=== PATIENT | female | born 1945 | race Hispanic/Latino ===

== ENCOUNTER 2017-07-04 09:48 | Emergency (ER) | payer OTHER ==
[2017-07-04] MEDS ORDERED: HYDROCODONE/APAP 10/325 TAB ONE (10:37)
--- NOTE | 2017-07-04 10:55 | RAD REPORT ---
EXAM DESCRIPTION: Isha Philippe (2 Views)07/04/2017 10:46 am CLINICAL HISTORY: Cough COMPARISON: March 2017 FINDINGS: The lungs appear clear of acute infiltrate. The heart is normal size IMPRESSION: No acute abnormalities displayed
[2017-07-04 11:14] LABS: Absolute Lymphocytes (CBC) 1.6 K/uL (0.7-4.9); Absolute Monocytes 0.9 K/uL (0.1-1.3); Absolute Neutrophil 7.1 K/uL (1.8-8.0); Basophils % 0.4 % (0-1.3); Eosinophils % 0.7 % (0-4.4); Hematocrit 34.7 % (36.0-45.0); MCH 27.5 pg (27.0-35.0); MCV 82.5 fL (80-100); MPV 8.5 fL (7.6-11.3); Monocytes % 9.7 % (3.3-12.3); RBC Red Blood Cell Count 4.21 M/uL (3.86-4.86)
[2017-07-04 11:26] LABS: Bicarbonate 28 mEq/L (21-31); Glucose Level 137 mg/dL (65-120); Potassium 3.6 mEq/L (3.6-5.0); Sodium Level 136 mEq/L (135-145)
[2017-07-04 11:27] LABS: BUN Blood Urea Nitrogen 10 mg/dL (6-20)
--- NOTE | 2017-07-04 14:02 | ER ---
Nurse's Notes [facility] Name: Estephania Corrales Age: 71 yrs Sex: Female : 1945 Arrival Date: 07/04/2017 Time: 09:51 Bed 16 Private MD: Diagnosis: Chest pain, unspecified;Contusion of left hip Presentation: 07/04 10:02 Presenting complaint: Patient states: mid-sternal chest pain that began 3 days ago. Pt aa5 states "I also had a fall 3 weeks ago and my left leg has been hurting". Transition of care: patient was not received from another setting of care. Onset of symptoms was 2018. Initial Sepsis Screen: Does the patient meet any 2 criteria? No. Patient's initial sepsis screen is negative. Does the patient have a suspected source of infection? No. Patient's initial sepsis screen is negative. Care prior to arrival: None. 10:02 Method Of Arrival: Ambulatory aa5 10:02 Acuity: PALMIR[place] 3 aa5 Historical: - Allergies: 10:03 No Known Allergies; aa5 - PMHx: 10:03 Diabetes - IDDM; Herniated disc; High Cholesterol; Hypertension; aa5 - PSHx: 10:04 elisa knees; right hip; Appendectomy; Cholecystectomy; aa5 - Immunization history:: Pneumococcal vaccine status is unknown. - Social history:: Smoking status: Patient/guardian denies using tobacco. - Family history:: not pertinent. - Hospitalizations: : No recent hospitalization is reported. Screenin:10 Abuse screen: Denies threats or abuse. Nutritional screening: No deficits noted. rb1 Tuberculosis screening: No symptoms or risk factors identified. Fall Risk Fall in past 12 months (25 points). Secondary diagnosis (15 points) impaired mobility, IV access (20 points). Ambulatory Aid- Crutches/Cane/Walker (15 pts). Gait- Impaired (20 pts.). Mental Status- Oriented to own ability (0 pts). Total Jeffrey Fall Scale indicates High Risk Score (45 or more points). Fall prevention measures have been instituted. Side Rails Up X 2 Placed Close to Nursing Station 1:1 Attendant Assigned Frequent Obs/Assessments Occuring As available patient and family educated on Fall Prevention Program and Strategies. Assessment: 10:10 General: Appears uncomfortable, Behavior is calm, cooperative, Denies fever, pt. rb1 stated, "I had both knees repaired and fell 3 weeks ago and hurt my back.". Pain: Complains of pain in left low back Pain radiates to left leg Pain currently is 10 out of 10 on a pain scale. Pain began gradually. Neuro: Level of Consciousness is awake, alert, obeys commands, Oriented to person, place, time, situation. Cardiovascular: Capillary refill < 3 seconds is brisk in bilateral fingers. Respiratory: Airway is patent Respiratory effort is even, unlabored, Respiratory pattern is regular, symmetrical. GI: No signs and/or symptoms were reported involving the gastrointestinal system. : No signs and/or symptoms were reported regarding the genitourinary system. Derm: Skin is dry, Skin is normal, Skin temperature is warm. Musculoskeletal: Range of motion: intact in all extremities. 11:00 Reassessment: Patient appears in no apparent distress at this time. No changes from rb1 previously documented assessment. 12:00 Reassessment: Patient appears in no apparent distress at this time. Patient and/or rb1 family updated on plan of care and expected duration. Pain level reassessed. Patient is alert, oriented x 3, equal unlabored respirations, skin warm/dry/pink. 13:00 Reassessment: Patient appears in no apparent distress at this time. No changes from rb1 previously documented assessment. Family at bedside. 14:00 Reassessment: Patient appears in no apparent distress at this time. Patient and/or rb1 family updated on plan of care and expected duration. Pain level reassessed. Patient is alert, oriented x 3, equal unlabored respirations, skin warm/dry/pink. Vital Signs: 10:05 BP 141 / 67; Pulse 80; Resp 16 S; Temp 98.1(O); Pulse Ox 100% on R/A; Weight 69.4 kg aa5 (R); Height 5 ft. 3 in. (160.02 cm) (R); Pain 10/10; 11:00 BP 124 / 52; Pulse 68; Resp 17; Pulse Ox 99% on R/A; rb1 12:00 BP 101 / 48; Pulse 63; Resp 18; Pulse Ox 96% on R/A; rb1 13:00 BP 110 / 52; Pulse 83; Resp 17; Pulse Ox 100% on R/A; rb1 14:00 BP 101 / 79; Pulse 71; Resp 17; Pulse Ox 97% on R/A; Pain 8/10; rb1 10:05 Body Mass Index 27.10 (69.40 kg, 160.02 cm) aa5 ED Course: 09:51 Patient arrived in ED. sb2 10:03 Triage completed. aa5 10:03 Arm band placed on. aa5 10:08 Gaurang Rosales MD is Attending Physician. rn 10:10 Patient has correct armband on for positive identification. Bed in low position. Call rb1 light in reach. Side rails up X 1. Pulse ox on. NIBP on. 10:10 Patient maintains SpO2 saturation greater than 95% on room air. rb1 10:34 Nunu Pastrana, CLAIR is Primary Nurse. rb1 10:43 Patient moved to radiology via wheelchair. jr1 10:43 X-ray completed. Patient tolerated procedure well. jr1 10:43 XRAY Chest Pa And Lat (2 Views) In Process Unspecified. EDMS 11:11 EKG done, by ED staff, reviewed by Gaurang Rosales MD. Initial lab(s) drawn, by de, sent to [facility] lab. Inserted saline lock: 22 gauge in right antecubital area, using aseptic technique. Blood collected. 14:02 XRAY Hip LEFT 2 view In Process Unspecified. EDMS 14:02 XRAY Pelvis In Process Unspecified. EDMS 14:28 IV discontinued, intact, bleeding controlled, No redness/swelling at site. Pressure rb1 dressing applied. 14:28 No provider procedures requiring assistance completed. rb1 Administered Medications: 10:39 Drug: [place] 10 mg-325 mg 1 tabs Route: PO; rb1 11:10 Follow up: Response: No adverse reaction; Pain is decreased rb1 14:13 Drug: TORadol 30 mg Route: IM; Site: left gluteus; rb1 14:27 Follow up: Response: No adverse reaction rb1 Outcome: 14:01 Discharge ordered by . rn 14:28 Patient left the ED. rb1 14:28 Discharged to home ambulatory. rb1 14:28 Condition: stable 14:28 Discharge instructions given to patient, Instructed on discharge instructions, follow up and referral plans. medication usage, Demonstrated understanding of instructions, follow-up care, medications, Prescriptions given X 1. Signatures: Dispatcher [employer] EDMS Elise Duran jr1 Gaurang Rosales MD MD rn Calderon, Audri, RN RN aa5 Nunu Pastrana, RN RN rb1 Woody, Shantell dh3 Benita Iqbal 2
--- NOTE | 2017-07-04 14:03 | EDPHYS ---
Physician Documentation [facility] Name: Estephania Corrales Age: 71 yrs Sex: Female : 1945 Arrival Date: 07/04/2017 Time: 09:51 Bed 16 Private MD: ED Physician Gaurang Rosales HPI: 07/04 13:06 This 71 yrs old Female presents to ER via Ambulatory with complaints of Chest rn Pain, left hip pain. 13:06 The patient or guardian reports chest pain that is located primarily in the anterior rn chest wall. Onset:. The pain does not radiate. The chest pain is described as aching. Modifying factors: The symptoms are alleviated by nothing. the symptoms are aggravated by movement, palpation of area. Severity of pain: At its worst the pain was mild in the emergency department the pain is unchanged. The patient has experienced similar episodes in the past. Reports chronic chest pain, has seen Dr. Nunes multiple times, states he told her "heart is normal" and not causing her chest pain episodes, reports intermittent chest pain over the last week, feels daily, worse with movement and palpation, reports fell 3 weeks ago and having intermittent left hip pain since then, saw her doctor after fall but no xrays ordered. No fever/cough. Seen at urgent care yesterday, given abx for earinfection. . Historical: - Allergies: 10:03 No Known Allergies; aa5 - PMHx: 10:03 Diabetes - IDDM; Herniated disc; High Cholesterol; Hypertension; aa5 - PSHx: 10:04 elisa knees; right hip; Appendectomy; Cholecystectomy; aa5 - Immunization history:: Pneumococcal vaccine status is unknown. - Social history:: Smoking status: Patient/guardian denies using tobacco. - Family history:: not pertinent. - Hospitalizations: : No recent hospitalization is reported. ROS: 13:06 Constitutional: Negative for fever, chills, and weight loss, Eyes: Negative for injury, rn pain, redness, and discharge, Neck: Negative for injury, pain, and swelling, Cardiovascular: + chest pain Respiratory: Negative for shortness of breath, cough, wheezing, and pleuritic chest pain, Abdomen/GI: Negative for abdominal pain, nausea, vomiting, diarrhea, and constipation, Back: Negative for injury and pain, MS/Extremity: Negative for deformity, Skin: Negative for injury, rash, and discoloration, Neuro: Negative for headache, weakness, numbness, tingling, and seizure. Exam: 13:06 Constitutional: This is a well developed, well nourished patient who is awake, alert, rn sitting, changing into gown. Head/Face: Normocephalic, atraumatic. Eyes: Pupils equal round and reactive to light, extra-ocular motions intact. Lids and lashes normal. Conjunctiva and sclera are non-icteric and not injected. Cornea within normal limits. Periorbital areas with no swelling, redness, or edema. Neck: Trachea midline, no thyromegaly or masses palpated, and no cervical lymphadenopathy. Supple, full range of motion without nuchal rigidity, or vertebral point tenderness. No Meningismus. Chest/axilla: + reproducible anterior chest wall tenderness, no skin changes Cardiovascular: Regular rate and rhythm with a normal S1 and S2. No gallops, murmurs, or rubs. Normal PMI, no JVD. No pulse deficits. Respiratory: Lungs have equal breath sounds bilaterally, clear to auscultation and percussion. No rales, rhonchi or wheezes noted. No increased work of breathing, no retractions or nasal flaring. MS/ Extremity: Pulses equal, no cyanosis. Neurovascular intact. Full, normal range of motion. Equal circumference. Neuro: Awake and alert, GCS 15, oriented to person, place, time, and situation. Cranial nerves II-XII grossly intact. Motor strength 5/5 in all extremities. Sensory grossly intact. Cerebellar exam normal. Normal gait. Vital Signs: 10:05 BP 141 / 67; Pulse 80; Resp 16 S; Temp 98.1(O); Pulse Ox 100% on R/A; Weight 69.4 kg aa5 (R); Height 5 ft. 3 in. (160.02 cm) (R); Pain 10/10; 11:00 BP 124 / 52; Pulse 68; Resp 17; Pulse Ox 99% on R/A; rb1 12:00 BP 101 / 48; Pulse 63; Resp 18; Pulse Ox 96% on R/A; rb1 13:00 BP 110 / 52; Pulse 83; Resp 17; Pulse Ox 100% on R/A; rb1 14:00 BP 101 / 79; Pulse 71; Resp 17; Pulse Ox 97% on R/A; Pain 8/10; rb1 10:05 Body Mass Index 27.10 (69.40 kg, 160.02 cm) aa5 MDM: 10:08 Patient medically screened. 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 . 14:01 Differential diagnosis: anxiety, chest wall pain, costochondritis, gastroesophageal rn reflux disease (GERD), pleurisy, pneumothorax. Data reviewed: vital signs, nurses notes, lab test result(s), EKG, radiologic studies, plain films, and as a result, I will discharge patient. Counseling: I had a detailed discussion with the patient and/or guardian regarding: the historical points, exam findings, and any diagnostic results supporting the discharge/admit diagnosis, lab results, radiology results, the need for outpatient follow up, to return to the emergency department if symptoms worsen or persist or if there are any questions or concerns that arise at home. Special discussion: Based on the patient's history, exam, and Dx evaluation, there is no indication for emergent intervention or inpatient Tx. It is understood by the patient/guardian that if the Sx's persist or worsen they need to return immediately for re-evaluation. I discussed with the patient/guardian in detail that at this point there is no indication for admission to the hospital. It is understood, however, that if the symptoms persist or worsen the patient needs to return immediately for re-evaluation. 07/04 10:15 Order name: CBC with Diff; Complete Time: 11:38 rn 07/04 10:15 Order name: Basic Metabolic Panel; Complete Time: : rn 07/04 10:15 Order name: Troponin (emerg Dept Use Only); Complete Time: 11: rn 07/04 10:15 Order name: XRAY Chest Pa And Lat (2 Views); Complete Time: 11: rn 07/04 12:29 Order name: XRAY Hip LEFT 2 view; Complete Time: 14:18 rn 07/04 12:30 Order name: XRAY Pelvis; Complete Time: 14:18 rn 07/04 10:15 Order name: IV Start; Complete Time: 11: rn 07/04 10:15 Order name: EKG - Nurse/Tech; Complete Time: 11: rn 07/04 10:15 Order name: EKG; Complete Time: 10:16 rn Administered Medications: 10:39 Drug: [place] 10 mg-325 mg 1 tabs Route: PO; rb1 11:10 Follow up: Response: No adverse reaction; Pain is decreased rb1 14:13 Drug: TORadol 30 mg Route: IM; Site: left gluteus; rb1 14:27 Follow up: Response: No adverse reaction rb1 Disposition: 07/04/17 14:01 Discharged to Home. Impression: Chest pain, unspecified, Contusion of left hip. - Condition is Stable. - Discharge Instructions: Contusion, Nonspecific Chest Pain, Hip Pain. - Prescriptions for Ultram 50 mg Oral Tablet - take 1 tablet by ORAL route every 6 hours As needed; 15 tablet. - Medication Reconciliation Form, Thank You Letter, Antibiotic Education, Prescription Opioid Use form. - Follow up: Private Physician; When: As needed; Reason: Recheck today's complaints, Re-evaluation by your physician. - Problem is chronic. - Symptoms have improved. Signatures: Dispatcher [employer] EDMS Gaurang Rosales MD MD rn Calderon, Audri RN RN aa5 Nunu Pastrana RN RN rb1 Corrections: (The following items were deleted from the chart) 14:28 14:01 07/04/2017 14:01 Discharged to Home. Impression: Chest pain, unspecified; rb1 Contusion of left hip. Condition is Stable. Forms are Medication Reconciliation Form, Thank You Letter, Antibiotic Education, Prescription Opioid Use. Follow up: Private Physician; When: As needed; Reason: Recheck today's complaints, Re-evaluation by your physician. Problem is chronic. Symptoms have improved. rn
[2017-07-04] MEDS ORDERED: KETOROLAC 30 MG/ML INJ ONE (14:13)
--- NOTE | 2017-07-04 14:16 | RAD REPORT ---
EXAM DESCRIPTION: RAD - Pelvis - 07/04/2017 2:02 pm CLINICAL HISTORY: Pelvic pain status post injury FINDINGS: No acute fracture or dislocation is seen. The bones are osteoporotic. Moderate osteoarthritis involves the left hip. Intramedullary blanca and compression screw in place into proximal right femur in good alignment
--- NOTE | 2017-07-04 14:17 | RAD REPORT ---
EXAM DESCRIPTION: RAD - Hip Left 2 View - 07/04/2017 2:02 pm CLINICAL HISTORY: Left hip pain status post injury FINDINGS: No acute fracture or dislocation is seen. The bones are osteoporotic. Moderate osteoarthritis involves the left hip.
[2017-07-04 14:32] VITALS: TEMP 98.1
[2017-07-04 14:36] VITALS: BP 110/52; O2SAT 100
--- NOTE | 2017-07-05 05:49 | EKG ---
Test Date: 2017-07-04 Test Time: 10:50:30 Collator: JODY MEASUREMENT RESULTS: Intervals: Rate: 70 SC: 154 QRSD: 74 QT: 388 QTc: 419 [place]: P: 15 SC: 154 QRS: -34 T: 37 INTERPRETIVE STATEMENTS: Normal sinus rhythm Left axis deviation Abnormal ECG Compared to ECG 03/20/2017 17:19:47 Left-axis deviation now present Electronically Signed On 07-05-17 05:48:12 CDT by Rodolfo Ritter
== END 2017-07-04 14:28 | disposition home or self-care (01) ==
LOC: ER 09:48
DX: S70.02XA Contusion of left hip, initial encounter (principal); W19.XXXA Unspecified fall, initial encounter; Y93.9 Activity, unspecified; Y92.9 Unspecified place or not applicable; I10 Essential (primary) hypertension
CPT/HCPCS: 36415; 71046; 72170; 80048; 84484; 85025; 93005; 96372; 99285

== ENCOUNTER 2017-07-31 10:56 | Emergency (ER) | payer OTHER ==
[2017-07-31] MEDS ORDERED: KETOROLAC 30 MG/ML INJ ONE (11:39)
[2017-07-31 11:51] LABS: Absolute Lymphocytes (CBC) 0.9 K/uL (0.7-4.9); Absolute Monocytes 0.7 K/uL (0.1-1.3); Absolute Neutrophil 11.2 K/uL (1.8-8.0); Basophils % 0.3 % (0-1.3); Eosinophils % 0.7 % (0-4.4); Hematocrit 34.3 % (36.0-45.0); Lymphocytes % 6.9 % (15.3-44.8); MCH 26.9 pg (27.0-35.0); MCV 83.3 fL (80-100); Monocytes % 5.5 % (3.3-12.3); RBC Red Blood Cell Count 4.12 M/uL (3.86-4.86)
[2017-07-31 12:08] LABS: Potassium 4.4 mEq/L (3.6-5.0)
[2017-07-31 12:15] LABS: Platelet Estimate ADEQ; Urine White Blood Cell Casts OK
[2017-07-31 12:16] LABS: Blood Morphology Comment NOT SEEN (NOT SEEN)
[2017-07-31 12:18] LABS: C-Reactive Protein 181.1 mg/L (<10.0)
[2017-07-31] MEDS ORDERED: FENTANYL CITR 100 MCG/2 ML ONE (13:21)
--- NOTE | 2017-07-31 13:23 | RAD REPORT ---
EXAM DESCRIPTION: RAD - Chest Single View - 07/31/2017 1:04 pm CLINICAL HISTORY: Chest and back pain COMPARISON: July 07 TECHNIQUE: AP portable chest image was obtained 1220 hours . FINDINGS: No focal mass, consolidation or failure. Lung markings are not significantly different fro m comparison. Heart and vasculature are normal. No measurable pleural effusion and no pneumothorax. N o acute bone finding. Left shoulder degenerative change and right shoulder degenerative and clavicle postsurgical changes noted. Old rib trauma changes are noted. No acute aortic findings suspected. IMPRESSION: No acute cardiopulmonary process. Chest is not significantly different from comparison.
--- NOTE | 2017-07-31 13:24 | ER ---
Nurse's Notes [facility] Name: Estephania Corrales Age: 71 yrs Sex: Female : 1945 Arrival Date: 07/31/2017 Time: 10:56 Bed 14 Private MD: Out, [facility] Diagnosis: Pain in knee;Pain in joint;Other chronic pain Presentation: 07/31 11:01 Presenting complaint: Patient states: Reports bilateral knee pain, neck and back pain, aj and chest pain that started 4 days ago. Patient is seeing pain management for same issues but states, "I just need something stronger for pain, can't you just give me like Tylenol #3?". 11:03 Transition of care: patient was not received from another setting of care. Onset of aj symptoms was July 27, 2017. Care prior to arrival: None. 11:03 Method Of Arrival: Wheelchair aj 11:03 Acuity: PALM[place]A 3 aj 12:17 Risk Assessment: Do you want to hurt yourself or someone else? Patient reports no ae1 desire to harm self or others. Initial Sepsis Screen: Does the patient meet any 2 criteria? No. Patient's initial sepsis screen is negative. Does the patient have a suspected source of infection? No. Patient's initial sepsis screen is negative. Triage Assessment: 11:05 General: Appears in no apparent distress. uncomfortable, Behavior is calm, cooperative, aj appropriate for age. Pain: Complains of pain in right knee, left knee, back of neck, back and chest. Neuro: Level of Consciousness is awake, alert, obeys commands, Oriented to person, place, time, situation, Appropriate for age. Cardiovascular: Capillary refill < 3 seconds in bilateral Patient's skin is warm and dry. Respiratory: Airway is patent Respiratory effort is even, unlabored, Respiratory pattern is regular, symmetrical. GI: No signs and/or symptoms were reported involving the gastrointestinal system. Derm: Skin is intact, is healthy with good turgor, Skin is pink, warm \\T\\ dry. normal. Musculoskeletal: Reports pain in right knee, left knee, back of neck, back and chest. Historical: - Allergies: 11:05 No Known Drug Allergies; aj - Home Meds: 11:05 carvedilol 25 mg Oral tab [Active]; celecoxib 200 mg Oral cap 1 cap once daily aj [Active]; cyclobenzaprine 5 mg Oral tab 1 tab 2 times daily [Active]; Janumet XR 50-1,000 mg Oral TM24 1 tab BID [Active]; Lyrica 75mg Oral 1 cap 3 times per day [Active]; Tramadol Oral [Active]; - PMHx: 11:05 Diabetes - IDDM; High Cholesterol; Hypertension; Herniated disc; Chronic pain; aj - PSHx: 11:05 right hip; elisa knees; Appendectomy; Cholecystectomy; aj - Immunization history:: Adult Immunizations up to date. - Social history:: Smoking status: Patient/guardian denies using tobacco. - Ebola Screening: : Patient negative for fever greater than or equal to 101.5 degrees Fahrenheit, and additional compatible Ebola Virus Disease symptoms Patient denies exposure to infectious person Patient denies travel to an Ebola-affected area in the 21 days before illness onset No symptoms or risks identified at this time. Screenin:16 Abuse screen: Denies threats or abuse. Denies injuries from another. Nutritional ae1 screening: No deficits noted. Tuberculosis screening: No symptoms or risk factors identified. Fall Risk None identified. Assessment: 12:00 General: Appears distressed, uncomfortable, Behavior is cooperative, agitated, anxious, ae1 crying, restless. Pain: Complains of pain in right knee Pain does not radiate. Patient reports "pain all over". Neuro: Level of Consciousness is awake, alert, obeys commands, Oriented to person, place, time, situation. Cardiovascular: Heart tones S1 S2 present Patient's skin is warm and dry. Respiratory: Airway is patent Respiratory effort is even, unlabored, Respiratory pattern is regular, symmetrical, Breath sounds are clear bilaterally. GI: No signs and/or symptoms were reported involving the gastrointestinal system. Abdomen is round Bowel sounds present X 4 quads. Abd is soft and non tender X 4 quads. : No signs and/or symptoms were reported regarding the genitourinary system. EENT: No signs and/or symptoms were reported regarding the EENT system. Derm: Skin is normal. Musculoskeletal: Reports pain in right knee denies injury, states pain started 4-5 days prior. 12:17 Pain: Pain began gradually, 4-5 days ago. ae1 13:09 Reassessment: Reassessment: Patient is sitting up in bed. General: Behavior is ae1 agitated, anxious, crying, restless. Pain: Complains of pain in back. Vital Signs: 11:05 BP 123 / 60; Pulse 92; Resp 16; Temp 98.7; Pulse Ox 98% on R/A; Weight 69.4 kg; Height aj 5 ft. 3 in. (160.02 cm); 13:08 BP 148 / 83; Pulse 93; Resp 17; Pulse Ox 98% on R/A; ae1 11:05 Body Mass Index 27.10 (69.40 kg, 160.02 cm) ED Course: 10:56 Patient arrived in ED. sb2 10:57 Out, [facility] is Private Physician. sb2 11:04 Triage completed. aj 11:05 Arm band placed on left wrist. Patient placed in an exam room. aj 11:08 John Chance, CLAIR is Primary Nurse. ae1 11:09 Jeffrey Logan PA is PHCP. jr8 11:09 Ted Garcia MD is Attending Physician. jr8 11:29 EKG done, by veterinary technician instructor. reviewed by Jeffrey YUSUF. at1 11:55 Initial lab(s) drawn, by va, sent to lab. Inserted saline lock: 24 gauge in right mh5 wrist, using aseptic technique. Blood collected. 11:56 Patient has correct armband on for positive identification. Placed in gown. Bed in low mh5 position. Call light in reach. Side rails up X2. Adult w/ patient. Warm blanket given. Pillow given. ekg monitor tech on. Pulse ox on. NIBP on. 11:57 Troponin (emerg Dept Use Only) Sent. mh5 11:57 ESR Sent. mh5 11:57 C-Reactive Protein Sent. mh5 11:57 Basic Metabolic Panel Sent. mh5 12:17 Patient maintains SpO2 saturation greater than 95% on room air. ae1 13:05 XRAY Chest (1 view) In Process Unspecified. EDMS 13:08 X-ray completed. Portable x-ray completed in exam room. Patient tolerated procedure mh1 well. 13:59 No provider procedures requiring assistance completed. IV discontinued, intact, ae1 bleeding controlled, No redness/swelling at site. Pressure dressing applied. Administered Medications: 11:45 Drug: TORadol 30 mg Route: IVP; Site: right wrist; ae1 13:13 Follow up: Response: Pain is unchanged, physician notified ae1 13:22 Drug: fentaNYL (PF) 50 mcg Route: IVP; Site: right wrist; ae1 13:58 Follow up: Response: Pain is unchanged, physician notified ae1 Outcome: 13:23 Discharge ordered by . colette 14:06 Discharged to home via wheelchair. ae1 14:06 Condition: stable 14:06 Discharge instructions given to patient, Instructed on discharge instructions, follow up and referral plans. Demonstrated understanding of instructions. 14:07 Patient left the ED. ae1 Signatures: Dispatcher [employer] EDMS Brenna Raygoza RN RN aj Harvey, Martha mh1 Jeffrey Logan PA PA jr8 gonzales, Amanda, rn surgery icu EKG Tat1 John Chance RN RN ae1 Nicky Nunez 5 Benita Iqbal sb2
--- NOTE | 2017-07-31 13:24 | EDPHYS ---
Physician Documentation [facility] Name: Estephania Corrales Age: 71 yrs Sex: Female : 1945 Arrival Date: 07/31/2017 Time: 10:56 Bed 14 Private MD: Out, [facility] ED Physician Ted Garcia HPI: 07/31 13:18 This 71 yrs old Female presents to ER via Wheelchair with complaints of Knee jr8 Pain, Back Pain, Chest Pain. 13:18 Patient came to ED complaining of neck and shoulder pain along with back pain and jr8 bilateral knee pain. Chronic pain patient due to spinal DDD and herniated discs. Sees pain management doctor for spine. Stated that she has never had bilateral knee pain and shoulder/neck pain before . Severity of symptoms: At their worst the symptoms were moderate in the emergency department the symptoms are unchanged. The patient has not experienced similar symptoms in the past. The patient has not recently seen a physician. Historical: - Allergies: 11:05 No Known Drug Allergies; aj - Home Meds: 11:05 carvedilol 25 mg Oral tab [Active]; celecoxib 200 mg Oral cap 1 cap once daily aj [Active]; cyclobenzaprine 5 mg Oral tab 1 tab 2 times daily [Active]; Janumet XR 50-1,000 mg Oral TM24 1 tab BID [Active]; Lyrica 75mg Oral 1 cap 3 times per day [Active]; Tramadol Oral [Active]; - PMHx: 11:05 Diabetes - IDDM; High Cholesterol; Hypertension; Herniated disc; Chronic pain; aj - PSHx: 11:05 right hip; elisa knees; Appendectomy; Cholecystectomy; aj - Immunization history:: Adult Immunizations up to date. - Social history:: Smoking status: Patient/guardian denies using tobacco. - Ebola Screening: : Patient negative for fever greater than or equal to 101.5 degrees Fahrenheit, and additional compatible Ebola Virus Disease symptoms Patient denies exposure to infectious person Patient denies travel to an Ebola-affected area in the 21 days before illness onset No symptoms or risks identified at this time. ROS: 13:18 Eyes: Negative for injury, pain, redness, and discharge, ENT: Negative for injury, jr8 pain, and discharge, Cardiovascular: Negative for chest pain, palpitations, and edema, Respiratory: Negative for shortness of breath, cough, wheezing, and pleuritic chest pain, Abdomen/GI: Negative for abdominal pain, nausea, vomiting, diarrhea, and constipation, Skin: Negative for injury, rash, and discoloration, Neuro: Negative for headache, weakness, numbness, tingling, and seizure. 13:18 Neck: Positive for pain at rest, tenderness. 13:18 Back: Positive for pain at rest, pain with movement, of the left trapezius, right trapezius, left scapular area and right scapular area. 13:18 MS/extremity: Positive for pain, of the right leg and left leg. Exam: 13:18 Eyes: Pupils equal round and reactive to light, extra-ocular motions intact. Lids and jr8 lashes normal. Conjunctiva and sclera are non-icteric and not injected. Cornea within normal limits. Periorbital areas with no swelling, redness, or edema. ENT: Nares patent. No nasal discharge, no septal abnormalities noted. Tympanic membranes are normal and external auditory canals are clear. Oropharynx with no redness, swelling, or masses, exudates, or evidence of obstruction, uvula midline. Mucous membranes moist. Chest/axilla: Normal chest wall appearance and motion. Nontender with no deformity. No lesions are appreciated. Cardiovascular: Regular rate and rhythm with a normal S1 and S2. No gallops, murmurs, or rubs. Normal PMI, no JVD. No pulse deficits. Respiratory: Lungs have equal breath sounds bilaterally, clear to auscultation and percussion. No rales, rhonchi or wheezes noted. No increased work of breathing, no retractions or nasal flaring. Abdomen/GI: Soft, non-tender, with normal bowel sounds. No distension or tympany. No guarding or rebound. No evidence of tenderness throughout. Skin: Warm, dry with normal turgor. Normal color with no rashes, no lesions, and no evidence of cellulitis. Neuro: Awake and alert, GCS 15, oriented to person, place, time, and situation. Cranial nerves II-XII grossly intact. Motor strength 5/5 in all extremities. Sensory grossly intact. Cerebellar exam normal. Normal gait. 13:18 Neck: External neck: tenderness, that is mild, of the left trapezius and right trapezius, C-spine: appears grossly normal, Thyroid: appears normal, Trachea: is midline with no obvious abnormalities, ROM/movement: pain, that is mild, with any movement. 13:18 Back: pain, that is moderate, of the left trapezius, right trapezius, left scapular area and right scapular area. 13:18 Musculoskeletal/extremity: ROM: intact in all extremities, Circulation is intact in all extremities. Sensation intact. bilateral knee tenderness . Vital Signs: 11:05 BP 123 / 60; Pulse 92; Resp 16; Temp 98.7; Pulse Ox 98% on R/A; Weight 69.4 kg; Height aj 5 ft. 3 in. (160.02 cm); 13:08 BP 148 / 83; Pulse 93; Resp 17; Pulse Ox 98% on R/A; ae1 11:05 Body Mass Index 27.10 (69.40 kg, 160.02 cm) aj MDM: 11:09 Patient medically screened. jr8 13:18 Data reviewed: vital signs, nurses notes, lab test result(s), EKG, radiologic studies, jr8 plain films, and as a result, I will discharge patient. Data interpreted: Pulse oximetry: on room air is 98 %. Interpretation: normal. 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 13:18 ED course: discussed with patient and family that her ESR and CRP are elevated. Could jr8 be indicator of rheumatologic condition. Needs to follow up with seasonal recruiter and PCP along with pain management . 07/31 11:33 Order name: CBC with Diff; Complete Time: 13:11 07/31 11:33 Order name: Basic Metabolic Panel; Complete Time: 12:30 07/31 11:33 Order name: C-Reactive Protein; Complete Time: 12:30 07/31 11:33 Order name: ESR; Complete Time: 13:11 07/31 11:33 Order name: Troponin (emerg Dept Use Only); Complete Time: 12:30 07/31 11:56 Order name: CBC Smear Scan; Complete Time: 13:11 EDCT 07/31 11:33 Order name: Urine Dipstick-Ancillary (obtain specimen) [facility] 07/31 11:33 Order name: EKG - Nurse/Tech; Complete Time: 11:35 8 07/31 11:33 Order name: IV; Complete Time: 11:45 8 07/31 11:33 Order name: XRAY Chest (1 view); Complete Time: 13:23 [facility] 07/31 12:17 Order name: EKG Electrocardiogram EDCT Administered Medications: 11:45 Drug: TORadol 30 mg Route: IVP; Site: right wrist; ae1 13:13 Follow up: Response: Pain is unchanged, physician notified ae1 13:22 Drug: fentaNYL (PF) 50 mcg Route: IVP; Site: right wrist; ae1 13:58 Follow up: Response: Pain is unchanged, physician notified ae1 Disposition: 07/31/17 13:23 Discharged to Home. Impression: Pain in knee, Pain in joint, Other chronic pain. - Condition is Stable. - Discharge Instructions: Chronic Pain. - Medication Reconciliation Form, Thank You Letter, Antibiotic Education, Prescription Opioid Use form. - Follow up: Private Physician; When: 2 - 3 days; Reason: Recheck today's complaints, Continuance of care, Re-evaluation by your physician. - Problem is new. - Symptoms have improved. Addendum: 08/02/2017 13:28 Co-signature as Attending Physician, Ted Garcia MD. g s Signatures: Dispatcher [employer] [facility] Brenna Raygoza RN Jeffrey Cobos PA PA jr8 John Chance RN RN ae1 Ted Garcia MD MD Corrections: (The following items were deleted from the chart) 07/31 14:07 13:23 07/31/2017 13:23 Discharged to Home. Impression: Pain in knee; Pain in joint; ae1 Other chronic pain. Condition is Stable. Forms are Medication Reconciliation Form, Thank You Letter, Antibiotic Education, Prescription Opioid Use. Follow up: Private Physician; When: 2 - 3 days; Reason: Recheck today's complaints, Continuance of care, Re-evaluation by your physician. Problem is new. Symptoms have improved. jr8
--- NOTE | 2017-07-31 13:35 | EKG ---
Test Date: 2017-07-31 Test Time: 11:24:33 Bone Drier: ALONSO MEASUREMENT RESULTS: Intervals: Rate: 84 IL: 140 QRSD: 70 QT: 354 QTc: 418 [place]: P: 23 IL: 140 QRS: -16 T: 25 INTERPRETIVE STATEMENTS: Normal sinus rhythm Normal ECG Compared to ECG 07/04/2017 10:50:30 Left-axis deviation no longer present Electronically Signed On 07-31-17 13:34:18 CDT by Rodolfo Ritter
[2017-07-31 14:10] VITALS: TEMP 98.7; O2SAT 98
[2017-07-31 14:11] VITALS: BP 148/83
== END 2017-07-31 14:07 | disposition home or self-care (01) ==
LOC: ER 10:56
DX: G89.29 Other chronic pain (principal); I10 Essential (primary) hypertension; E11.9 Type 2 diabetes mellitus without complications; E78.00 Pure hypercholesterolemia, unspecified
CPT/HCPCS: 36415; 71045; 80048; 84484; 85025; 85652; 86140; 93005; 96374; 96375; 99285; J3010

== ENCOUNTER 2017-10-02 19:20 | Emergency (ER) | payer OTHER ==
[2017-10-02] MEDS ORDERED: ASPIRIN 81 MG CHEWABLE TABLET ONE (20:03)
[2017-10-02 20:07] LABS: Absolute Lymphocytes (CBC) 1.4 K/uL (0.7-4.9); Absolute Monocytes 1.1 K/uL (0.1-1.3); Absolute Neutrophil 6.7 K/uL (1.8-8.0); Basophils % 0.8 % (0-1.3); Eosinophils % 1.4 % (0-4.4); Hematocrit 31.2 % (36.0-45.0); Lymphocytes % 14.9 % (15.3-44.8); MCH 29.1 pg (27.0-35.0); MCV 86.8 fL (80-100); MPV 8.7 fL (7.6-11.3); Monocytes % 11.5 % (3.3-12.3); RBC Red Blood Cell Count 3.59 M/uL (3.86-4.86)
[2017-10-02] MEDS ORDERED: KETOROLAC 30 MG/ML INJ ONE (20:07)
[2017-10-02 20:15] LABS: Protime INR 1.07
[2017-10-02 20:35] LABS: ALT/SGPT 36 U/L (12-78); AST/SGOT 72 U/L (15-37); Albumin 3.4 g/dL (3.4-5.0); Alkaline Phosphatase 128 U/L (45-117); BUN Blood Urea Nitrogen 14 mg/dL (7-18); Bicarbonate 26 mmol/L (21-32); Bilirubin Direct 0.1 mg/dL (0-0.2); Bilirubin Total 0.4 mg/dL (0.2-1.0); CKMB Creatine Kinase MB < 1.0 ng/mL (0.3-3.6); Creatine Phosphokinase 56 U/L (26-192); Glucose Level 183 mg/dL (74-106); Magnesium 1.8 mg/dL (1.8-2.4); NT PRO-BNP 203 pg/mL (<125); Potassium 3.7 mmol/L (3.5-5.1); Protein, Total 7.2 g/dL (6.4-8.2); Sodium Level 141 mmol/L (136-145)
--- NOTE | 2017-10-02 20:50 | RAD REPORT ---
EXAM DESCRIPTION: RAD - Chest Single View - 10/02/2017 8:29 pm CLINICAL HISTORY: Persistent chest pain and neck pain COMPARISON: July 31, 2017 TECHNIQUE: AP portable chest image was obtained 2025 . FINDINGS: No focal lung parenchymal process. No failure or volume overload. Lung markings are simila r to comparison. Heart and vasculature are normal. No measurable pleural effusion and no pneumothorax . No acute bone finding. Chronic degenerative and postsurgical changes are noted at the shoulder join ts. No acute aortic findings suspected. IMPRESSION: No acute cardiopulmonary process. No significant interval change.
--- NOTE | 2017-10-02 21:20 | RAD REPORT ---
EXAM DESCRIPTION: CT - Angio Aorta For Dissection - 10/02/2017 9:10 pm CLINICAL HISTORY: Severe chest pain, neck and back pain COMPARISON: None. TECHNIQUE: Dynamically enhanced 3 mm thick images of the chest, abdomen, and upper pelvis were obtai nae during administration of approximately 150mL Isovue 370 IV contrast. Sagittal and coronal reconst ruction images were generated and reviewed. Exam utilizes a protocol to evaluate entire course of the aorta. All CT scans are performed using dose optimization technique as appropriate and may include automated exposure control or mA/KV adjustment according to patient size. FINDINGS: Aorta is normal in diameter with no dissection or other acute aortic findings. Reconstruct ion images show no significant findings. Pulmonary arteries are normal as well. No cardiomegaly, pericardial thickening or pericardial effusio n. No mass or infiltrate in the lung parenchyma. No pleural thickening, pleural effusion or pneumothorax . No abnormal mediastinal or hilar mass or lymphadenopathy seen. No chest wall mass or abnormal axillar y lymphadenopathy. Celiac, SMA and renal arteries show no suspicious findings. Solid abdominal viscera and bowel show no significant findings. Gallbladder is absent. No biliary tree dilatation. No mass or abnormal lympha denopathy. No free air, free fluid or inflammatory stranding. No urinary bladder abnormality. Postsurgical changes are noted to the right hip with significant bilateral hip joint degenerative estevan nge. Patient has severe lower lumbar degenerative change. L5 pars defects present with grade 1 spondy lolisthesis. There is extensive heterotopic bone formation around the posterior elements. Central spi nal stenosis and foraminal stenosis are pronounced at L5-S1. Mid lumbar spine shows significant but l ess prominent degenerative change. No acute compression fracture or pathologic bone process. IMPRESSION: Negative CT scan of the aorta for dissection, aneurysm or acute finding. No mass, infiltrate or acute CT chest finding. No acute finding of the solid abdominal viscera or bowel. Severe degenerative change in the lower lumbar spine as detailed. No pathologic bone process seen.
[2017-10-02 21:58] LABS: Urine Blood TRACE (NEG); Urine Glucose NEGATIVE (NEG); Urine Protein NEGATIVE (NEG)
[2017-10-02] MEDS ORDERED: FENTANYL CITR 100 MCG/2 ML ONE (21:58)
--- NOTE | 2017-10-02 23:04 | EDPHYS ---
Physician Documentation [facility] Name: Estephania Corrales Age: 71 yrs Sex: Female : 1945 Arrival Date: 10/02/2017 Time: 19:21 Bed 24 Private MD: OSIEL CORLEY ED Physician Gaurang Rosales HPI: 10/02 19:42 This 71 yrs old Female presents to ER via Ambulatory with complaints of Chest cp Pain, Congestion, Neck Pain, >24Hrs Old. Historical: - Allergies: 20:20 No Known Allergies; kr2 - Home Meds: 20:20 carvedilol 25 mg Oral tab [Active]; celecoxib 200 mg Oral cap 1 cap once daily kr2 [Active]; cyclobenzaprine 5 mg Oral tab 1 tab 2 times daily [Active]; Janumet XR 50-1,000 mg Oral TM24 1 tab BID [Active]; Lyrica 75mg Oral 1 cap 3 times per day [Active]; Tramadol Oral [Active]; montelukast 10 mg oral tab 1 tab once daily [Active]; esomeprazole magnesium 20 mg oral cpDR 1 cap once daily [Active]; - PMHx: 20:20 Chronic pain; Diabetes - IDDM; Herniated disc; High Cholesterol; Hypertension; kr2 - PSHx: 20:20 right hip; elisa knees; Appendectomy; Cholecystectomy; kr2 - Immunization history:: Adult Immunizations unknown. - Social history:: Smoking status: Patient/guardian denies using tobacco. - Ebola Screening: : No symptoms or risks identified at this time. ROS: 19:45 Constitutional: Negative for body aches, chills, fever, poor PO intake. cp 19:45 Eyes: Negative for injury, pain, redness, and discharge. cp 19:45 ENT: Negative for drainage from ear(s), ear pain, sore throat, difficulty swallowing, difficulty handling secretions. 19:45 Neck: Positive for pain at rest, Negative for stiffness, bony tenderness. 19:45 Cardiovascular: Positive for chest pain, Negative for edema, palpitations. 19:45 Respiratory: Positive for shortness of breath, Negative for cough, wheezing. 19:45 Abdomen/GI: Negative for abdominal pain, nausea, vomiting, and diarrhea, diarrhea, constipation, black/tarry stool, rectal bleeding. 19:45 Back: Positive for pain at rest. 19:45 : Negative for urinary symptoms. 19:45 MS/extremity: Negative for paresthesias, swelling, tenderness. 19:45 Skin: Negative for cellulitis, rash. 19:45 Neuro: Negative for altered mental status, headache, syncope, near syncope, weakness. 19:45 All other systems are negative. Exam: 19:50 Constitutional: The patient appears in no acute distress, alert, awake, cp non-diaphoretic, non-toxic, well developed, well nourished. 19:50 Head/Face: Normocephalic, atraumatic. cp 19:50 Eyes: Periorbital structures: appear normal, Pupils: equal, round, and reactive to light and accomodation, Extraocular movements: intact throughout, Conjunctiva: normal, no exudate, no injection, Sclera: no appreciated abnormality, Lids and lashes: appear normal, bilaterally. 19:50 ENT: External ear(s): are unremarkable, Ear canal(s): are normal, clear, TM's: bulging, is not appreciated, bilaterally, dullness, bilaterally, erythema, is not appreciated, bilaterally, Nose: is normal, Mouth: Lips: moist, Oral mucosa: moist, Posterior pharynx: Airway: no evidence of obstruction, patent, Tonsils: are normal in appearance, Uvula: midline, swelling, is not appreciated, erythema, is not appreciated, exudate, is not appreciated, Voice: is normal. 19:50 Neck: ROM/movement: is normal, is supple, no range of motions limitations, no meningismus, no nuchal rigidity, Lymph nodes: no appreciated lymphadenopathy. 19:50 Chest/axilla: Inspection: normal, Palpation: crepitus, is not appreciated, tenderness, that is moderate, of the anterior aspect of right upper chest, anterior aspect of left upper chest and mid-sternal area. 19:50 Cardiovascular: Rate: normal, Rhythm: regular, Pulses: Pulses are 2+ in right radial artery and left radial artery. Edema: is not appreciated, JVD: is not appreciated. 19:50 Respiratory: the patient does not display signs of respiratory distress, Respirations: normal, no use of accessory muscles, no retractions, no splinting, no tachypnea, labored breathing, is not present, Breath sounds: are clear throughout, no decreased breath sounds, no stridor, no wheezing. 19:50 Abdomen/GI: Inspection: abdomen appears normal, Bowel sounds: active, all quadrants, Palpation: abdomen is soft and non-tender, in all quadrants. 19:50 Back: pain, that is moderate, ROM is painful. 19:50 Skin: cellulitis, is not appreciated, no rash present. 19:50 Neuro: Orientation: to person, place \T\ time. Mentation: lucid, able to follow commands, Cerebellar function: is grossly normal, Motor: moves all fours, strength is normal, Sensation: is normal, Gait: needs assistance, uses a walker. 20:15 ECG was reviewed by the Attending Physician. cp Vital Signs: 19:50 BP 141 / 68; Pulse 86; Resp 17; Temp 98.9; Pulse Ox 99% on R/A; Weight 69.4 kg; Height kr2 5 ft. 3 in. (160.02 cm); Pain 10/10; 20:39 BP 134 / 80 LA; kr2 20:39 BP 149 / 68 RA; kr2 21:38 BP 155 / 67; Pulse 95; Resp 17; Pulse Ox 97% on R/A; kr2 22:42 BP 141 / 63; Pulse 81; Resp 23; Pulse Ox 98% on R/A; kr2 19:50 Body Mass Index 27.10 (69.40 kg, 160.02 cm) kr2 MDM: 19:33 Patient medically screened. cp 20:00 Differential diagnosis: abnormal EKG, acute myocardial infarction, acute pericarditis, cp chest wall pain, costochondritis, esophagitis, gastritis, peptic ulcer disease, pericarditis, pleurisy, pneumonia, pneumothorax, pulmonary embolus, stable angina, thoracic aortic disection, unstable angina. The patient was given aspirin in the Emergency Department. 23:03 Counseling: I had a detailed discussion with the patient and/or guardian regarding: the pm1 historical points, exam findings, and any diagnostic results supporting the discharge/admit diagnosis, lab results, radiology results, the need for outpatient follow up, to return to the emergency department if symptoms worsen or persist or if there are any questions or concerns that arise at home. 23:03 Data reviewed: vital signs. pm1 10/02 19:39 Order name: Basic Metabolic Panel; Complete Time: 20:42 cp 08/03 21:23 Interpretation: Normal except: CL 109; GLUC 183. cp 08/03 19:39 Order name: CBC with Diff; Complete Time: 20:35 cp 08/03 20:35 Interpretation: Normal except: RBC 3.59; HGB 10.5; HCT 31.2; MCV 86.8; RDW 17.0; LYM% cp 14.9. 08/03 19:39 Order name: Ckmb; Complete Time: 20:42 cp /03 19:39 Order name: CPK; Complete Time: 20:42 cp /03 19:39 Order name: LFT's; Complete Time: 20:42 cp 08/03 22:07 Interpretation: Normal except: AST 72; ALK 128; GLOB 3.8; A/G 0.9. cp 08/03 19:39 Order name: Magnesium; Complete Time: 20:42 cp 08/03 19:39 Order name: NT PRO-BNP; Complete Time: 20:42 cp /03 19:39 Order name: PT-INR; Complete Time: 20:35 cp / 19:39 Order name: Ptt, Activated; Complete Time: 20:35 cp 08/ 19:39 Order name: Troponin (emerg Dept Use Only); Complete Time: 20:35 cp /03 19:39 Order name: XRAY Chest (1 view); Complete Time: 21:22 cp 08/03 21:54 Order name: Urine Dipstick--Ancillary (enter results); Complete Time: 22:06 mw2 08/03 22:07 Interpretation: Normal except: UBLD TRACE. cp / 22:11 Order name: Troponin (emerg Dept Use Only) cp / 22:11 Order name: Troponin (Emerg Dept Use Only); Complete Time: 23:03 EDMS / 19:39 Order name: EKG; Complete Time: 19:40 cp / 19:39 Order name: Cardiac monitoring; Complete Time: 20:00 cp / 19:39 Order name: EKG - Nurse/Tech; Complete Time: 20:00 cp / 19:39 Order name: IV Saline Lock; Complete Time: 20:00 cp 10/02 19:39 Order name: Labs collected and sent; Complete Time: 20:00 cp 10/02 19:39 Order name: O2 Per Protocol; Complete Time: 20:00 cp 10/02 19:39 Order name: O2 Sat Monitoring; Complete Time: 20:01 cp 10/02 19:39 Order name: Urine Dipstick-Ancillary (obtain specimen); Complete Time: 21:58 cp 10/02 20:36 Order name: Blood Pressure Recheck: bilateral upper extremities; Complete Time: 20:41 cp 10/02 20:43 Order name: CT Aorta for Dissection; Complete Time: 21:22 cp 10/02 22:11 Order name: EKG - Nurse/Tech; Complete Time: 22:20 cp 10/02 22:11 Order name: EKG; Complete Time: 22:11 cp 10/02 22:11 Order name: Repeat Cardiac Enzymes at: 2230; Complete Time: 22:23 cp EC:15 Rate is 81 beats/min. Rhythm is regular. [place] interval is normal. QRS interval is normal. cp QT interval is normal. Interpreted by me. Reviewed by me. Administered Medications: 20:00 Drug: Aspirin Chewable Tablet 324 mg Route: PO; kr2 20:41 Follow up: Response: No adverse reaction kr2 20:05 Drug: TORadol 30 mg Route: IVP; Site: right antecubital; kr2 20:41 Follow up: Response: No adverse reaction; Pain is decreased kr2 21:57 Drug: fentaNYL (PF) 50 mcg Route: IVP; Site: right antecubital; kr2 22:20 Follow up: Response: No adverse reaction; Pain is decreased kr2 Disposition: 10/03 02:10 Co-signature as Attending Physician, Gaurang Rosales MD. rn Disposition: 10/02/17 23:03 Discharged to Home. Impression: Other chronic pain, Other chest pain, Back Pain. - Condition is Stable. - Discharge Instructions: Back Pain, Adult, Nonspecific Chest Pain, Chronic Pain, Aspirin and Your Heart. - Medication Reconciliation Form, Thank You Letter, Antibiotic Education, Prescription Opioid Use form. - Follow up: OSIEL CORLEY; When: 2 - 3 days; Reason: Recheck today's complaints. - Problem is chronic. - Symptoms have improved. Signatures: Dispatcher [employer] EDGaurang Porter MD MD rn Page, Corey, PA PA cp Aba Stallworth, ULTRASOUND SPECIALIST ULTRASOUND SPECIALIST pm1 Vilma, Pham, RN RN kr2 Corrections: (The following items were deleted from the chart) 10/02 23:13 23:03 10/02/2017 23:03 Discharged to Home. Impression: Other chronic pain; Other chest kr2 pain; Back Pain. Condition is Stable. Discharge Instructions: Back Pain, Adult, Nonspecific Chest Pain, Chronic Pain, Aspirin and Your Heart. Forms are Medication Reconciliation Form, Thank You Letter, Antibiotic Education, Prescription Opioid Use. Follow up: OSIEL CORLEY; When: 2 - 3 days; Reason: Recheck today's complaints. Problem is chronic. Symptoms have improved. pm1
--- NOTE | 2017-10-02 23:04 | ER ---
Nurse's Notes [facility] Name: Estephania Corrales Age: 71 yrs Sex: Female : 1945 Arrival Date: 10/02/2017 Time: 19:21 Bed 24 Private MD: OSIEL CORLEY Diagnosis: Other chronic pain;Other chest pain;Back Pain Presentation: 10/02 20:12 Presenting complaint: Patient states: she has been have severe pain in her chest, neck kr2 and back for 2 weeks and it has gotten so bad she can't stand it anymore. Also complains of congestion and shortness of breath with exertion. Transition of care: patient was not received from another setting of care. Onset of symptoms was September 18, 2017. Risk Assessment: Do you want to hurt yourself or someone else? Patient reports no desire to harm self or others. Initial Sepsis Screen: Does the patient meet any 2 criteria? No. Patient's initial sepsis screen is negative. Does the patient have a suspected source of infection? No. Patient's initial sepsis screen is negative. Care prior to arrival: None. 20:12 Method Of Arrival: Ambulatory kr2 20:12 Acuity: PALMIRA 3 kr2 Triage Assessment: 20:14 General: Appears in no apparent distress. uncomfortable, well groomed, well developed, kr2 well nourished, Behavior is cooperative, anxious. Pain: Complains of pain in neck, mid-sternal area, middle of back Pain currently is 10 out of 10 on a pain scale. Quality of pain is described as aching, pressure, sharp, Is continuous, Alleviated by nothing. Aggravated by increased activity, Noted to be crying, restless. EENT: Oral mucosa is moist. Neuro: Level of Consciousness is awake, alert, obeys commands, Oriented to person, place, time, situation, Appropriate for age. Cardiovascular: Heart tones S1 S2 Capillary refill < 3 seconds in bilateral fingers Patient's skin is warm and dry. Rhythm is regular. Respiratory: Reports shortness of breath on exertion cough that is dry, Airway is patent Respiratory effort is even, unlabored, Respiratory pattern is regular, symmetrical. GI: Abdomen is round non-distended. : Denies burning with urination. Derm: Skin is intact, is healthy with good turgor, Skin is pink, warm \T\ dry. Musculoskeletal: Circulation, motion, and sensation intact. Historical: - Allergies: 20:20 No Known Allergies; kr2 - Home Meds: 20:20 carvedilol 25 mg Oral tab [Active]; celecoxib 200 mg Oral cap 1 cap once daily kr2 [Active]; cyclobenzaprine 5 mg Oral tab 1 tab 2 times daily [Active]; Janumet XR 50-1,000 mg Oral TM24 1 tab BID [Active]; Lyrica 75mg Oral 1 cap 3 times per day [Active]; Tramadol Oral [Active]; montelukast 10 mg oral tab 1 tab once daily [Active]; esomeprazole magnesium 20 mg oral cpDR 1 cap once daily [Active]; - PMHx: 20:20 Chronic pain; Diabetes - IDDM; Herniated disc; High Cholesterol; Hypertension; kr2 - PSHx: 20:20 right hip; elisa knees; Appendectomy; Cholecystectomy; kr2 - Immunization history:: Adult Immunizations unknown. - Social history:: Smoking status: Patient/guardian denies using tobacco. - Ebola Screening: : No symptoms or risks identified at this time. Screenin:14 Abuse screen: Denies threats or abuse. Denies injuries from another. Nutritional kr2 screening: No deficits noted. Tuberculosis screening: No symptoms or risk factors identified. Fall Risk None identified. Assessment: 19:50 Pain: Pain does not radiate. Pain began 2 weeks ago. kr2 20:23 Reassessment: See triage assessment. kr2 21:37 Reassessment: Patient appears in no apparent distress at this time. Patient and/or kr2 family updated on plan of care and expected duration. Pain level reassessed. Patient is alert, oriented x 3, equal unlabored respirations, skin warm/dry/pink. Patient states symptoms have improved. 21:55 Reassessment: Patient appears in no apparent distress at this time. Patient and/or kr2 family updated on plan of care and expected duration. Pain level reassessed. Patient is alert, oriented x 3, equal unlabored respirations, skin warm/dry/pink. Patient reports pain is returning, MADELIN García notified. 22:41 Reassessment: Patient appears in no apparent distress at this time. Patient and/or kr2 family updated on plan of care and expected duration. Pain level reassessed. Patient is alert, oriented x 3, equal unlabored respirations, skin warm/dry/pink. Patient states symptoms have improved. 23:11 Reassessment: Patient appears in no apparent distress at this time. Patient and/or kr2 family updated on plan of care and expected duration. Pain level reassessed. Patient is alert, oriented x 3, equal unlabored respirations, skin warm/dry/pink. Pain is decreased. Vital Signs: 19:50 BP 141 / 68; Pulse 86; Resp 17; Temp 98.9; Pulse Ox 99% on R/A; Weight 69.4 kg; Height kr2 5 ft. 3 in. (160.02 cm); Pain 10/10; 20:39 BP 134 / 80 LA; kr2 20:39 BP 149 / 68 RA; kr2 21:38 BP 155 / 67; Pulse 95; Resp 17; Pulse Ox 97% on R/A; kr2 22:42 BP 141 / 63; Pulse 81; Resp 23; Pulse Ox 98% on R/A; kr2 19:50 Body Mass Index 27.10 (69.40 kg, 160.02 cm) kr2 ED Course: 19:21 Patient arrived in ED. ds1 19:22 OSIEL CORLEY is Private Physician. ds1 19:33 Anson Guerra PA is PHCP. cp 19:33 Gaurang Rosales MD is Attending Physician. cp 19:46 Pham Esparza, CLAIR is Primary Nurse. kr2 19:50 Patient has correct armband on for positive identification. Bed in low position. Call kr2 light in reach. Side rails up X2. awake overnight monitor on. Pulse ox on. NIBP on. Door closed. Warm blanket given. Head of bed elevated. 19:50 Patient maintains SpO2 saturation greater than 95% on room air. kr2 19:55 Inserted saline lock: 20 gauge in right antecubital area, using aseptic technique. kr2 Blood collected. 20:10 EKG done, by ED staff, reviewed by Anson YUSUF. kr2 20:14 Triage completed. kr2 20:17 Arm band placed on. kr2 20:28 XRAY Chest (1 view) In Process Unspecified. EDMS 21:[address] via stretcher. kc3 21:10 CT Aorta for Dissection In Process Unspecified. EDMS 22:14 PHCP role handed off by Anson Guerra PA pm1 22:14 Aba Stallworth NP is PHCP. pm1 22:25 Repeat lab(s) drawn. by me, sent to lab. EKG done, by ED staff, reviewed by Aba Stallworth NP. 23:03 OSIEL CORLEY is Referral Physician. pm1 23:12 No provider procedures requiring assistance completed. IV discontinued, intact, kr2 bleeding controlled, No redness/swelling at site. Pressure dressing applied. Administered Medications: 20:00 Drug: Aspirin Chewable Tablet 324 mg Route: PO; kr2 20:41 Follow up: Response: No adverse reaction kr2 20:05 Drug: TORadol 30 mg Route: IVP; Site: right antecubital; kr2 20:41 Follow up: Response: No adverse reaction; Pain is decreased kr2 21:57 Drug: fentaNYL (PF) 50 mcg Route: IVP; Site: right antecubital; kr2 22:20 Follow up: Response: No adverse reaction; Pain is decreased kr2 Outcome: 23:03 Discharge ordered by MD. pm1 23:12 Discharged to home ambulatory, with family. kr2 23:12 Condition: good 23:12 Discharge instructions given to patient, Instructed on discharge instructions, follow up and referral plans. Demonstrated understanding of instructions, follow-up care. 23:13 Patient left the ED. kr2 Signatures: Dispatcher [employer] [facility] Magnolia Khan dsKayla Anson Guerra PA PA cp Aba Stallworth NP HYDRO STATION OPERATOR pm1 Pham Esparza RN RN jenna2 Nury Adames kc3
[2017-10-02 23:18] VITALS: TEMP 98.9
[2017-10-02 23:21] VITALS: BP 141/63; O2SAT 98
--- NOTE | 2017-10-03 07:26 | EKG ---
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
--- NOTE | 2017-10-03 07:28 | EKG ---
Test Date: 2017-10-02 Test Time: 20:07:40 Director [employer]: KEVIN MEASUREMENT RESULTS: Intervals: Rate: 81 FL: 152 QRSD: 76 QT: 354 QTc: 411 [place]: P: 49 FL: 152 QRS: -14 T: 50 INTERPRETIVE STATEMENTS: Normal sinus rhythm Normal ECG Compared to ECG 07/31/2017 11:24:33 no significant change from previous ECG Electronically Signed On 10-03-17 07:27:42 CDT by Rodolfo Ritter
== END 2017-10-02 23:13 | disposition home or self-care (01) ==
LOC: ER 19:20
DX: G89.29 Other chronic pain (principal); M54.9 Dorsalgia, unspecified; I10 Essential (primary) hypertension; E11.9 Type 2 diabetes mellitus without complications; E78.00 Pure hypercholesterolemia, unspecified
CPT/HCPCS: 36415; 71045; 71275; 74175; 80048; 80076; 81003; 82550; 82553; 83735; 83880; 84484 ×2; 85025; 85610; 85730; 93005 ×2; 96374; 96375; 99285; J3010; Q9967

== ENCOUNTER 2018-03-07 12:23 | Emergency (ER) | payer OTHER ==
--- OUTSIDE RECORDS SUMMARY | 2018-03-07 12:26 | XMS REPORT ---
:1945 [facility] Address [address] [place] [address] [address] [place] [address] Care Team Providers Name Role Phone Unavailable Unavailable Unavailable Problems This patient has no known problems. Allergies, Adverse Reactions, Alerts This patient has no known allergies or adverse reactions. Medications This patient has no known medications.
[2018-03-07] MEDS ORDERED: DIPHENHYDRAMINE 25 MG TAB/CAP ONE (13:57)
[2018-03-07] MEDS ORDERED: predniSONE 20 MG TAB ONE (13:57)
[2018-03-07] MEDS ORDERED: FAMOTIDINE 20 MG TAB ONE (13:57)
--- NOTE | 2018-03-07 14:15 | RAD REPORT ---
EXAM DESCRIPTION: CT - CTHCSPWOC - 03/07/2018 1:53 pm CLINICAL HISTORY: Trauma, head and neck injury. PAIN COMPARISON: Soft Tissue Neck W/Contr dated 07/28/2016; Head C Spine Mpr Wo Con dated 02/03/2016 TECHNIQUE: Axial 5 mm thick images of the head were obtained. Axial 2 mm thick images of the cervical spine were obtained with sagittal and coronal reconstruction images generated and reviewed. All CT scans are performed using dose optimization technique as appropriate and may include automated exposure control or mA/KV adjustment according to patient size. FINDINGS: CT HEAD WITHOUT CONTRAST: No acute hemorrhage, hydrocephalus or extra-axial collection is identified.No areas of brain edema or midline shift. The paranasal sinuses and mastoids are clear.The calvarium is intact. CT CERVICAL SPINE WITHOUT CONTRAST: No fracture or subluxation.Prominent multilevel degenerative changes are present. Areas of ligamentou s calcification noted.No prevertebral soft tissues swelling is identified. IMPRESSION: No acute intracranial or cervical spine findings.
--- NOTE | 2018-03-07 14:43 | RAD REPORT ---
EXAM DESCRIPTION: RAD - Hip Right 2 View - 03/07/2018 2:36 pm CLINICAL HISTORY: PAIN History of fall COMPARISON: Hip Right 2 View dated 11/13/2017; Hip Right 2 View dated 12/04/2015 FINDINGS: Hardware is present in the proximal right femur. Significant degenerative change involves the right hip joint. An acute fracture is not detected.
--- NOTE | 2018-03-07 14:43 | RAD REPORT ---
EXAM DESCRIPTION: RAD - Shoulder Right 2 View - 03/07/2018 2:36 pm CLINICAL HISTORY: PAIN History of fall COMPARISON: Shoulder Right 2 View dated 07/07/2017 FINDINGS: Prominent degenerative changes are present involving the glenohumeral joint. Chronic widen ing of the AC joint is seen. An acute fracture or dislocation of the right shoulder is not appreciate d.
--- NOTE | 2018-03-07 14:44 | RAD REPORT ---
EXAM DESCRIPTION: RAD - Knee Right 3 View - 03/07/2018 2:38 pm CLINICAL HISTORY: PAIN History of fall COMPARISON: Knee Right 3 View dated 03/03/2016; Knee Right 3 View dated 12/04/2015 FINDINGS: Right total knee arthroplasty is noted. No hardware complication evident. No acute fractur es seen. A small joint effusion is present. IMPRESSION: Small right knee joint effusion.
--- NOTE | 2018-03-07 14:45 | RAD REPORT ---
EXAM DESCRIPTION: RAD - Knee Left 3 View - 03/07/2018 2:36 pm CLINICAL HISTORY: PAIN History of fall COMPARISON: Knee Left 3 View dated 08/07/2017; Knee Left 3 View dated 04/20/2016 FINDINGS: Left total knee arthroplasty hardware is noted. The bones are mildly demineralized. No acu te fracture seen. No joint effusion evident.
--- NOTE | 2018-03-07 14:46 | RAD REPORT ---
EXAM DESCRIPTION: RAD - Ankle Right 3 View - 03/07/2018 2:36 pm CLINICAL HISTORY: PAIN History of fall COMPARISON: Ankle Left 3 View dated 04/21/2016 FINDINGS: Mild arthritic changes of the right ankle is present. Prominent posterior and plantar calc aneal spurs are seen. No acute fracture is evident.
--- NOTE | 2018-03-07 16:36 | ER ---
Nurse's Notes [facility] Name: Estephnaia Corrales Age: 72 yrs Sex: Female : 1945 Arrival Date: 03/07/2018 Time: 12:29 Bed 13 Private MD: Diagnosis: Rash and other nonspecific skin eruption;Other slipping, tripping and stumbling and falls;Contusion of right shoulder;Contusion of right hip;Contusion of right knee;Contusion of left knee;Sprain of other ligament of right ankle Presentation: 03/07 12:32 Presenting complaint: Patient states: fell out of car 3 days ago, fell on right side, iw c/o pain to right shoulder, right chest wall, + hit head, no LOC, then this morning woke up with headache and itchiness to her face, redness and swelling noted to face, bruising to right arm. Transition of care: patient was not received from another setting of care. Onset of symptoms was March 04, 2018. Risk Assessment: Do you want to hurt yourself or someone else? Patient reports no desire to harm self or others. Initial Sepsis Screen: Does the patient meet any 2 criteria? No. Patient's initial sepsis screen is negative. Does the patient have a suspected source of infection? No. Patient's initial sepsis screen is negative. Care prior to arrival: None. 12:32 Method Of Arrival: Ambulatory iw 12:32 Acuity: PALMIRA 3 iw Triage Assessment: 13:13 General: Appears in no apparent distress. uncomfortable, Behavior is cooperative, hj appropriate for age, anxious, crying. Pain: Complains of pain in face. Historical: - Allergies: 12:36 No Known Allergies; iw - Home Meds: 12:36 carvedilol 25 mg Oral tab [Active]; celecoxib 200 mg Oral cap 1 cap once daily iw [Active]; cyclobenzaprine 5 mg Oral tab 1 tab 2 times daily [Active]; esomeprazole magnesium 20 mg Oral cpDR 1 cap once daily [Active]; Janumet XR 50-1,000 mg Oral TM24 1 tab BID [Active]; Lyrica 75mg Oral 1 cap 3 times per day [Active]; montelukast 10 mg Oral tab 1 tab once daily [Active]; - PMHx: 12:36 Chronic pain; Diabetes - IDDM; Herniated disc; High Cholesterol; Hypertension; iw - PSHx: 12:36 right hip; elisa knees; Appendectomy; Cholecystectomy; iw - Immunization history:: Adult Immunizations not up to date. - Social history:: Smoking status: Patient/guardian denies using tobacco. - Ebola Screening: : Patient negative for fever greater than or equal to 101.5 degrees Fahrenheit, and additional compatible Ebola Virus Disease symptoms Patient denies exposure to infectious person Patient denies travel to an Ebola-affected area in the 21 days before illness onset No symptoms or risks identified at this time. Screenin:13 Abuse screen: Denies threats or abuse. Denies injuries from another. Nutritional hj screening: No deficits noted. Tuberculosis screening: No symptoms or risk factors identified. Fall Risk Fall in past 12 months (25 points). Assessment: 13:14 General: Appears in no apparent distress. uncomfortable, Behavior is calm, cooperative, hj appropriate for age. Pain: Complains of pain in head, face, R shoulder, R chest area. Neuro: Level of Consciousness is awake, alert, obeys commands, Oriented to person, place, time, situation, Appropriate for age. Cardiovascular: Capillary refill < 3 seconds Patient's skin is warm and dry. Respiratory: Airway is patent Respiratory effort is even, unlabored, Respiratory pattern is regular, symmetrical. GI: No signs and/or symptoms were reported involving the gastrointestinal system. : No signs and/or symptoms were reported regarding the genitourinary system. EENT: No signs and/or symptoms were reported regarding the EENT system. Derm: No signs and/or symptoms reported regarding the dermatologic system. Musculoskeletal: Reports pain in face, head, R shoulder, R chest area. 15:15 Reassessment: Patient and/or family updated on plan of care and expected duration. Pain tl3 level reassessed. Patient is alert, oriented x 3, equal unlabored respirations, skin warm/dry/pink. pt has no needs at this time. 17:00 Reassessment: Patient appears in no apparent distress at this time. No changes from tl3 previously documented assessment. Patient and/or family updated on plan of care and expected duration. Pain level reassessed. Patient is alert, oriented x 3, equal unlabored respirations, skin warm/dry/pink. Vital Signs: 12:36 BP 135 / 80; Pulse 90; Resp 16; Temp 99.0(TE); Pulse Ox 100% on R/A; Weight 69.4 kg; iw Height 5 ft. 3 in. (160.02 cm); Pain 10/10; 15:15 Pulse 82; Resp 18; Pulse Ox 100% on R/A; tl3 17:00 BP 147 / 67; Pulse 81; Resp 18; Pulse Ox 100% on R/A; tl3 12:36 Body Mass Index 27.10 (69.40 kg, 160.02 cm) iw ED Course: 12:29 Patient arrived in ED. sb2 12:35 Triage completed. iw 12:36 Arm band placed on. iw 12:56 Aba Stallworth NP is PHCP. pm1 12:56 Anson Lock MD is Attending Physician. pm1 13:13 Turner Khan, RN is Primary Nurse. hj 13:14 Patient has correct armband on for positive identification. Bed in low position. Call hj light in reach. Side rails up X 1. Adult w/ patient. 13:53 CT Head C Spine In Process Unspecified. EDMS 14:36 Shoulder Right (2 View) XRAY In Process Unspecified. EDMS 14:37 Knee Right 3 View XRAY In Process Unspecified. EDMS 14:37 Knee Left 3 View XRAY In Process Unspecified. EDMS 14:37 Ankle Right 3 View XRAY In Process Unspecified. EDMS 14:37 Hip Right 2 View XRAY In Process Unspecified. EDMS 15:15 Primary Nurse role handed off by Turner Khan, RN tl3 15:15 Su Casillas, CLAIR is Primary Nurse. tl3 17:00 No provider procedures requiring assistance completed. Patient did not have IV access tl3 during this emergency room visit. Administered Medications: 14:58 Drug: Pepcid 20 mg Route: PO; hj 15:18 Follow up: Response: No adverse reaction tl3 14:58 Drug: Benadryl 25 mg Route: PO; hj 15:18 Follow up: Response: No adverse reaction tl3 14:58 Drug: predniSONE 40 mg Route: PO; hj 15:17 Follow up: Response: No adverse reaction tl3 17:00 Drug: traMADol 50 mg Route: PO; tl3 17:00 Follow up: Response: Medication administered at discharge. tl3 Outcome: 16:36 Discharge ordered by . pm1 17:00 Discharged to home ambulatory. tl3 17:00 Condition: stable 17:00 Discharge instructions given to patient, Instructed on discharge instructions, follow up and referral plans. medication usage, Demonstrated understanding of instructions, follow-up care, medications, Prescriptions given X 3. 17:02 Patient left the ED. tl3 Signatures: Dispatcher [employer] EDMarissa Starr RN RN iw Turner Khan RN CLAIR hj Aba Stallworth, [facility] pm1 Benita Iqbal sb2 Su Casillas, CLAIR RN tl3 Corrections: (The following items were deleted from the chart) 12:38 12:36 BP 135 / 80; Pulse 90bpm; Resp 16bpm; Pulse Ox 100% RA; Temp 98.2F; 69.4 kg; iw Height 5 ft. 3 in.; BMI: 27.1; Pain 10/10; iw
--- NOTE | 2018-03-07 16:37 | EDPHYS ---
Physician Documentation [facility] Name: Estephania Corrales Age: 72 yrs Sex: Female : 1945 Arrival Date: 03/07/2018 Time: 12:29 Bed 13 Private MD: RYLEE Physician Anson Lock HPI: 03/07 15:00 This 72 yrs old Female presents to ER via Ambulatory with complaints of Facial pm1 rash and Fall injury. 15:00 Onset: The symptoms/episode began/occurred Patient with fall 3 days ago and rash to pm1 face onset this AM. Patient was stepping out of her car and tripped on curb. Patient fell against the vehicle on her right side and then fell to the ground. Patient hit her head without any LOC, nausea or vomiting. Also complaining of right shoulder pain, right hip pain, right ankle pain, and bilateral knee pain. This AM she woke up with a red itchy rash to the left and right cheeks and bridge of her nose. Historical: - Allergies: 12:36 No Known Allergies; iw - Home Meds: 12:36 carvedilol 25 mg Oral tab [Active]; celecoxib 200 mg Oral cap 1 cap once daily iw [Active]; cyclobenzaprine 5 mg Oral tab 1 tab 2 times daily [Active]; esomeprazole magnesium 20 mg Oral cpDR 1 cap once daily [Active]; Janumet XR 50-1,000 mg Oral TM24 1 tab BID [Active]; Lyrica 75mg Oral 1 cap 3 times per day [Active]; montelukast 10 mg Oral tab 1 tab once daily [Active]; - PMHx: 12:36 Chronic pain; Diabetes - IDDM; Herniated disc; High Cholesterol; Hypertension; iw - PSHx: 12:36 right hip; elisa knees; Appendectomy; Cholecystectomy; iw - Immunization history:: Adult Immunizations not up to date. - Social history:: Smoking status: Patient/guardian denies using tobacco. - Ebola Screening: : Patient negative for fever greater than or equal to 101.5 degrees Fahrenheit, and additional compatible Ebola Virus Disease symptoms Patient denies exposure to infectious person Patient denies travel to an Ebola-affected area in the 21 days before illness onset No symptoms or risks identified at this time. ROS: 15:00 Constitutional: Negative for fever, chills, and weight loss, Eyes: Negative for injury, pm1 pain, redness, and discharge, ENT: Negative for injury, pain, and discharge, Neck: Negative for injury, pain, and swelling, Cardiovascular: Negative for chest pain, palpitations, and edema, Respiratory: Negative for shortness of breath, cough, wheezing, and pleuritic chest pain, Abdomen/GI: Negative for abdominal pain, nausea, vomiting, diarrhea, and constipation. 15:00 Back: Negative for injury and pain. 15:00 Neuro: Negative for headache, weakness, numbness, tingling, and seizure. 15:00 MS/extremity: Positive for pain, of the right knee, left knee, right shoulder, right hip, and right ankle. 15:00 Skin: Positive for rash, of the face. Exam: 15:00 Constitutional: This is a well developed, well nourished patient who is awake, alert, pm1 and in no acute distress. Head/Face: Normocephalic, atraumatic. Eyes: Pupils equal round and reactive to light, extra-ocular motions intact. Lids and lashes normal. Conjunctiva and sclera are non-icteric and not injected. Cornea within normal limits. Periorbital areas with no swelling, redness, or edema. ENT: Nares patent. No nasal discharge, no septal abnormalities noted. Tympanic membranes are normal and external auditory canals are clear. Oropharynx with no redness, swelling, or masses, exudates, or evidence of obstruction, uvula midline. Mucous membranes moist. Neck: Trachea midline, no thyromegaly or masses palpated, and no cervical lymphadenopathy. Supple, full range of motion without nuchal rigidity, or vertebral point tenderness. No Meningismus. Chest/axilla: Normal chest wall appearance and motion. Nontender with no deformity. No lesions are appreciated. Cardiovascular: Regular rate and rhythm with a normal S1 and S2. No gallops, murmurs, or rubs. Normal PMI, no JVD. No pulse deficits. Respiratory: Lungs have equal breath sounds bilaterally, clear to auscultation and percussion. No rales, rhonchi or wheezes noted. No increased work of breathing, no retractions or nasal flaring. Abdomen/GI: Soft, non-tender, with normal bowel sounds. No distension or tympany. No guarding or rebound. No evidence of tenderness throughout. Back: No spinal tenderness. No costovertebral tenderness. Full range of motion. 15:00 Musculoskeletal/extremity: Extremities: grossly normal except: noted in the right shoulder, right knee, left knee, right hip and right ankle: tenderness, There is no evidence of decreased ROM, deformity. 15:00 Skin: Appearance: normal except for affected area, consistent with urticaria, on the right cheek, bridge of nose and left cheek. Vital Signs: 12:36 BP 135 / 80; Pulse 90; Resp 16; Temp 99.0(TE); Pulse Ox 100% on R/A; Weight 69.4 kg; iw Height 5 ft. 3 in. (160.02 cm); Pain 10/10; 15:15 Pulse 82; Resp 18; Pulse Ox 100% on R/A; tl3 17:00 BP 147 / 67; Pulse 81; Resp 18; Pulse Ox 100% on R/A; tl3 12:36 Body Mass Index 27.10 (69.40 kg, 160.02 cm) iw MDM: 12:56 Patient medically screened. [facility] 15:41 Data reviewed: vital signs. Data interpreted: Pulse oximetry: on room air is 100 %. pm1 Interpretation: normal. Counseling: I had a detailed discussion with the patient and/or guardian regarding: the historical points, exam findings, and any diagnostic results supporting the discharge/admit diagnosis, radiology results, the need for outpatient follow up, to return to the emergency department if symptoms worsen or persist or if there are any questions or concerns that arise at home. 03/07 13:41 Order name: CT Head C Spine; Complete Time: 14:48 pm1 03/07 13:41 Order name: Shoulder Right (2 View) XRAY; Complete Time: 14:48 pm1 03/07 13:41 Order name: Knee Right 3 View XRAY; Complete Time: 14:48 pm1 03/07 13:41 Order name: Knee Left 3 View XRAY; Complete Time: 14:48 pm1 03/07 13:41 Order name: Ankle Right 3 View XRAY; Complete Time: 14:48 pm1 03/07 13:41 Order name: Hip Right 2 View XRAY; Complete Time: 14:48 pm1 03/07 16:42 Order name: Madi wrap-joint; Complete Time: 16:47 pm1 Administered Medications: 14:58 Drug: Pepcid 20 mg Route: PO; hj 15:18 Follow up: Response: No adverse reaction tl3 14:58 Drug: Benadryl 25 mg Route: PO; hj 15:18 Follow up: Response: No adverse reaction tl3 14:58 Drug: predniSONE 40 mg Route: PO; hj 15:17 Follow up: Response: No adverse reaction tl3 17:00 Drug: traMADol 50 mg Route: PO; tl3 17:00 Follow up: Response: Medication administered at discharge. tl3 Disposition: 03/08 07:16 Co-signature as Attending Physician, Anson Lock MD I agree with the assessment and estevan plan of care. Disposition: 03/07/18 16:36 Discharged to Home. Impression: Rash and other nonspecific skin eruption, Other slipping, tripping and stumbling and falls, Contusion of right shoulder, Contusion of right hip, Contusion of right knee, Contusion of left knee, Sprain of other ligament of right ankle. - Condition is Stable. - Discharge Instructions: Ankle Sprain, Contusion, Rash, Shoulder Pain, Knee Pain. - Prescriptions for Vistaril 25 mg Oral capsule - take 1 capsule by ORAL route 4 times per day As needed; 30 capsule. Pepcid 20 mg Oral Tablet - take 1 tablet by ORAL route every 12 hours for 10 days; 20 tablet. Prednisone 20 mg Oral Tablet - take 2 tablet by ORAL route once daily for 5 days; 10 tablet. Tramadol 50 mg Oral Tablet - take 1 tablet by ORAL route every 8 hours as needed; 12 tablet. - Medication Reconciliation Form, Thank You Letter, Antibiotic Education, Prescription Opioid Use form. - Follow up: Emergency Department; When: As needed; Reason: Worsening of condition. Follow up: Private Physician; When: 2 - 3 days; Reason: Recheck today's complaints, Continuance of care, Re-evaluation by your physician. - Problem is new. - Symptoms have improved. Signatures: Dispatcher [employer] EDAnson Burt MD MD cha Williams, Irene RN CLAIR Turner Khan RN RN hj Marinas, Patrick, [facility] [employer]INATOR pm1 Su Casillas RN RN tl3 Corrections: (The following items were deleted from the chart) 03/07 16:36 16:36 03/07/2018 16:36 Discharged to Home. Impression: Rash and other nonspecific skin pm1 eruption; Other slipping, tripping and stumbling and falls; Contusion of right shoulder; Contusion of right hip; Contusion of right knee; Contusion of left knee. Condition is Stable. Forms are Medication Reconciliation Form, Thank You Letter, Antibiotic Education, Prescription Opioid Use. Follow up: Emergency Department; When: As needed; Reason: Worsening of condition. Follow up: Private Physician; When: 2 - 3 days; Reason: Recheck today's complaints, Continuance of care, Re-evaluation by your physician. Problem is new. Symptoms have improved. pm1 17:02 16:36 03/07/2018 16:36 Discharged to Home. Impression: Rash and other nonspecific skin tl3 eruption; Other slipping, tripping and stumbling and falls; Contusion of right shoulder; Contusion of right hip; Contusion of right knee; Contusion of left knee; Sprain of other ligament of right ankle. Condition is Stable. Forms are Medication Reconciliation Form, Thank You Letter, Antibiotic Education, Prescription Opioid Use. Follow up: Emergency Department; When: As needed; Reason: Worsening of condition. Follow up: Private Physician; When: 2 - 3 days; Reason: Recheck today's complaints, Continuance of care, Re-evaluation by your physician. Problem is new. Symptoms have improved. pm1
[2018-03-07] MEDS ORDERED: TRAMADOL HCL 50 MG TAB ONE (16:58)
[2018-03-07 17:06] VITALS: TEMP 99; O2SAT 100
[2018-03-07 17:09] VITALS: BP 147/67
== END 2018-03-07 17:02 | disposition home or self-care (01) ==
LOC: ER 12:23
DX: S40.011A Contusion of right shoulder, initial encounter (principal); S70.01XA Contusion of right hip, initial encounter; S80.02XA Contusion of left knee, initial encounter; S80.01XA Contusion of right knee, initial encounter; S93.401A Sprain of unspecified ligament of right ankle, initial encounter; W01.198A Fall on same level from slipping, tripping and stumbling with subsequent striking against other object, initial encounter; R21 Rash and other nonspecific skin eruption; M25.461 Effusion, right knee; E11.9 Type 2 diabetes mellitus without complications; E78.00 Pure hypercholesterolemia, unspecified; G89.29 Other chronic pain; Z79.84 Long term (current) use of oral hypoglycemic drugs; Z79.899 Other long term (current) drug therapy; Z96.653 Presence of artificial knee joint, bilateral
CPT/HCPCS: 70450; 72125; 99283; J7512

== ENCOUNTER 2018-03-30 16:26 | Emergency (ER) | payer OTHER ==
--- OUTSIDE RECORDS SUMMARY | 2018-03-30 16:28 | XMS REPORT ---
:1945 [facility] Address [address] [place] [address] Dr. Nicholas. [address] [place] [address] Care Team Providers Name Role Phone Unavailable Unavailable Unavailable Problems This patient has no known problems. Allergies, Adverse Reactions, Alerts This patient has no known allergies or adverse reactions. Medications This patient has no known medications.
[2018-03-30] MEDS ORDERED: KETOROLAC 30 MG/ML INJ ONE (17:28)
[2018-03-30] MEDS ORDERED: DIAZEPAM 2 MG TABLET ONE (17:28)
--- NOTE | 2018-03-30 17:58 | RAD REPORT ---
EXAM DESCRIPTION: RAD - Shoulder Left 2 View - 03/30/2018 5:34 pm CLINICAL HISTORY: Nontraumatic left shoulder pain COMPARISON: June 2017 TECHNIQUE: Internal and external rotation views of the left shoulder were obtained. FINDINGS: No fracture or dislocation of the proximal humerus. Degenerative changes are present along the superolateral humeral head similar to comparison. Patient has prominent AC joint degenerative ch gomez with inferiorly directed spurring from both clavicle and acromion. There is capsular hypertrophy and calcification along the superior margin. Acromial humeral joint space is normal. Spurring seen a long the articular margins of the acromion. IMPRESSION: Prominent left shoulder degenerative change as detailed. No acute findings seen.
--- NOTE | 2018-03-30 18:18 | EDPHYS ---
Physician Documentation [facility] Name: Estephania Corrales Age: 72 yrs Sex: Female : 1945 Arrival Date: 03/30/2018 Time: 16:29 Bed 8 Private MD: OSIEL CORLEY ED Physician Jean-Pierre Edwards HPI: 03/30 16:49 This 72 yrs old Female presents to ER via Ambulatory with complaints of ma2 Shoulder Pain. 16:49 The patient or guardian complains of decreased range of motion, pain. left shoulder. ma2 Onset: The symptoms/episode began/occurred gradually, 2 day(s) ago. Associated signs and symptoms: Pertinent positives:. Severity of symptoms: At their worst the symptoms were moderate, in the emergency department the symptoms are unchanged. The patient has experienced similar episodes in the past. Historical: - Allergies: 16:32 No Known Drug Allergies; tw2 - Home Meds: 16:32 carvedilol 25 mg Oral tab [Active]; celecoxib 200 mg Oral cap 1 cap once daily tw2 [Active]; esomeprazole magnesium 20 mg Oral cpDR 1 cap once daily [Active]; Janumet XR 50-1,000 mg Oral TM24 1 tab BID [Active]; Lyrica 75mg Oral 1 cap 3 times per day [Active]; montelukast 10 mg Oral tab 1 tab once daily [Active]; - PMHx: 16:32 Chronic pain; Diabetes - IDDM; Herniated disc; High Cholesterol; Hypertension; tw2 - PSHx: 16:32 right hip; elisa knees; Appendectomy; Cholecystectomy; tw2 - Immunization history:: Adult Immunizations. - Social history:: Smoking status: Patient/guardian denies using alcohol, street drugs, The patient lives with family. - Ebola Screening: : Patient denies travel to an Ebola-affected area in the 21 days before illness onset. - Family history:: not pertinent. - Hospitalizations: : No recent hospitalization is reported. ROS: 16:49 Constitutional: Negative for fever, chills, and weight loss, Cardiovascular: Negative ma2 for chest pain, palpitations, and edema, Respiratory: Negative for shortness of breath, cough, wheezing, and pleuritic chest pain, Abdomen/GI: Negative for abdominal pain, nausea, diarrhea, and constipation, Back: Negative for injury and pain, : Negative for injury, bleeding, discharge, and swelling, Neuro: Negative for headache, weakness, numbness, tingling, and seizure, Psych: Negative for depression, anxiety, suicide ideation, homicidal ideation, and hallucinations. 16:49 MS/extremity: Positive for pain, Negative for acute changes, ecchymosis, erythema, swelling. 16:49 All other systems are negative. Exam: 16:49 Constitutional: This is a well developed, well nourished patient who is awake, alert, ma2 and in no acute distress. Chest/axilla: Normal chest wall appearance and motion. Nontender with no deformity. No lesions are appreciated. Cardiovascular: Regular rate and rhythm with a normal S1 and S2. No gallops, murmurs, or rubs. Normal PMI, no JVD. No pulse deficits. Respiratory: Lungs have equal breath sounds bilaterally, clear to auscultation and percussion. No rales, rhonchi or wheezes noted. No increased work of breathing, no retractions or nasal flaring. Abdomen/GI: Soft, non-tender, with normal bowel sounds. No distension or tympany. No guarding or rebound. No evidence of tenderness throughout. Skin: Warm, dry with normal turgor. Normal color with no rashes, no lesions, and no evidence of cellulitis. Neuro: Awake and alert, GCS 15, oriented to person, place, time, and situation. Cranial nerves II-XII grossly intact. Motor strength 5/5 in all extremities. Sensory grossly intact. Cerebellar exam normal. Normal gait. 16:49 Musculoskeletal/extremity: ROM: limited passive range of motion, left shoulder limited rom and muscle tenderness over biceps and trapizius, no joint effusion, , Pulses: are normal with no appreciated deficits, Sensation intact. Compartment Syndrome exam of affected extremity: is normal. Vital Signs: 16:32 BP 154 / 66; Pulse 74; Resp 18; Temp 97.6(O); Pulse Ox 100% on R/A; Weight 69.4 kg (R); tw2 Height 5 ft. 3 in. (160.02 cm); Pain 10/10; 16:32 Body Mass Index 27.10 (69.40 kg, 160.02 cm) tw2 MDM: 16:33 Patient medically screened. ma2 16:49 Differential diagnosis: humeral head fracture, glenoid fracture, DJD, tendonitis. ma2 18:16 Data reviewed: vital signs, nurses notes. Counseling: I had a detailed discussion with maRedd the patient and/or guardian regarding: the historical points, exam findings, and any diagnostic results supporting the discharge/admit diagnosis, the presence of at least one elevated blood pressure reading (>120/80) during this emergency department visit. Response to treatment: the patient's symptoms have markedly improved after treatment. 03/30 16:49 Order name: Shoulder Left (2 View) XRAY; Complete Time: 18:11 me2 03/30 16:52 Order name: Arm-Sling; Complete Time: 17:35 me2 Administered Medications: 17:25 Drug: Valium 2 mg Route: PO; jl7 18:27 Follow up: Response: Pain is decreased aj 17:26 Drug: TORadol 60 mg Route: IM; Site: left ventrogluteal; jl7 18:27 Follow up: Response: Pain is decreased aj Disposition: 03/30/18 18:17 Discharged to Home. Impression: Strain of muscle, fascia and tendon of long head of biceps. - Condition is Stable. - Discharge Instructions: Arthritis, Muscle Pain, Adult. - Prescriptions for Tylenol- Codeine #3 300-30 mg Oral Tablet - take 2 tablet by ORAL route every 6 hours As needed; 30 tablet. Cyclobenzaprine 5 mg Oral Tablet - take 1 tablet by ORAL route 3 times per day As needed; 15 tablet. - Medication Reconciliation Form, Thank You Letter, Antibiotic Education, Prescription Opioid Use form. - Follow up: Private Physician; When: Tomorrow; Reason: Continuance of care. Signatures: Dispatcher [employer] Brenna Parks RN RN aj Wise, Tara, RN RN tw2 Jose Angel Montoya RN RN jl7 Jean-Pierre Edwards MD MD ma2 Corrections: (The following items were deleted from the chart) 18:28 18:17 03/30/2018 18:17 Discharged to Home. Impression: Strain of muscle, fascia and aj tendon of long head of biceps. Condition is Stable. Forms are Medication Reconciliation Form, Thank You Letter, Antibiotic Education, Prescription Opioid Use. Follow up: Private Physician; When: Tomorrow; Reason: Continuance of care. ma2
--- NOTE | 2018-03-30 18:18 | ER ---
Nurse's Notes [facility] Name: Estephania Corrales Age: 72 yrs Sex: Female : 1945 Arrival Date: 03/30/2018 Time: 16:29 Bed 8 Private MD: OSIEL CORLEY Diagnosis: Strain of muscle, fascia and tendon of long head of biceps Presentation: 03/30 16:30 Presenting complaint: Patient states: my LEFT shoulder hurts, i woke up like that this tw2 morning and it was hurting, denies fall/trauma. Transition of care: patient was not received from another setting of care. Onset of symptoms was March 30, 2018. Risk Assessment: Do you want to hurt yourself or someone else? Patient reports no desire to harm self or others. Initial Sepsis Screen: Does the patient meet any 2 criteria? No. Patient's initial sepsis screen is negative. Does the patient have a suspected source of infection? No. Patient's initial sepsis screen is negative. Care prior to arrival: None. 16:30 Method Of Arrival: Ambulatory tw2 16:30 Acuity: PALM[place] 4 tw2 Triage Assessment: 16:30 General: Appears in no apparent distress. Behavior is calm, cooperative, appropriate tw2 for age. Pain: Complains of pain in left shoulder. Historical: - Allergies: 16:32 No Known Drug Allergies; tw2 - Home Meds: 16:32 carvedilol 25 mg Oral tab [Active]; celecoxib 200 mg Oral cap 1 cap once daily tw2 [Active]; esomeprazole magnesium 20 mg Oral cpDR 1 cap once daily [Active]; Janumet XR 50-1,000 mg Oral TM24 1 tab BID [Active]; Lyrica 75mg Oral 1 cap 3 times per day [Active]; montelukast 10 mg Oral tab 1 tab once daily [Active]; - PMHx: 16:32 Chronic pain; Diabetes - IDDM; Herniated disc; High Cholesterol; Hypertension; tw2 - PSHx: 16:32 right hip; elisa knees; Appendectomy; Cholecystectomy; tw2 - Immunization history:: Adult Immunizations. - Social history:: Smoking status: Patient/guardian denies using alcohol, street drugs, The patient lives with family. - Ebola Screening: : Patient denies travel to an Ebola-affected area in the 21 days before illness onset. - Family history:: not pertinent. - Hospitalizations: : No recent hospitalization is reported. Screenin:45 Abuse screen: Denies threats or abuse. Denies injuries from another. Nutritional jl7 screening: No deficits noted. Tuberculosis screening: No symptoms or risk factors identified. Fall Risk None identified. Assessment: 16:45 General: Appears in no apparent distress. uncomfortable, Behavior is cooperative, jl7 anxious. Pain: Complains of pain in left shoulder Pain currently is 10 out of 10 on a pain scale. Neuro: Level of Consciousness is awake, alert, obeys commands, Oriented to person, place, time, situation. Cardiovascular: Patient's skin is warm and dry. Respiratory: Airway is patent Respiratory effort is even, unlabored, Respiratory pattern is regular, symmetrical. Derm: Skin is pink, warm \T\ dry. Musculoskeletal: Range of motion: limited in left shoulder. Vital Signs: 16:32 BP 154 / 66; Pulse 74; Resp 18; Temp 97.6(O); Pulse Ox 100% on R/A; Weight 69.4 kg (R); tw2 Height 5 ft. 3 in. (160.02 cm); Pain 10/10; 16:32 Body Mass Index 27.10 (69.40 kg, 160.02 cm) tw2 ED Course: 16:29 Patient arrived in ED. sb2 16:29 OSIEL CORLEY is Private Physician. sb2 16:30 Triage completed. tw2 16:30 Arm band placed on. tw2 16:32 Jean-Pierre Edwards MD is Attending Physician. ma2 16:33 Jose Angel Montoya RN is Primary Nurse. jl7 16:45 Patient has correct armband on for positive identification. Placed in gown. Bed in low jl7 position. Call light in reach. Side rails up X 1. Pulse ox on. NIBP on. 17:35 Shoulder Left (2 View) XRAY In Process Unspecified. EDMS 18:26 No provider procedures requiring assistance completed. Patient did not have IV access aj during this emergency room visit. Sling applied to left arm. Administered Medications: 17:25 Drug: Valium 2 mg Route: PO; jl7 18:27 Follow up: Response: Pain is decreased aj 17:26 Drug: TORadol 60 mg Route: IM; Site: left ventrogluteal; jl7 18:27 Follow up: Response: Pain is decreased tomasa Outcome: 18:17 Discharge ordered by . winston 18:26 Discharged to home ambulatory. tomasa 18:26 Condition: good 18:26 Discharge instructions given to patient, Instructed on discharge instructions, follow up and referral plans. medication usage, Demonstrated understanding of instructions, follow-up care, medications, Prescriptions given X 2. 18:28 Patient left the ED. aj Signatures: Dispatcher [employer] EDBrenna Abrams RN RN aj Wise, Tara, RN RN tw2 Jose Angel Montoya RN RN jl7 Jean-Pierre Edwards MD MD ma2 Billeau, Sheri sb2
[2018-03-30 19:10] VITALS: BP 154/66; TEMP 97.6; O2SAT 100
== END 2018-03-30 18:28 | disposition home or self-care (01) ==
LOC: ER 16:26
DX: S46.112A Strain of muscle, fascia and tendon of long head of biceps, left arm, initial encounter (principal); I10 Essential (primary) hypertension; E11.9 Type 2 diabetes mellitus without complications; E78.00 Pure hypercholesterolemia, unspecified
CPT/HCPCS: 96372; 99284

== ENCOUNTER 2018-08-04 19:42 | Emergency (ER) | payer OTHER ==
--- OUTSIDE RECORDS SUMMARY | 2018-08-04 19:44 | XMS REPORT ---
:1945 [facility] Address [address] [place] [address] Dr. Nicholas. [address] [place] [id number] Care Team Providers Name Role Phone Unavailable Unavailable Unavailable Problems This patient has no known problems. Allergies, Adverse Reactions, Alerts This patient has no known allergies or adverse reactions. Medications This patient has no known medications.
--- NOTE | 2018-08-04 20:51 | RAD REPORT ---
EXAM DESCRIPTION: Isha Single View08/04/2018 8:24 pm CLINICAL HISTORY: cough COMPARISON: 2018 FINDINGS: The lungs appear clear of acute infiltrate. The heart is normal size IMPRESSION: No acute abnormalities displayed
[2018-08-04 20:55] LABS: Absolute Lymphocytes (CBC) 1.2 K/uL (0.7-4.9); Absolute Monocytes 0.8 K/uL (0.1-1.3); Absolute Neutrophil 4.3 K/uL (1.8-8.0); Basophils % 0.8 % (0-1.3); Eosinophils % 1.9 % (0-4.4); Hematocrit 38.6 % (36.0-45.0); Lymphocytes % 18.7 % (15.3-44.8); MPV 8.8 fL (7.6-11.3); Monocytes % 12.2 % (3.3-12.3); RBC Red Blood Cell Count 4.47 M/uL (3.86-4.86)
[2018-08-04 20:59] LABS: Protime INR 1.02
[2018-08-04 21:11] LABS: ALT/SGPT 28 U/L (12-78); AST/SGOT 28 U/L (15-37); Albumin 3.8 g/dL (3.4-5.0); Alkaline Phosphatase 107 U/L (45-117); BUN Blood Urea Nitrogen 14 mg/dL (7-18); Bicarbonate 28 mmol/L (21-32); Bilirubin Direct 0.1 mg/dL (0-0.2); Bilirubin Total 0.3 mg/dL (0.2-1.0); CKMB Creatine Kinase MB 1.2 ng/mL (0.3-3.6); Creatine Phosphokinase 64 U/L (26-192); Glucose Level 124 mg/dL (74-106); Lipase 117 U/L (73-393); Magnesium 1.9 mg/dL (1.8-2.4); NT PRO-BNP 153 pg/mL (<125); Potassium 3.7 mmol/L (3.5-5.1); Sodium Level 142 mmol/L (136-145); Troponin (Emerg Dept Use Only) < 0.02 ng/mL (0.0-0.045)
--- NOTE | 2018-08-04 23:41 | ER ---
Nurse's Notes [facility] Name: Estephania Corrales Age: 72 yrs Sex: Female : 1945 Arrival Date: 08/04/2018 Time: 19:46 Bed 30 Private MD: OSIEL CORLEY Diagnosis: Simple chronic bronchitis Presentation: 08/04 19:48 Presenting complaint: Patient states: About a week ago I started to not feel well. I ed1 saw my doctor and they gave me medicine but it doesn't work but they told me to come here because it might be something else. Transition of care: patient was not received from another setting of care. Onset of symptoms was July 28, 2018. Risk Assessment: Do you want to hurt yourself or someone else? Patient reports no desire to harm self or others. Initial Sepsis Screen: Does the patient meet any 2 criteria? No. Patient's initial sepsis screen is negative. Does the patient have a suspected source of infection? No. Patient's initial sepsis screen is negative. Care prior to arrival: None. 19:48 Method Of Arrival: Ambulatory ed1 19:48 Acuity: PALMIR[place] 3 ed1 Triage Assessment: 19:51 General: Appears uncomfortable, Behavior is calm, cooperative. Pain: Complains of pain ed1 in chest Pain radiates to back Pain currently is 10 out of 10 on a pain scale. Cardiovascular: Reports chest pain, worse with coughing Heart tones S1 S2 present. Respiratory: Reports cough that is. Historical: - Allergies: 19:51 No Known Allergies; ed1 - Home Meds: 19:51 carvedilol 25 mg Oral tab [Active]; Lyrica 75mg Oral 1 cap 3 times per day [Active]; ed1 celecoxib 200 mg Oral cap 1 cap once daily [Active]; esomeprazole magnesium 20 mg Oral cpDR 1 cap once daily [Active]; Janumet XR 50-1,000 mg Oral TM24 1 tab BID [Active]; montelukast 10 mg Oral tab 1 tab once daily [Active]; - PMHx: 19:51 Chronic pain; Diabetes - IDDM; Herniated disc; High Cholesterol; Hypertension; ed1 - PSHx: 19:51 right hip; elisa knees; Appendectomy; Cholecystectomy; ed1 - Immunization history:: Adult Immunizations up to date, Flu vaccine is not up to date. - Social history:: Smoking status: Patient/guardian denies using tobacco. - Ebola Screening: : Patient negative for fever greater than or equal to 101.5 degrees Fahrenheit, and additional compatible Ebola Virus Disease symptoms Patient denies exposure to infectious person Patient denies travel to an Ebola-affected area in the 21 days before illness onset No symptoms or risks identified at this time. Screenin:42 Abuse screen: Denies threats or abuse. Denies injuries from another. Nutritional mg2 screening: No deficits noted. Tuberculosis screening: No symptoms or risk factors identified. Fall Risk IV access (20 points). Assessment: 20:43 Reassessment: pls see triage assessment. mg2 22:24 Pain: Pain began 1 week now. mg2 23:55 Reassessment: Patient states feeling better. mg2 Vital Signs: 19:51 BP 114 / 61; Pulse 105; Resp 18; Temp 98.4; Pulse Ox 94% on R/A; Weight 69.4 kg; Height ed1 5 ft. 3 in. (160.02 cm); Pain 10/10; 20:43 BP 100 / 42; Pulse 102; Resp 18; Pulse Ox 100% on R/A; mg2 21:22 BP 116 / 48; Pulse 92; Resp 18; Temp 98.5; Pulse Ox 100% on R/A; Pain 5/10; mg2 23:59 BP 133 / 80; Pulse 89; Resp 18; Temp 98.5; Pulse Ox 100% on R/A; Pain 2/10; mg2 19:51 Body Mass Index 27.10 (69.40 kg, 160.02 cm) ed1 ED Course: 19:46 Patient arrived in ED. mr 19:46 OSIEL CORLEY is Private Physician. mr 19:49 Triage completed. ed1 19:51 Arm band placed on right wrist. ed1 19:57 David Dumont MD is Attending Physician. tw4 20:23 XRAY CXR (1 view) In Process Unspecified. EDMS 20:34 Sylvester Nicole, CLAIR is Primary Nurse. mg2 20:42 No provider procedures requiring assistance completed. Inserted saline lock: 20 gauge mg2 in right antecubital area, using aseptic technique. Blood collected. by RYLEE Atkins. Patient maintains SpO2 saturation greater than 95% on room air. 21:01 Notified ED physician of a critical lab result(s). d dimer of 1044. 21:09 Radiology exam delayed due to lab results not completed at this time. (BUN/Creatinine). nj 21:22 Patient has correct armband on for positive identification. Pulse ox on. NIBP on. mg2 21:44 CT completed. Patient tolerated procedure well. Patient moved to CT. Patient moved back ia from CT. 21:50 CT Chest For PE Angio In Process Unspecified. EDMS 23:40 OSIEL CORLEY is Referral Physician. tw4 08/05 00:00 IV discontinued, intact, bleeding controlled, No redness/swelling at site. Pressure mg2 dressing applied. Administered Medications: 08/04 23:45 Drug: Tussionex Pennkinetic ER 5 ml Route: PO; mg2 23:45 Follow up: Response: No adverse reaction; Medication administered at discharge. mg2 Outcome: 23:40 Discharge ordered by . tw4 08/05 00:00 Discharged to home ambulatory. mg2 Condition: stable Discharge instructions given to patient, Instructed on discharge instructions, follow up and referral plans. medication usage, Demonstrated understanding of instructions, follow-up care, medications, Prescriptions given X 1. 00:01 Patient left the ED. mg2 Signatures: Dispatcher [employer] EDCO Katja Khan Felicia, RN RN Zoey Hameed RN RN ed1 Tay Shipman Terrence, MD MD tw4 Sylvester Nicole RN RN mg2
--- NOTE | 2018-08-04 23:41 | EDPHYS ---
Physician Documentation [facility] Name: Estephania Corrales Age: 72 yrs Sex: Female : 1945 Arrival Date: 08/04/2018 Time: 19:46 Bed 30 Private MD: OSIEL CORLEY ED Physician David Dumont HPI: 08/04 20:10 This 72 yrs old Female presents to ER via Ambulatory with complaints of Cough, tw4 Chest Pain. 20:10 The patient or guardian reports cough, described as moderate. Onset: The tw4 symptoms/episode began/occurred last week. Severity of symptoms: At their worst the symptoms were moderate, in the emergency department the symptoms are unchanged. Modifying factors: The symptoms are alleviated by nothing, the symptoms are aggravated by nothing. Associated signs and symptoms: Pertinent positives: earache, fever, Pertinent negatives: chest pain, diarrhea, rhinorrhea, sore throat, vomiting. The patient has not experienced similar symptoms in the past. Historical: - Allergies: 19:51 No Known Allergies; ed1 - Home Meds: 19:51 carvedilol 25 mg Oral tab [Active]; Lyrica 75mg Oral 1 cap 3 times per day [Active]; ed1 celecoxib 200 mg Oral cap 1 cap once daily [Active]; esomeprazole magnesium 20 mg Oral cpDR 1 cap once daily [Active]; Janumet XR 50-1,000 mg Oral TM24 1 tab BID [Active]; montelukast 10 mg Oral tab 1 tab once daily [Active]; - PMHx: 19:51 Chronic pain; Diabetes - IDDM; Herniated disc; High Cholesterol; Hypertension; ed1 - PSHx: 19:51 right hip; elisa knees; Appendectomy; Cholecystectomy; ed1 - Immunization history:: Adult Immunizations up to date, Flu vaccine is not up to date. - Social history:: Smoking status: Patient/guardian denies using tobacco. - Ebola Screening: : Patient negative for fever greater than or equal to 101.5 degrees Fahrenheit, and additional compatible Ebola Virus Disease symptoms Patient denies exposure to infectious person Patient denies travel to an Ebola-affected area in the 21 days before illness onset No symptoms or risks identified at this time. ROS: 20:10 Constitutional: Negative for fever, chills, and weight loss, Eyes: Negative for injury, tw4 pain, redness, and discharge, Cardiovascular: Negative for chest pain, palpitations, and edema, Respiratory: Negative for shortness of breath, cough, wheezing, and pleuritic chest pain, Abdomen/GI: Negative for abdominal pain, nausea, vomiting, diarrhea, and constipation, Back: Negative for injury and pain, MS/Extremity: Negative for injury and deformity, Skin: Negative for injury, rash, and discoloration. Exam: 20:10 Constitutional: This is a well developed, well nourished patient who is awake, alert, tw4 and in no acute distress. Head/Face: Normocephalic, atraumatic. Eyes: Pupils equal round and reactive to light, extra-ocular motions intact. Lids and lashes normal. Conjunctiva and sclera are non-icteric and not injected. Cornea within normal limits. Periorbital areas with no swelling, redness, or edema. Chest/axilla: Normal chest wall appearance and motion. Nontender with no deformity. No lesions are appreciated. Cardiovascular: Regular rate and rhythm with a normal S1 and S2. No gallops, murmurs, or rubs. Normal PMI, no JVD. No pulse deficits. Respiratory: Lungs have equal breath sounds bilaterally, clear to auscultation and percussion. No rales, rhonchi or wheezes noted. No increased work of breathing, no retractions or nasal flaring. Abdomen/GI: Soft, non-tender, with normal bowel sounds. No distension or tympany. No guarding or rebound. No evidence of tenderness throughout. Back: No spinal tenderness. No costovertebral tenderness. Full range of motion. MS/ Extremity: Pulses equal, no cyanosis. Neurovascular intact. Full, normal range of motion. Neuro: Awake and alert, GCS 15, oriented to person, place, time, and situation. Cranial nerves II-XII grossly intact. Motor strength 5/5 in all extremities. Sensory grossly intact. Cerebellar exam normal. Normal gait. Vital Signs: 19:51 BP 114 / 61; Pulse 105; Resp 18; Temp 98.4; Pulse Ox 94% on R/A; Weight 69.4 kg; Height ed1 5 ft. 3 in. (160.02 cm); Pain 10/10; 20:43 BP 100 / 42; Pulse 102; Resp 18; Pulse Ox 100% on R/A; mg2 21:22 BP 116 / 48; Pulse 92; Resp 18; Temp 98.5; Pulse Ox 100% on R/A; Pain 5/10; mg2 23:59 BP 133 / 80; Pulse 89; Resp 18; Temp 98.5; Pulse Ox 100% on R/A; Pain 2/10; mg2 19:51 Body Mass Index 27.10 (69.40 kg, 160.02 cm) ed1 MDM: 19:57 Patient medically screened. tw4 23:39 Differential Diagnosis: Obstructed Airway Influenza. Data reviewed: vital signs, nurses tw4 notes. Data interpreted: Pulse oximetry: Interpretation: normal. Counseling: I had a detailed discussion with the patient and/or guardian regarding: the historical points, exam findings, and any diagnostic results supporting the discharge/admit diagnosis, lab results, radiology results. Special discussion: I discussed with the patient/guardian in detail that at this point there is no indication for admission to the hospital. It is understood, however, that if the symptoms persist or worsen the patient needs to return immediately for re-evaluation. 08/04 19:58 Order name: Blood Culture Adult (2) 08/04 19:58 Order name: BMP; Complete Time: 22:30 08/04 22:30 Interpretation: Normal except: GLUC 124; CRE 1.37; GFR 38. 08/04 19:58 Order name: CBC with Diff; Complete Time: 22:30 08/04 22:30 Interpretation: Normal except: RDW 16.5. 08/04 19:58 Order name: Ckmb; Complete Time: 22:31 08/04 22:31 Interpretation: Within normal limits: CKMB 1.2. 08/04 19:58 Order name: CPK; Complete Time: 22:31 08/04 22:31 Interpretation: Within normal limits: CPK 64. 08/04 19:58 Order name: D-Dimer; Complete Time: 22:30 08/04 22:30 Interpretation: Normal except: D-DIMER 1044. 08/04 19:58 Order name: XRAY CXR (1 view); Complete Time: 21:03 08/04 21:03 Interpretation: No acute disease. 08/04 19:58 Order name: Hepatic Function; Complete Time: 22:30 08/04 22:30 Interpretation: Normal except: GLOB 4.2; A/G 0.9. 08/04 19:58 Order name: Lipase; Complete Time: 22:31 08/04 22:31 Interpretation: Within normal limits: LIP 117. 08/04 19:58 Order name: Magnesium; Complete Time: 22:31 08/04 22:31 Interpretation: Within normal limits: MG 1.9. 08/04 19:58 Order name: NT PRO-BNP; Complete Time: 22:30 08/04 22:30 Interpretation: Normal except: NT PRO-BNP 153. 08/04 19:58 Order name: PT-INR; Complete Time: 22:31 08/04 22:31 Interpretation: Within normal limits: PT 12.0. 08/04 19:58 Order name: Ptt, Activated; Complete Time: 22:31 08/04 22:31 Interpretation: Within normal limits: PTT 31.9. 08/04 19:58 Order name: Troponin (emerg Dept Use Only); Complete Time: 22:31 08/04 22:31 Interpretation: Within normal limits: TROPED < 0.02. 08/04 19:58 Order name: EKG; Complete Time: 20:00 08/04 19:58 Order name: Cardiac monitoring; Complete Time: 20:39 08/04 19:58 Order name: EKG - Nurse/Tech; Complete Time: 20:39 08/04 19:58 Order name: IV Saline Lock; Complete Time: 20:40 08/04 19:58 Order name: Labs collected and sent; Complete Time: 20:40 08/04 19:58 Order name: O2 Per Protocol; Complete Time: 20:41 08/04 19:58 Order name: O2 Sat Monitoring; Complete Time: 20:41 08/04 21:04 Order name: CT Chest For PE Angio tw4 EC:07 Rate is 98 beats/min. Rhythm is regular. QRS [place] is Normal. SC interval is normal. QRS tw4 interval is normal. QT interval is normal. No Q waves. T waves are Normal. No ST changes noted. Clinical impression: NSR w/ Non-specific ST/T Changes and Abnormal EKG without significant change. Interpreted by me. Reviewed by me. Administered Medications: 23:45 Drug: Tussionex Pennkinetic ER 5 ml Route: PO; mg2 23:45 Follow up: Response: No adverse reaction; Medication administered at discharge. mg2 Disposition: 08/04/18 23:40 Discharged to Home. Impression: Simple chronic bronchitis. - Condition is Stable. - Discharge Instructions: Chronic Bronchitis, Cough, Adult, [id number]. - Prescriptions for ROBITUSSIN AC - take 5 milliliter by ORAL route 2 times per day; 100 milliliter. - Medication Reconciliation Form, Thank You Letter, Antibiotic Education, Prescription Opioid Use form. - Follow up: OSIEL CORLEY; When: Upon discharge from the Emergency Department; Reason: If symptoms return, Recheck today's complaints, Continuance of care. Signatures: Dispatcher [employer] EDMS Zoey Hameed RN RN ed1 David Dumont MD MD tw4 Sylvester Nicole RN RN mg2 Corrections: (The following items were deleted from the chart) 08/05 00:01 06 23:40 08/04/2018 23:40 Discharged to Home. Impression: Simple chronic bronchitis. mg2 Condition is Stable. Forms are Medication Reconciliation Form, Thank You Letter, Antibiotic Education, Prescription Opioid Use. Follow up: OSIEL CORLEY; When: Upon discharge from the Emergency Department; Reason: If symptoms return, Recheck today's complaints, Continuance of care. tw4
[2018-08-04] MEDS ORDERED: HYDROCODONE/CHLORPHEN 5 ML/OSYR ONE (23:53)
[2018-08-05 02:50] VITALS: O2SAT 100
[2018-08-05 02:52] VITALS: TEMP 98.5
[2018-08-05 02:53] VITALS: BP 133/80
--- NOTE | 2018-08-05 11:11 | EKG ---
Test Date: 2018-08-04 Test Time: 20:03:39 Provider Relations Manager: JYTOHI MEASUREMENT RESULTS: Intervals: Rate: 98 WV: 136 QRSD: 80 QT: 346 QTc: 441 [employer]: P: 45 WV: 136 QRS: -36 T: 45 INTERPRETIVE STATEMENTS: Normal sinus rhythm Left axis deviation Cannot rule out Anterior infarct, age undetermined Abnormal ECG Compared to ECG 10/02/2017 22:16:43 Left-axis deviation now present Myocardial infarct finding now present Electronically Signed On 08-05-18 11:09:46 CDT by Natanael Larios
--- NOTE | 2018-08-05 11:26 | RAD REPORT ---
EXAM DESCRIPTION: CT - Chest For Pe Angio - 08/05/2018 4:25 am CLINICAL HISTORY: 72 years Female SOB COMPARISON: None TECHNIQUE: Images were obtained in axial, sagittal, and coronal planes. Intravenous contrast was adm inistered. This exam was performed according to our departmental dose-optimization program which includes use of Automated Exposure Control, adjustment of the mA and/or kV according to patient size and/or use of i terative reconstruction technique. FINDINGS: No filling defects pulmonary arteries bilaterally. No aortic dissection or dilatation. No pericardial or pleural effusions bilaterally. No adenopathy. No lung parenchymal infiltrates or nodules seen. No acute osseous abnormality. Marked multilevel osteoarthritic change. Fatty change involving the liver. IMPRESSION: No evidence for pulmonary embolus. No aortic dissection or dilatation. No infiltrates seen. Electronically signed by: Sonia Flores MD 08/04/2018 10:06 PM CDT Due to temporary technical issues with the PACS/Fluency reporting system, reports are being signed by the in house radiologist as a courtesy to ensure prompt reporting. The interpreting radiologist is f ully responsible for the content of the report.
== END 2018-08-05 00:01 | disposition home or self-care (01) ==
LOC: ER 19:42
DX: J41.0 Simple chronic bronchitis (principal); E11.9 Type 2 diabetes mellitus without complications; I10 Essential (primary) hypertension; E78.00 Pure hypercholesterolemia, unspecified; Z79.4 Long term (current) use of insulin
CPT/HCPCS: 93005; 87040 ×2; 85025; 80048; 36415; 83735; 82550; 85610; 85379; 80076; 85730; 84484; 82553; 83690; 83880; 71275; 71045; 99285; Q9967

== ENCOUNTER 2019-02-09 08:52 | Emergency (ER) | payer OTHER ==
--- OUTSIDE RECORDS SUMMARY | 2019-02-09 08:54 | XMS REPORT ---
:1945 [facility] Address [address] [place] [address] Dr. Mckeon [address] [place] [id number] Care Team Providers Name Role Phone Unavailable Unavailable Unavailable Problems This patient has no known problems. Allergies, Adverse Reactions, Alerts This patient has no known allergies or adverse reactions. Medications This patient has no known medications.
[2019-02-09] MEDS ORDERED: METHYLPREDNISOLONE 125 MG INJ ONE (09:57)
[2019-02-09] MEDS ORDERED: HYDROCODONE/CHLORPHEN 5 ML/OSYR ONE (09:58)
--- NOTE | 2019-02-09 10:42 | RAD REPORT ---
EXAM DESCRIPTION: RAD - Chest Single View - 02/09/2019 10:34 am CLINICAL HISTORY: DYSPNEA Chest pain. COMPARISON: Chest Pa And Lat (2 Views) dated 09/08/2018; Chest Single View dated 08/04/2018; Chest Sing le View dated 10/02/2017; Chest Single View dated 07/31/2017 FINDINGS: Portable technique limits examination quality. The lungs are grossly clear. The heart is normal in size. No displaced fractures. IMPRESSION: No acute intrathoracic process suspected.
--- NOTE | 2019-02-09 10:43 | EDPHYS ---
Physician Documentation [facility] Name: Estephania Corrales Age: 73 yrs Sex: Female : 1945 Arrival Date: 02/09/2019 Time: 08:56 Bed 13 Private MD: ED Physician Gutierrez Bowden HPI: 02/09 10:15 This 73 yrs old Female presents to ER via Ambulatory with complaints of Cough, jr8 Congestion, Chest Pain, Sore Throat. 10:15 The patient or guardian reports cough, that is intermittent, described as mild, with jr8 productive sputum, that is green. Onset: The symptoms/episode began/occurred gradually, 1 month(s) ago. Severity of symptoms: At their worst the symptoms were moderate, in the emergency department the symptoms are unchanged. Modifying factors: The symptoms are alleviated by nothing, the symptoms are aggravated by nothing. Associated signs and symptoms: Pertinent positives: sore throat. The patient has not experienced similar symptoms in the past. The patient has been recently seen by a physician:. Patient stated that she has been on a couple rounds of abx. Stated that she continues to have cough and now having loss of voice and sore throat. Pain with cough in chest . Historical: - Allergies: 09:17 No Known Allergies; iw - Home Meds: 09:17 carvedilol 25 mg Oral tab [Active]; celecoxib 200 mg Oral cap 1 cap once daily iw [Active]; esomeprazole magnesium 20 mg Oral cpDR 1 cap once daily [Active]; Lyrica 75mg Oral 1 cap 3 times per day [Active]; Janumet XR 50-1,000 mg Oral TM24 1 tab BID [Active]; montelukast 10 mg Oral tab 1 tab once daily [Active]; - PMHx: 09:17 Chronic pain; Diabetes - IDDM; Herniated disc; High Cholesterol; Hypertension; iw - PSHx: 09:17 right hip; elisa knees; Appendectomy; Cholecystectomy; iw - Immunization history:: Adult Immunizations not up to date. - Social history:: Smoking status: Patient/guardian denies using tobacco. - Ebola Screening: : Patient negative for fever greater than or equal to 101.5 degrees Fahrenheit, and additional compatible Ebola Virus Disease symptoms Patient denies exposure to infectious person Patient denies travel to an Ebola-affected area in the 21 days before illness onset No symptoms or risks identified at this time. ROS: 10:15 Eyes: Negative for injury, pain, redness, and discharge, Neck: Negative for injury, jr8 pain, and swelling, Abdomen/GI: Negative for abdominal pain, nausea, vomiting, diarrhea, and constipation, Back: Negative for injury and pain, MS/Extremity: Negative for injury and deformity, Skin: Negative for injury, rash, and discoloration, Neuro: Negative for headache, weakness, numbness, tingling, and seizure. 10:15 ENT: Positive for sore throat. 10:15 Cardiovascular: Positive for chest pain, with cough, Negative for edema, orthopnea, palpitations, paroxysmal nocturnal dyspnea. 10:15 Respiratory: Positive for cough, with green sputum. Exam: 10:15 Eyes: Pupils equal round and reactive to light, extra-ocular motions intact. Lids and jr8 lashes normal. Conjunctiva and sclera are non-icteric and not injected. Cornea within normal limits. Periorbital areas with no swelling, redness, or edema. ENT: Nares patent. No nasal discharge, no septal abnormalities noted. Tympanic membranes are normal and external auditory canals are clear. Oropharynx with mild redness No swelling, or masses, exudates, or evidence of obstruction, uvula midline. Mucous membranes moist. Neck: Trachea midline, no thyromegaly or masses palpated, and no cervical lymphadenopathy. Supple, full range of motion without nuchal rigidity, or vertebral point tenderness. No Meningismus. Chest/axilla: Normal chest wall appearance and motion. Nontender with no deformity. No lesions are appreciated. Cardiovascular: Regular rate and rhythm with a normal S1 and S2. No gallops, murmurs, or rubs. Normal PMI, no JVD. No pulse deficits. Respiratory: Lungs have equal breath sounds bilaterally, clear to auscultation and percussion. No rales, rhonchi or wheezes noted. No increased work of breathing, no retractions or nasal flaring. Abdomen/GI: Soft, non-tender, with normal bowel sounds. No distension or tympany. No guarding or rebound. No evidence of tenderness throughout. Back: No spinal tenderness. No costovertebral tenderness. Full range of motion. Skin: Warm, dry with normal turgor. Normal color with no rashes, no lesions, and no evidence of cellulitis. MS/ Extremity: Pulses equal, no cyanosis. Neurovascular intact. Full, normal range of motion. Neuro: Awake and alert, GCS 15, oriented to person, place, time, and situation. Cranial nerves II-XII grossly intact. Motor strength 5/5 in all extremities. Sensory grossly intact. Cerebellar exam normal. Normal gait. Vital Signs: 09:14 BP 131 / 61; Pulse 74; Resp 20; Temp 97.3; Pulse Ox 100% on R/A; Weight 68.49 kg; iw Height 5 ft. 3 in. (160.02 cm); Pain 12/09; 09:14 Body Mass Index 26.75 (68.49 kg, 160.02 cm) iw MDM: 09:33 Patient medically screened. jr8 10:42 Data reviewed: vital signs, nurses notes, radiologic studies, plain films, and as a jr8 result, I will discharge patient. Data interpreted: Pulse oximetry: on room air is 100 %. Interpretation: normal. Counseling: I had a detailed discussion with the patient and/or guardian regarding: the historical points, exam findings, and any diagnostic results supporting the discharge/admit diagnosis, radiology results, the need for outpatient follow up, a family practitioner, to return to the emergency department if symptoms worsen or persist or if there are any questions or concerns that arise at home. 02/09 09:54 Order name: HODAAY Chest (1 view) 8 02/09 10:47 Order name: JULIANNE VASQUEZ Administered Medications: 10:02 Drug: Tussionex Pennkinetic ER 5 ml Route: PO; sg 10:15 Follow up: Response: No adverse reaction sg 10:02 Drug: SOLU-Medrol 125 mg Route: IM; Site: left ventrogluteal; sg 10:10 Follow up: Response: No adverse reaction sg Disposition: 02/10 07:12 Co-signature as Attending Physician, Gutierrez Bowden MD I agree with the assessment and kdr plan of care. Disposition: 02/09/19 10:42 Discharged to Home. Impression: Acute laryngitis. - Condition is Stable. - Discharge Instructions: Laryngitis, Upper Respiratory Infection, Adult. - Prescriptions for Prednisone 20 mg Oral Tablet - take 1 tablet by ORAL route once daily for 5 days; 5 tablet. - Medication Reconciliation Form, Thank You Letter, Antibiotic Education, Prescription Opioid Use form. - Follow up: Private Physician; When: 2 - 3 days; Reason: Recheck today's complaints, Continuance of care, Re-evaluation by your physician. - Problem is new. - Symptoms have improved. Signatures: Dispatcher [employer] EDMS Rj Christina RN RN sg Gutierrez Bowden MD MD [facility] Marissa Deras RN RN iw Roszak, Josh, PA PA jr8 Corrections: (The following items were deleted from the chart) 02/09 10:50 10:42 02/09/2019 10:42 Discharged to Home. Impression: Acute laryngitis. Condition is iw Stable. Forms are Medication Reconciliation Form, Thank You Letter, Antibiotic Education, Prescription Opioid Use. Follow up: Private Physician; When: 2 - 3 days; Reason: Recheck today's complaints, Continuance of care, Re-evaluation by your physician. Problem is new. Symptoms have improved. jr8
--- NOTE | 2019-02-09 10:43 | ER ---
Nurse's Notes [facility] Name: Estephania Corrales Age: 73 yrs Sex: Female : 1945 Arrival Date: 02/09/2019 Time: 08:56 Bed 13 Private MD: Diagnosis: Acute laryngitis Presentation: 02/09 09:14 Presenting complaint: Patient states: has been coughing green stuff for over a week, iw hsa been on abx X 2 , not getting better, also has hoarse throat X 3 weeks, fever at home, c/o headache, +SOB, +chest tightness. Transition of care: patient was not received from another setting of care. Onset of symptoms was December 2018. Risk Assessment: Do you want to hurt yourself or someone else? Patient reports no desire to harm self or others. Initial Sepsis Screen: Does the patient meet any 2 criteria? No. Patient's initial sepsis screen is negative. Does the patient have a suspected source of infection? Yes: Productive cough/pneumonia. Care prior to arrival: None. 09:14 Method Of Arrival: Ambulatory iw 09:14 Acuity: PALMIRA 3 iw Historical: - Allergies: 09:17 No Known Allergies; iw - Home Meds: 09:17 carvedilol 25 mg Oral tab [Active]; celecoxib 200 mg Oral cap 1 cap once daily iw [Active]; esomeprazole magnesium 20 mg Oral cpDR 1 cap once daily [Active]; Lyrica 75mg Oral 1 cap 3 times per day [Active]; Janumet XR 50-1,000 mg Oral TM24 1 tab BID [Active]; montelukast 10 mg Oral tab 1 tab once daily [Active]; - PMHx: 09:17 Chronic pain; Diabetes - IDDM; Herniated disc; High Cholesterol; Hypertension; iw - PSHx: 09:17 right hip; elisa knees; Appendectomy; Cholecystectomy; iw - Immunization history:: Adult Immunizations not up to date. - Social history:: Smoking status: Patient/guardian denies using tobacco. - Ebola Screening: : Patient negative for fever greater than or equal to 101.5 degrees Fahrenheit, and additional compatible Ebola Virus Disease symptoms Patient denies exposure to infectious person Patient denies travel to an Ebola-affected area in the 21 days before illness onset No symptoms or risks identified at this time. Assessment: 09:30 General: Appears in no apparent distress. well groomed, well developed, well nourished, sg Behavior is calm, cooperative, appropriate for age. Pain: Complains of pain in sore throat Quality of pain is described as aching. Neuro: Level of Consciousness is awake, alert, obeys commands, Oriented to person, place, time, situation, Program Strategist are equal bilaterally. Cardiovascular: Capillary refill is brisk in bilateral fingers Patient's skin is warm and dry. Chest pain is denied. Respiratory: Airway is patent Respiratory effort is even, unlabored, Respiratory pattern is regular, symmetrical, Breath sounds are coarse. GI: No signs and/or symptoms were reported involving the gastrointestinal system. : No signs and/or symptoms were reported regarding the genitourinary system. EENT: Throat is pink. Derm: Skin is pink, warm \T\ dry. Musculoskeletal: Circulation, motion, and sensation intact. Range of motion: intact in all extremities. Vital Signs: 09:14 BP 131 / 61; Pulse 74; Resp 20; Temp 97.3; Pulse Ox 100% on R/A; Weight 68.49 kg; iw Height 5 ft. 3 in. (160.02 cm); Pain 10/10; 09:14 Body Mass Index 26.75 (68.49 kg, 160.02 cm) iw ED Course: 08:56 Patient arrived in ED. mr 09:14 Arm band placed on. iw 09:15 Patient has correct armband on for positive identification. Bed in low position. Call sg light in reach. Pulse ox on. NIBP on. 09:16 Triage completed. iw 09:18 EKG done, by mri tech. reviewed by Gutierrez Bowden MD. at1 09:24 Jeffrey Logan PA is PHCP. jr8 09:24 Gutierrez Bowden MD is Attending Physician. jr8 09:47 Rj Christina, CLAIR is Primary Nurse. sg 10:03 Awaiting radiology results. sg 10:42 No provider procedures requiring assistance completed. Patient did not have IV access sg during this emergency room visit. intact. 10:48 RAD In Process Unspecified. EDMS Administered Medications: 10:02 Drug: Tussionex Pennkinetic ER 5 ml Route: PO; sg 10:15 Follow up: Response: No adverse reaction sg 10:02 Drug: SOLU-Medrol 125 mg Route: IM; Site: left ventrogluteal; sg 10:10 Follow up: Response: No adverse reaction Outcome: 10:42 Discharge ordered by MD. alvarenga 10:47 Discharged to home ambulatory, with family. 10:47 Condition: good 10:47 Discharge instructions given to patient, Instructed on discharge instructions, follow up and referral plans. safety practices, Demonstrated understanding of instructions, follow-up care, Prescriptions given X 1. 10:50 Patient left the ED. iw Signatures: Dispatcher [employer] EDMS Rj Christina, RN RN Katja Turcios Irene RN RN iw Jeffrey Logan PA PA jr8 Gonzales, Amanda, swine extension field specialist EKG Tat1
[2019-02-09 10:55] VITALS: BP 131/61; TEMP 97.3; O2SAT 100
--- NOTE | 2019-02-09 16:25 | EKG ---
Test Date: 2019-02-09 Test Time: 09:17:48 Affirmative Action Specialist: ALONSO MEASUREMENT RESULTS: Intervals: Rate: 71 WI: 148 QRSD: 74 QT: 382 QTc: 415 [place]: P: 23 WI: 148 QRS: -15 T: 62 INTERPRETIVE STATEMENTS: Normal sinus rhythm Normal ECG Compared to ECG 08/04/2018 20:03:39 Left-axis deviation no longer present Myocardial infarct finding no longer present Electronically Signed On 02-09-19 16:24:17 CABLE RIGGER by Rodolfo Ritter
== END 2019-02-09 10:50 | disposition home or self-care (01) ==
LOC: ER 08:52
DX: J04.0 Acute laryngitis (principal); I10 Essential (primary) hypertension; E11.9 Type 2 diabetes mellitus without complications; E78.00 Pure hypercholesterolemia, unspecified; Z79.4 Long term (current) use of insulin
CPT/HCPCS: 93005; 71045; 96372; 99284; J2930

== ENCOUNTER 2019-03-16 14:37 | Emergency (ER) | payer OTHER ==
--- OUTSIDE RECORDS SUMMARY | 2019-03-16 14:40 | XMS REPORT ---
:1945 [facility] Address [address] [place] [address] [address]. [address] [place] [address] Care Team Providers Name Role Phone Unavailable Unavailable Unavailable Problems This patient has no known problems. Allergies, Adverse Reactions, Alerts This patient has no known allergies or adverse reactions. Medications This patient has no known medications.
--- NOTE | 2019-03-16 16:08 | RAD REPORT ---
EXAM DESCRIPTION: RAD - Knee Right 3 View - 03/16/2019 3:44 pm CLINICAL HISTORY: Right knee pain status post injury FINDINGS: Knee prosthesis in good position. No evidence of loosening No fracture or dislocation Osteoporosis
[2019-03-16] MEDS ORDERED: ACETAMINOPHEN 325 MG TABLET ONE (16:09)
[2019-03-16] MEDS ORDERED: IBUPROFEN 400 MG TAB ONE (16:09)
--- NOTE | 2019-03-16 16:09 | RAD REPORT ---
EXAM DESCRIPTION: RAD - Knee Left 3 View - 03/16/2019 3:44 pm CLINICAL HISTORY: Left knee pain status post injury FINDINGS: No fracture or dislocation is seen. A left knee prosthesis is in good position. No evidence of loosening seen Osteoporosis
--- NOTE | 2019-03-16 16:12 | RAD REPORT ---
EXAM DESCRIPTION: RAD - Elbow Left 3 View - 03/16/2019 3:44 pm CLINICAL HISTORY: Left elbow pain status post trauma FINDINGS: The bones are osteoporotic No fracture or dislocation is seen. If the patient continues have symptoms to suggest an occult fracture follow-up x-ray in 1 week would be recommended
--- NOTE | 2019-03-16 16:41 | RAD REPORT ---
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 Spondylolysis L5 No acute fracture. Mild to moderate spondylosis Osteoporosis
--- NOTE | 2019-03-16 16:42 | RAD REPORT ---
EXAM DESCRIPTION: RAD - Thoracic Spine Ap/Lat - 03/16/2019 4:35 pm CLINICAL HISTORY: Back pain FINDINGS: No fracture or dislocation Osteoporosis Moderate diffuse spondylosis consisting mainly of osteophytes and disc space narrowing Mild scoliosis
--- NOTE | 2019-03-16 17:05 | EDPHYS ---
Physician Documentation [facility] Name: Estephania Corrales Age: 73 yrs Sex: Female : 1945 Arrival Date: 03/16/2019 Time: 14:38 Bed 30 Private MD: ED Physician Anson Lock HPI: 03/16 16:00 This 73 yrs old Female presents to ER via Wheelchair with complaints of Fall cp Injury, Knee Pain, Hip Pain. 16:00 Details of fall: The patient fell from an upright position, while standing. Onset: The cp symptoms/episode began/occurred today. Associated injuries: The patient sustained upper back injury, pain, injury to the low back, pain, left elbow, painful injury, right knee and left knee, painful injury, left hip, painful injury. Severity of symptoms: in the emergency department the symptoms are unchanged, despite home interventions. Historical: - Allergies: 14:49 No Known Drug Allergies; sv - PMHx: 14:49 Chronic pain; Diabetes - IDDM; Herniated disc; High Cholesterol; Hypertension; sv - PSHx: 14:49 right hip; elisa knees; Appendectomy; Cholecystectomy; sv - Immunization history:: Adult Immunizations up to date. - Social history:: Smoking status: Patient/guardian denies using tobacco. - Ebola Screening: : Patient denies exposure to infectious person Patient denies travel to an Ebola-affected area in the 21 days before illness onset. ROS: 16:04 Constitutional: Negative for body aches, chills, fever, poor PO intake. cp 16:04 Neck: Negative for pain with movement, pain at rest, stiffness. 16:04 Cardiovascular: Negative for chest pain, palpitations. 16:04 Respiratory: Negative for cough, shortness of breath, wheezing. 16:04 Abdomen/GI: Negative for abdominal pain, nausea, vomiting, and diarrhea. 16:04 Back: Positive for pain at rest, pain with movement, of the thoracic area and lumbar area, Negative for decreased range of motion. 16:04 MS/extremity: Positive for pain, of the right knee and left knee and left elbow and left hip, Negative for decreased range of motion, deformity. 16:04 Neuro: Negative for loss of consciousness, syncope, weakness. 16:04 All other systems are negative. Exam: 16:15 Constitutional: The patient appears in no acute distress, alert, awake, cp non-diaphoretic, non-toxic, well developed, well nourished. 16:15 Head/Face: Normocephalic, atraumatic. cp 16:15 Eyes: Periorbital structures: appear normal, Conjunctiva: normal, no exudate, no injection, Lids and lashes: appear normal, bilaterally. 16:15 ENT: External ear(s): are unremarkable, Nose: is normal, Mouth: Lips: moist, Oral mucosa: pink and intact, moist, Posterior pharynx: Airway: no evidence of obstruction, patent. 16:15 Neck: C-spine: vertebral tenderness, is not appreciated, crepitus, is not appreciated, ROM/movement: is normal, is supple, without pain, no range of motions limitations, no nuchal rigidity. 16:15 Chest/axilla: Inspection: normal, Palpation: is normal, no crepitus, no tenderness. 16:15 Cardiovascular: Rate: normal, Rhythm: regular. 16:15 Respiratory: the patient does not display signs of respiratory distress, Respirations: normal, no use of accessory muscles, no retractions, labored breathing, is not present, Breath sounds: are clear throughout, no decreased breath sounds, no stridor, no wheezing. 16:15 Abdomen/GI: Inspection: abdomen appears normal, Palpation: abdomen is soft and non-tender, in all quadrants. 16:15 Back: pain, that is moderate, of the thoracic area and lumbar area, ROM is painful. 16:15 Musculoskeletal/extremity: Exam is negative for decreased range of motion, deformity, Pulses: noted to be 2+ in the right radial artery, right dorsalis pedis artery, left radial artery and left dorsalis pedis artery, Joints: All joints are normal except the left elbow displays painful range of motion, tenderness, the left hip displays painful range of motion, tenderness, the left kneedisplays pain at rest, painful range of motion, the right kneedisplays pain at rest, painful range of motion. 16:15 Skin: Exam negative for abrasion, laceration. 16:15 Neuro: Orientation: to person, place \T\ time. Mentation: is normal, Motor: moves all fours, strength is normal, Sensation: is normal. Vital Signs: 14:49 BP 112 / 99; Pulse 81; Resp 19; Temp 99.2; Pulse Ox 97% ; Weight 68.49 kg; Height 5 ft. sv 3 in. (160.02 cm); Pain 10/10; 14:49 Body Mass Index 26.75 (68.49 kg, 160.02 cm) sv MDM: 15:32 Patient medically screened. estevan 16:00 Differential diagnosis: closed head injury, contusion, fracture, laceration, multiple cp trauma. 17:05 Data reviewed: vital signs, nurses notes, radiologic studies, plain films. cp 17:05 Test interpretation: by ED physician or midlevel provider: plain radiologic studies. cp Counseling: I had a detailed discussion with the patient and/or guardian regarding: the historical points, exam findings, and any diagnostic results supporting the discharge/admit diagnosis, radiology results, the need for outpatient follow up, a family practitioner, to return to the emergency department if symptoms worsen or persist or if there are any questions or concerns that arise at home. Response to treatment: the patient's symptoms have mildly improved after treatment. 03/16 14:55 Order name: Knee Left 3 View XRAY; Complete Time: 16:48 sv 03/16 16:48 Interpretation: Report reviewed. cp 03/16 14:55 Order name: Knee Right 3 View XRAY; Complete Time: 16:48 sv 03/16 16:49 Interpretation: Report reviewed. cp 03/16 14:55 Order name: Elbow Left 3 View XRAY; Complete Time: 16:48 sv 03/16 16:49 Interpretation: Report reviewed. cp 03/16 15:46 Order name: XRAY Lumbar Spine (3 Views); Complete Time: 16:48 cp 03/16 16:49 Interpretation: Report reviewed. cp 03/16 15:46 Order name: XRAY Thoracic Spine (Ap/lat); Complete Time: 16:48 cp 03/16 16:49 Interpretation: Report reviewed. cp 03/16 15:46 Order name: XRAY Pelvis; Complete Time: 17:11 cp 03/16 17:11 Interpretation: Report reviewed. cp 03/16 15:46 Order name: XRAY Hip LEFT 2 view; Complete Time: 17:11 cp 03/16 17:11 Interpretation: Report reviewed. cp Administered Medications: 16:08 Drug: Ibuprofen 800 mg Route: PO; ss 17:19 Follow up: Response: No adverse reaction; Pain is decreased ss 16:08 Drug: Tylenol 650 mg Route: PO; 17:19 Follow up: Response: No adverse reaction; Pain is decreased ss 17:08 Drug: UltRAM 50 mg Route: PO; ss 17:08 Follow up: Response: Medication administered at discharge. Disposition: 17:30 Chart complete. cp 03/17 06:13 Co-signature as Attending Physician, Anson Lock MD I agree with the assessment and estevan plan of care. Disposition: 03/16/19 17:05 Discharged to Home. Impression: Fall on same level from slipping, tripping and stumbling, Pain in left hip, Pain in knee - bilateral, Pain in left elbow, Low back pain. - Condition is Stable. - Discharge Instructions: Back Pain, Adult, Elbow Contusion, Knee Pain, Hip Pain. - Prescriptions for Ibuprofen 800 mg Oral Tablet - take 1 tablet by ORAL route every 8 hours As needed take with food; 30 tablet. Tramadol 50 mg Oral Tablet - take 1 tablet by ORAL route every 8 hours as needed; 12 tablet. - Medication Reconciliation Form, Thank You Letter, Antibiotic Education, Prescription Opioid Use form. - Follow up: Private Physician; When: 1 - 2 days; Reason: Recheck today's complaints. - Problem is new. - Symptoms have improved. Signatures: Dispatcher [employer] Jeimy Singh RN RN sv Anderson, Corey, MD MD cha Smirch, Shelby, RN RN ss Page, Corey, PA PA cp Corrections: (The following items were deleted from the chart) 03/16 17:19 17:05 03/16/2019 17:05 Discharged to Home. Impression: Fall on same level from ss slipping, tripping and stumbling; Pain in left hip; Pain in knee - bilateral; Pain in left elbow; Low back pain. Condition is Stable. Forms are Medication Reconciliation Form, Thank You Letter, Antibiotic Education, Prescription Opioid Use. Follow up: Private Physician; When: 1 - 2 days; Reason: Recheck today's complaints. Problem is new. Symptoms have improved. cp
--- NOTE | 2019-03-16 17:05 | ER ---
Nurse's Notes [facility] Name: Estephania Corrales Age: 73 yrs Sex: Female : 1945 Arrival Date: 03/16/2019 Time: 14:38 Bed 30 Private MD: Diagnosis: Fall on same level from slipping, tripping and stumbling;Pain in left hip;Pain in knee-bilateral;Pain in left elbow;Low back pain Presentation: 03/16 14:47 Presenting complaint: Patient states: pt tripped and fell today and landed on bilateral sv knees, c/o low back pain, left elbow pain. Care prior to arrival: None. 14:47 Acuity: PALMIRA 4 sv 14:47 Method Of Arrival: Wheelchair sv 14:48 Transition of care: patient was not received from another setting of care. Onset of sv symptoms was March 16, 2019. 14:50 Risk Assessment: Do you want to hurt yourself or someone else? Patient reports no ss desire to harm self or others. Initial Sepsis Screen: Does the patient meet any 2 criteria? No. Patient's initial sepsis screen is negative. Does the patient have a suspected source of infection? No. Patient's initial sepsis screen is negative. Triage Assessment: 14:47 General: Appears in no apparent distress. uncomfortable, Behavior is cooperative, sv appropriate for age. Pain: Complains of pain in left elbow, right knee and left knee. Neuro: Level of Consciousness is awake, alert, obeys commands. Respiratory: Respiratory effort is even, unlabored. Trauma Activation: Not Applicable Physician: ED Physician; Name: ; Notified At: ; Arrived At: Physician: General Surgeon; Name: ; Notified At: ; Arrived At: Physician: Radiology; Name: ; Notified At: ; Arrived At: Physician: Respiratory; Name: ; Notified At: ; Arrived At: Physician: Lab; Name: ; Notified At: ; Arrived At: Historical: - Allergies: 14:49 No Known Drug Allergies; sv - PMHx: 14:49 Chronic pain; Diabetes - IDDM; Herniated disc; High Cholesterol; Hypertension; sv - PSHx: 14:49 right hip; elisa knees; Appendectomy; Cholecystectomy; sv - Immunization history:: Adult Immunizations up to date. - Social history:: Smoking status: Patient/guardian denies using tobacco. - Ebola Screening: : Patient denies exposure to infectious person Patient denies travel to an Ebola-affected area in the 21 days before illness onset. Screenin:45 Abuse screen: Denies threats or abuse. Denies injuries from another. Nutritional ss screening: No deficits noted. Tuberculosis screening: Never had TB. Fall Risk None identified. Assessment: 13:45 General: Appears uncomfortable, Behavior is cooperative, anxious, Denies fever, feeling ss ill, fatigue, chills. Pain: Complains of pain in bilateral ankles, back in entire, L elbow and bilateral knees Pain currently is 9 out of 10 on a pain scale. Quality of pain is described as aching, Pain began 1 hour ago. Is continuous, Aggravated by increased activity, repositioning, weight bearing, Noted to be grimacing, moaning. Neuro: Level of Consciousness is awake, alert, obeys commands, Oriented to person, place, time, situation. Cardiovascular: Capillary refill < 3 seconds is brisk in bilateral. Respiratory: Airway is patent Respiratory effort is even, unlabored, Respiratory pattern is regular, symmetrical. GI: Patient currently denies abdominal pain, diarrhea, nausea, vomiting. : No signs and/or symptoms were reported regarding the genitourinary system. EENT: Nares are clear Throat is clear. Derm: Skin is intact, is healthy with good turgor, Skin is dry, Skin is pink, warm \T\ dry. normal. Musculoskeletal: Circulation, motion, and sensation intact. Range of motion: intact in all extremities, Swelling absent. 16:15 Reassessment: Pt in XRAY at this time. ss Vital Signs: 14:49 BP 112 / 99; Pulse 81; Resp 19; Temp 99.2; Pulse Ox 97% ; Weight 68.49 kg; Height 5 ft. sv 3 in. (160.02 cm); Pain 10/10; 14:49 Body Mass Index 26.75 (68.49 kg, 160.02 cm) sv ED Course: 13:45 Patient has correct armband on for positive identification. Bed in low position. ss 14:38 Patient arrived in ED. as 14:48 Triage completed. sv 14:49 Patient placed. sv 15:32 Anson Guerra PA is PHCP. cp 15:32 Anson Lock MD is Attending Physician. cp 15:44 Knee Left 3 View XRAY In Process Unspecified. EDMS 15:44 Knee Right 3 View XRAY In Process Unspecified. EDMS 15:44 Elbow Left 3 View XRAY In Process Unspecified. EDMS 16:03 Yadira Olmstead, RN is Primary Nurse. ss 16:38 XRAY Lumbar Spine (3 Views) In Process Unspecified. EDMS 16:38 XRAY Thoracic Spine (Ap/lat) In Process Unspecified. EDMS 16:38 XRAY Pelvis In Process Unspecified. EDMS 16:38 XRAY Hip LEFT 2 view In Process Unspecified. EDMS 17:15 No provider procedures requiring assistance completed. Patient did not have IV access ss during this emergency room visit. Administered Medications: 16:08 Drug: Ibuprofen 800 mg Route: PO; ss 17:19 Follow up: Response: No adverse reaction; Pain is decreased ss 16:08 Drug: Tylenol 650 mg Route: PO; ss 17:19 Follow up: Response: No adverse reaction; Pain is decreased ss 17:08 Drug: UltRAM 50 mg Route: PO; ss 17:08 Follow up: Response: Medication administered at discharge. ss Outcome: 17:05 Discharge ordered by MD. cp 17:15 Discharged to home ambulatory, with family. ss 17:15 Condition: good 17:15 Discharge instructions given to patient, Instructed on discharge instructions, follow up and referral plans. medication usage, Demonstrated understanding of instructions, follow-up care, medications, Prescriptions given X 2. 17:19 Patient left the ED. ss Signatures: Dispatcher [employer] EDIA Jeimy Rios RN RN sv Martinez, Amelia as Smirch, Shelby, RN RN Anson Guerra PA PA cp Corrections: (The following items were deleted from the chart) 14:48 14:47 Presenting complaint: Patient states: pt tripped and fell today and landed on sv bilateral knees, c/o low back pain. sv
--- NOTE | 2019-03-16 17:07 | RAD REPORT ---
EXAM DESCRIPTION: RAD - Pelvis - 03/16/2019 4:35 pm CLINICAL HISTORY: Left hip pain status post injury FINDINGS: Osteoporosis Moderate osteoarthritis involves the left hip No fracture or dislocation is seen. If the patient continues to have symptoms to suggest an occult fracture then MRI would be recommended
--- NOTE | 2019-03-16 17:08 | RAD REPORT ---
EXAM DESCRIPTION: RAD - Hip Left 2 View - 03/16/2019 4:35 pm CLINICAL HISTORY: Left hip pain status post injury FINDINGS: Osteoporosis Moderate osteoarthritis involves the left hip No fracture or dislocation is seen. If the patient continues to have symptoms to suggest an occult fracture then MRI would be recommended
[2019-03-16] MEDS ORDERED: TRAMADOL HCL 50 MG TAB ONE (17:10)
[2019-03-16 17:42] VITALS: BP 112/99; TEMP 99.2; O2SAT 97
== END 2019-03-16 17:19 | disposition home or self-care (01) ==
LOC: ER 14:37
DX: M25.562 Pain in left knee (principal); M25.561 Pain in right knee; M25.522 Pain in left elbow; M54.5 Low back pain; W01.0XXA Fall on same level from slipping, tripping and stumbling without subsequent striking against object, initial encounter; Y93.9 Activity, unspecified; Y92.9 Unspecified place or not applicable
CPT/HCPCS: 72070; 72100; 72170; 99283

== ENCOUNTER 2021-04-02 10:54 | Emergency (ER) | payer OTHER ==
--- OUTSIDE RECORDS SUMMARY | 2021-04-02 10:57 | XMS REPORT | Continuity of Care Document ---
:[address] [facility] t Address 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 MARK Attending Clinician Unavailable Hilton Flower Attending Clinician Hilton KAUR Attending Clinician Unavailable PANCHO Attending Clinician Unavailable Sangeeta Oro DO Attending Clinician Sangeeta ORO Attending Clinician Unavailable GUI Attending Clinician Unavailable Bruna Roca Attending Clinician Ophelia Awad MD Attending Clinician Doctor Unassigned, Name Attending Clinician Unavailable Kim HAYES III Attending Clinician Unavailable VINCENT, Hilton Admitting Clinician Unavailable Sangeeta ORO Admitting Clinician Unavailable GUI Admitting Clinician Unavailable Kim HAYES III Admitting Clinician Unavailable Payers Payer Name Policy Type Policy Number Effective Date Expiration Date S ource MEDICAID OF [place] [id number] 2011 00:00:00 Problems Condition Condition Condition Status Onset Resolution Last Treating Co mments Source Name Details Category Date Date Treatment Clinician Date Bilateral Bilateral Disease Active Uni vers knee pain knee pain 6-27 ity of 00:00: [place] [facility] Lumbar Lumbar Disease Active Univers spondylosi spondylosi 9-25 it y of s s 00:00: [place] [facility] Fibromyalg Fibromyalg Disease Active U nivers ia ia 4-03 ity of 00:00: [place] [facility] Spinal Spinal Disease Active Univers stenosis stenosis 4-03 ity of 00:00: [place] 00 Medical Branch Calculus Calculus Disease Active Overview: Un kiley of kidney of kidney 11-11 Formattin i ty of 00:00: g of this [place] [address] note Medical might be Branch different from the original. 2mm calculus noted on CT, non-obstr ucting. Per medical records Allergies, Adverse Reactions, Alerts Allergy Allergy Status Severity Reaction(s) Onset Inactive Treating Comm ents Source Name Type Date Date Clinician NO KNOWN Drug Active Univers ALLERGIE Class ity of S [facility] Social History Social Habit Start Date Stop Date Quantity Comments Source Exposure to Not sure [facility] SARS-CoV-2 [facility] (event) Branch Tobacco use and 2020-10-29 2020-10-29 Never used Universit y of exposure 00:00:00 00:00:00 [facility] Alcohol intake 2020-10-29 2020-10-29 Current University 00:00:00 00:00:00 non-drinker of [facility] alcohol Branch (finding) Sex [birth year] Universit y of 00:00:00 00:00:00 [facility] Smoking Status Start Date Stop Date Source Never smoker [facility] Medications Ordered Filled Start Stop Current Ordering Indication Dosage Frequency Signature Comments Components Source Medication Medication Date Date Medication? Clinician (SIG) Name Name methocarbam 2019-0 2020- No 500mg 500 mg, U nivers ol 04-10 Oral, ity of (ROBAXIN) 16:45: 15:52 ONCE, 1 [place] tablet 500 [place] :00 dose, Sun Medi marisol mg 04/10/19 at Branch 1045, Routine ketorolac 2019- 2020- No 30mg 30 mg, Unive rs (TORADOL) 04-10 Slow IV ity of injection 16:45: 15:52 Push, [place] 30 mg 00 :00 ONCE, 1 Medical dose, [place] Branch 04/10/19 at 1045, AAMIR
Fa culty member approving Restricted medication : JOHANNA ORO methocarbam 2020-0 Yes [id number] 500mg Take 1 Univers ol 04-10 tablet by ity of (ROBAXIN) 00:00: mouth [place] 500 mg 00 every 6 Medical tablet (six) Branch hours as needed for Pain (scale 1-3). traMADol 50 2020-0 Yes [id number] 50mg Take 1 Univers mg tablet 2-09 tablet by ity o f 00:00: mouth [place] 00 every 6 Medical (six) Branch hours as needed for Pain (scale 1-3). methocarbam 2020-0 Yes [id number] 500mg Take 1 Univers ol 2-09 tablet by ity of (ROBAXIN) 00:00: mouth [place] 500 mg 00 every 6 Medical tablet (six) Branch hours as needed for Pain (scale 1-3). traMADol 50 2020-0 Yes [id number] 50mg Take 1 Univers mg tablet 2-09 tablet by ity o f 00:00: mouth [place] 00 every 6 Medical (six) Branch hours as needed for Pain (scale 1-3). methocarbam 2020-0 Yes [id number] 500mg Take 1 Univers ol 2-09 tablet by ity of (ROBAXIN) 00:00: mouth [place] 500 mg 00 every 6 Medical tablet (six) Branch hours as needed for Pain (scale 1-3). traMADol 50 2020-0 Yes [id number] 50mg Take 1 Univers mg tablet 2-09 tablet by ity o f 00:00: mouth [place] 00 every 6 Medical (six) Branch hours as needed for Pain (scale 1-3). azithromyci 2018-03 Yes [id number] 250mg Take 1 Univers n 2-22 9107 tablet by ity of (ZITHROMAX 00:00: mouth [place] Z-CHERRI) 250 00 SEE-INSTRU Med ical mg tablet CTIONS. Branch Take 500 mg day 1, then 250 mg days 2 to 5. benzonatate 2018-03 Yes [id number] 100mg Take 1 Univers 100 mg 2-22 9107 capsule by ity of capsule 00:00: mouth 3 [place] 00 (three) Medical times Branch daily as needed for Cough. azithromyci 2018-03 Yes [id number] 250mg Take 1 Univers n 2-22 9107 tablet by ity of (ZITHROMAX 00:00: mouth [place] Z-CHERRI) 250 00 SEE-INSTRU Med ical mg tablet CTIONS. Branch Take 500 mg day 1, then 250 mg days 2 to 5. benzonatate 2018-03 Yes [id number] 100mg Take 1 Univers 100 mg 2-22 9107 capsule by ity of capsule 00:00: mouth 3 [place] 00 (three) Medical times Branch daily as needed for Cough. azithromyci 2018-03 Yes [id number] 250mg Take 1 Univers n 2- 9107 tablet by ity of (ZITHROMAX 00:00: mouth [place] Z-CHERRI) 250 00 SEE-INSTRU Med ical mg tablet CTIONS. Branch Take 500 mg day 1, then 250 mg days 2 to 5. benzonatate 2018-03 Yes [id number] 100mg Take 1 Univers 100 mg 2- 9107 capsule by ity of capsule 00:00: mouth 3 [place] 00 (three) Medical times Branch daily as needed for Cough. FENTanyl PF 2018- No 50ug 50 mcg, Un kiley (SUBLIMAZE 11-19- Slow IV ity o f (PF)) 20:00: 19:15 Push, [place] injection 00 :00 ONCE, 1 Medical 50 mcg dose, Fri Branch 11/19/18 at 1500, Routine FENTanyl PF 2018- No 25ug 25 mcg, Un kiley (SUBLIMAZE 11-19- Slow IV ity o f (PF)) 17:45: 17:59 [place], [place] injection 00 :00 ONCE, 1 Medical 25 mcg dose, Fri Branch 11/19/18 at 1245, Routine traMADol Yes [id number] 50mg Take 1 Un kiley (ULTRAM) 50 9-20 tablet by ity of mg tablet 00:00: mouth [place] 00 every 6 Medical (six) Branch hours as needed for Pain (scale 7-10). methocarbam Yes [id number] 500mg Take 1 Univers ol 9-20 tablet by ity of (ROBAXIN) 00:00: mouth 4 [place] 500 mg 00 (four) Medical tablet times Branch daily as needed (MUSCLE SPASM). traMADol 2020- No [id number] 50mg Take 1 U nivers (ULTRAM) 50 9-20 02-09 tablet by it y of mg tablet 00:00: 00:00 mouth [place] 00 :00 every 6 Medical (six) Branch hours as needed for Pain (scale 7-10). methocarbam 2020- No [id number] 500mg Take 1 Univers ol 9-20 02-09 tablet by ity of (ROBAXIN) 00:00: 00:00 mouth 4 [place] 500 mg 00 :00 (four) Medical tablet times Branch daily as needed (MUSCLE SPASM). promethazin Yes [id number] 5mL Take 5 mL Univers e-codeine 6-09 by mouth 4 ity of 6.25-10 00:00: (four) [place] mg/5 mL 00 times Medical syrup daily as Branch needed for Cough. loratadine Yes [id number] 10mg Take 1 U nivers 10 mg 6-09 tablet by ity of tablet 00:00: mouth [place] 00 daily. Medical Branch sod Yes [id number] 1{bottl Use 1 Unive rs chlor-bicar 6-09 e} Bottle in ity of b-squeez 00:00: each [place] bottle 00 nostril 2 Medical (NEILMED (two) Branch SINUS RINSE times COMPLETE) daily. Use pkdv in hot shower 1 hour before bedtime promethazin Yes [id number] 5mL Take 5 mL Univers e-codeine 6-09 by mouth 4 ity of 6.25-10 00:00: (four) [place] mg/5 mL 00 times Medical syrup daily as Branch needed for Cough. loratadine Yes [id number] 10mg Take 1 U nivers 10 mg 6-09 tablet by ity of tablet 00:00: mouth [place] 00 daily. Medical Branch sod Yes [id number] 1{bottl Use 1 Unive rs chlor-bicar 6-09 e} Bottle in ity of b-squeez 00:00: each [place] bottle 00 nostril 2 Medical (NEILMED (two) Branch SINUS RINSE times COMPLETE) daily. Use pkdv in hot shower 1 hour before bedtime promethazin Yes [id number] 5mL Take 5 mL Univers e-codeine 6-09 by mouth 4 ity of 6.25-10 00:00: (four) [place] mg/5 mL 00 times Medical syrup daily as Branch needed for Cough. loratadine Yes [id number] 10mg Take 1 U nivers 10 mg 6-09 tablet by ity of tablet 00:00: mouth [place] 00 daily. Medical Branch sod Yes [id number] 1{bottl Use 1 Unive rs chlor-bicar 6-09 e} Bottle in ity of b-squeez 00:00: each [place] bottle 00 nostril 2 Medical (NEILMED (two) Branch SINUS RINSE times COMPLETE) daily. Use pkdv in hot shower 1 hour before bedtime promethazin Yes [id number] 5mL Take 5 mL Univers e-codeine 6-09 by mouth 4 ity of 6.25-10 00:00: (four) [place] mg/5 mL 00 times Medical syrup daily as Branch needed for Cough. loratadine Yes [id number] 10mg Take 1 U nivers 10 mg 6-09 tablet by ity of tablet 00:00: mouth [place] 00 daily. Medical Branch sod Yes [id number] 1{bottl Use 1 Unive rs chlor-bicar 6-09 e} Bottle in ity of b-squeez 00:00: each [place] bottle 00 nostril 2 Medical (NEILMED (two) Branch SINUS RINSE times COMPLETE) daily. Use pkdv in hot shower 1 hour before bedtime promethazin Yes [id number] 5mL Take 5 mL Univers e-codeine 6-09 by mouth 4 ity of 6.25-10 00:00: (four) [place] mg/5 mL 00 times Medical syrup daily as Branch needed for Cough. loratadine Yes [id number] 10mg Take 1 U nivers 10 mg 6-09 tablet by ity of tablet 00:00: mouth [place] 00 daily. Medical Branch sod Yes [id number] 1{bottl Use 1 Unive rs chlor-bicar 6-09 e} Bottle in ity of b-squeez 00:00: each [place] bottle 00 nostril 2 Medical (NEILMED (two) Branch SINUS RINSE times COMPLETE) daily. Use pkdv in hot shower 1 hour before bedtime methylPREDN Yes [id number] Take by Univers ISolone 2-03 mouth ity of (MEDROL, 00:00: SEE-INSTRU [place] as CHERRI,) 4 mg 00 CTIONS. Medica l tablets follow Branch package directions naproxen Yes [id number] 250mg Take 1 U nivers 250 mg 2-03 tablet by ity of tablet 00:00: mouth 2 [place] 00 (two) Medical times Branch daily with meals. traMADOL 2019-0 Yes [id number] 100mg Take 2 U nivers (ULTRAM) 50 2-03 tablets by it y of mg tablet 00:00: mouth 00 every 6 Medical (six) Branch hours as needed for Pain (scale 4-6). methylPREDN 2019-0 Yes [id number] Take by Univers ISolone 2-03 mouth ity of (MEDROL, 00:00: SEE-INSTRU [place] as CHERRI,) 4 mg 00 CTIONS. Medica l tablets follow Branch package directions naproxen 2019-0 Yes [id number] 250mg Take 1 U nivers 250 mg 2-03 tablet by ity of tablet 00:00: mouth 2 (two) Medical times Branch daily with meals. methylPREDN 2019-0 Yes [id number] Take by Univers ISolone 2-03 mouth ity of (MEDROL, 00:00: SEE-INSTRU [place] as CHERRI,) 4 mg 00 CTIONS. Medica l tablets follow Branch package directions naproxen 2019-0 Yes [id number] 250mg Take 1 U nivers 250 mg 2-03 tablet by ity of tablet 00:00: mouth (two) Medical times Branch daily with meals. methylPREDN 2019-0 Yes [id number] Take by Univers ISolone 2-03 mouth ity of (MEDROL, 00:00: SEE-INSTRU [place] as CHERRI,) 4 mg 00 CTIONS. Medica l tablets follow Branch package directions naproxen 2019-0 Yes [id number] 250mg Take 1 U nivers 250 mg 2-03 tablet by ity of tablet 00:00: mouth (two) Medical times Branch daily with meals. methylPREDN 2019-0 Yes [id number] Take by Univers ISolone 2-03 mouth ity of (MEDROL, 00:00: SEE-INSTRU [place] as [place]ERRI,) 4 mg 00 CTIONS. Medica l tablets follow Branch package directions naproxen 2019-0 Yes [id number] 250mg Take 1 U nivers 250 mg 2-03 tablet by ity of tablet 00:00: mouth 2 (two) Medical times Branch daily with meals. traMADOL 2019-0 Yes [id number] 100mg Take 2 U nivers (ULTRAM) 50 2-03 tablets by it y of mg tablet 00:00: mouth [place] 00 every 6 Medical (six) Branch hours as needed for Pain (scale 4-6). traMADOL 2020- No [id number] 100mg Take 2 Univers (ULTRAM) 50 2-03 02-09 tablets by i ty of mg tablet 00:00: 00:00 mouth [place] 00 :00 every 6 Medical (six) Branch hours as needed for Pain (scale 4-6). traMADOL 2017-03 Yes 50mg Take 1 Univers (ULTRAM) 50 2-21 tablet by ity of mg tablet 00:00: mouth [place] 00 every 6 Medical (six) Branch hours as needed for Pain (scale 4-6). traMADOL 2017-03 Yes 50mg Take 1 Univers (ULTRAM) 50 2-21 tablet by ity of mg tablet 00:00: mouth [place] 00 every 6 Medical (six) Branch hours as needed for Pain (scale 4-6). traMADOL 2017-03- No 50mg Take 1 Univer s (ULTRAM) 50 2-21 02-09 tablet by it y of mg tablet 00:00: 00:00 mouth [place] 00 :00 every 6 Medical (six) Branch hours as needed for Pain (scale 4-6). lidocaine 5 Yes APPLY ONE U nivers % (700 9-23 PATCH TO ity of mg/patch) 00:00: MOST [place] patch 00 PAINFUL Medical AREA EVERY Branch 12 HOURS NEEDED FOR PAIN. PHARMACIST : DISPENSE ONE BOX. lidocaine 5 Yes APPLY ONE U nivers % (700 9-23 PATCH TO ity of mg/patch) 00:00: MOST [place] patch 00 PAINFUL Medical AREA EVERY Branch 12 HOURS NEEDED FOR PAIN. PHARMACIST : DISPENSE ONE BOX. lidocaine 5 Yes APPLY ONE U nivers % (700 9-23 PATCH TO ity of mg/patch) 00:00: MOST [place] patch 00 PAINFUL Medical AREA EVERY Branch 12 HOURS NEEDED FOR PAIN. PHARMACIST : DISPENSE ONE BOX. lidocaine 5 Yes APPLY ONE U nivers % (700 9-23 PATCH TO ity of mg/patch) 00:00: MOST [place] patch 00 PAINFUL Medical AREA EVERY Branch 12 HOURS NEEDED FOR PAIN. PHARMACIST : DISPENSE ONE BOX. lidocaine 5 Yes APPLY ONE U nivers % (700 9-23 PATCH TO ity of mg/patch) 00:00: MOST [place] patch 00 PAINFUL Medical AREA EVERY Branch 12 HOURS NEEDED FOR PAIN. PHARMACIST : DISPENSE ONE BOX. pregabalin 2017-0 Yes 100mg Take 100 Un kiley (LYRICA) 7-10 mg by ity of 100 mg 19:51: mouth 3 [place] capsule 40 (three) Medical times Branch daily. pregabalin 2017-0 Yes 100mg Take 100 Un kiley (LYRICA) 7-10 mg by ity of 100 mg 19:51: mouth 3 [place] capsule 40 (three) Medical times Branch daily. pregabalin 2017-0 Yes 100mg Take 100 Un kiley (LYRICA) 7-10 mg by ity of 100 mg 19:51: mouth 3 [place] capsule 40 (three) Medical times Branch daily. pregabalin 2017-0 Yes 100mg Take 100 Un kiley (LYRICA) 7-10 mg by ity of 100 mg 19:51: mouth 3 [place] capsule 40 (three) Medical times Branch daily. pregabalin 2017-0 Yes 100mg Take 100 Un kiley (LYRICA) 7-10 mg by ity of 100 mg 19:51: mouth 3 [place] capsule 40 (three) Medical times Branch daily. Wheel Chair Yes Use as Univ ers [place] 6-24 directed ity of 00:00: Medical [facility] Chair 2016-0 Yes Use as Univ ers [place] 6-24 directed ity of 00:00: Medical Branch [facility] Chair 2016-0 Yes Use as Univ ers [place] 6-24 directed ity of 00:00: Medical [facility] Chair 2016-0 Yes Use as Univ ers [place] 6-24 directed ity of 00:00: Medical [facility] Chair 2016-0 Yes Use as Univ ers [place] 6-24 directed ity of 00:00: Medical Branch SERTraline 2016-0 Yes TK 1 T PO Un kiley 50 mg 4-25 D ity of tablet 00:00: Medical Branch SERTraline 2016-0 Yes TK 1 T PO Un kiley 50 mg 4-25 D ity of tablet 00:00: Medical Branch SERTraline 2016-0 Yes TK 1 T PO Un kiley 50 mg 4-25 D ity of tablet 00:00: Medical Branch SERTraline 2016-0 Yes TK 1 T PO Un kiley 50 mg 4-25 D ity of tablet 00:00: Medical Branch SERTraline Yes TK 1 T PO Un kiley 50 mg 4-25 D ity of tablet 00:00: [place] 00 Medical Branch losartan 25 2016-0 Yes Univer s mg tablet 4-10 ity of 00:00: [place] [facility] losartan 25 2017-0 Yes Univer s mg tablet 4-10 ity of 00:00: [place] [facility] losartan 25 2017-0 Yes Univer s mg tablet 4-10 ity of 00:00: [place] [facility] losartan 25 Yes Univer s mg tablet 4-10 ity of 00:00: [place] [facility] losartan 25 Yes Univer s mg tablet 4-10 ity of 00:00: 00 Medical Branch pantoprazol 0 Yes TK 1 T PO U nivers e 8-26 QD ity of (PROTONIX) 00:00: [place] 40 mg EC 00 Medical tablet Branch pantoprazol Yes TK 1 T PO U nivers e 8-26 QD ity of (PROTONIX) 00:00: [place] 40 mg EC 00 Medical tablet Branch pantoprazol 0 Yes TK 1 T PO U nivers e 8-26 QD ity of (PROTONIX) 00:00: [place] 40 mg EC 00 Medical tablet Branch pantoprazol 0 Yes TK 1 T PO U nivers e 8-26 QD ity of (PROTONIX) 00:00: [place] 40 mg EC 00 Medical tablet Branch pantoprazol 0 Yes TK 1 T PO U nivers e 8-26 QD ity of (PROTONIX) 00:00: [place] 40 mg EC 00 Medical tablet Branch traMADOL Yes TAKE 1 Univers (ULTRAM) 50 8-18 TABLET BY ity of mg tablet 00:00: MOUTH [place] 00 EVERY 4 Medical HOURS Branch NEEDED FOR PAIN traMADOL Yes TAKE 1 Univers (ULTRAM) 50 8-18 TABLET BY ity of mg tablet 00:00: MOUTH [place] 00 EVERY 4 Medical HOURS Branch NEEDED FOR PAIN traMADOL 2020- No TAKE 1 Univer s (ULTRAM) 50 8-18 02-09 TABLET BY it y of mg tablet 00:00: 00:00 MOUTH [place] 00 :00 EVERY 4 Medical HOURS Branch NEEDED FOR PAIN promethazin Yes TK 5 ML PO Univers e-dextromet 8-12 Q 12 H ity of horphan 00:00: PRN. [place] (PROMETHAZI 00 Medical NE-DM) Branch 6.25-15 mg/5 mL syrup promethazin 2015- Yes TK 5 ML PO Univers e-dextromet 8-12 Q 12 H ity of horphan 00:00: PRN. [place] (PROMETHAZI 00 Medical NE-DM) Branch 6.25-15 mg/5 mL syrup promethazin Yes TK 5 ML PO Univers e-dextromet 8-12 Q 12 H ity of horphan 00:00: PRN. [place] (PROMETHAZI 00 Medical NE-DM) Branch 6.25-15 mg/5 mL syrup promethazin Yes TK 5 ML PO Univers e-dextromet 8-12 Q 12 H ity of horphan 00:00: PRN. [place] (PROMETHAZI 00 Medical NE-DM) Branch 6.25-15 mg/5 mL syrup promethazin Yes TK 5 ML PO Univers e-dextromet 8-12 Q 12 H ity of horphan 00:00: PRN. [place] (PROMETHAZI 00 Medical NE-DM) Branch 6.25-15 mg/5 mL syrup hydrochloro Yes TK 1 T PO U nivers thiazide 7-21 D ity of (HYDRODIURI 00:00: [place] L) 12.5 mg 00 Medical tablet Branch hydrochloro Yes TK 1 T PO U nivers thiazide 7-21 D ity of (HYDRODIURI 00:00: [place] L) 12.5 mg 00 Medical tablet Branch hydrochloro Yes TK 1 T PO U nivers thiazide 7-21 D ity of (HYDRODIURI 00:00: [place] L) 12.5 mg 00 Medical tablet Branch hydrochloro Yes TK 1 T PO U nivers thiazide 7-21 D ity of (HYDRODIURI 00:00: [place] L) 12.5 mg 00 Medical tablet Branch hydrochloro Yes TK 1 T PO U nivers thiazide 7-21 D ity of (HYDRODIURI 00:00: [place] L) 12.5 mg 00 Medical tablet Branch HYDROcodone Yes TAKE 1 Univ ers -acetaminop 7-14 TABLET BY ity of hen (NORCO) 00:00: MOUTH 4 [place] as 10-325 mg 00 TIMES A Medical tablet DAY Branch HYDROcodone Yes TAKE 1 Univ ers -acetaminop 7-14 TABLET BY ity of hen ([employer]) 00:00: MOUTH 4 [place] as 10-325 mg 00 TIMES A Medical tablet DAY Branch HYDROcodone Yes TAKE 1 Univ ers -acetaminop 7-14 TABLET BY ity of hen ([employer]) 00:00: MOUTH 4 [place] as 10-325 mg 00 TIMES A Medical tablet DAY Branch HYDROcodone Yes TAKE 1 Univ ers -acetaminop 7-14 TABLET BY ity of hen ([employer]) 00:00: MOUTH 4 [place] as 10-325 mg 00 TIMES A Medical tablet DAY Branch HYDROcodone Yes TAKE 1 Univ ers -acetaminop 7-14 TABLET BY ity of hen ([employer]) 00:00: MOUTH 4 [place] as 10-325 mg 00 TIMES A Medical tablet DAY Branch hydrocortis Yes SUKHJINDER THIN Un kiley one 2.5 % 6-17 LAYER AA 2 ity of lotion 00:00: TO 3 [place] 00 TIMES Medical DAILY Branch hydrocortis Yes SUKHJINDER THIN Un kiley one 2.5 % 6-17 LAYER AA 2 ity of lotion 00:00: TO 3 [place] 00 TIMES Medical DAILY Branch hydrocortis Yes SUKHJINDER THIN Un kiley one 2.5 % 6-17 LAYER AA 2 ity of lotion 00:00: TO 3 [place] 00 TIMES Medical DAILY Branch hydrocortis Yes SUKHJINDER THIN Un kiley one 2.5 % 6-17 LAYER AA 2 ity of lotion 00:00: TO 3 [place] 00 TIMES Medical DAILY Branch hydrocortis Yes SUKHJINDER THIN Un kiley one 2.5 % 6-17 LAYER AA 2 ity of lotion 00:00: TO 3 [place] 00 TIMES Medical DAILY Branch JANUMET XR Yes Univers 50-1,000 mg 5-10 ity of per tablet 00:00: [place] 00 Medical Branch JANUMET XR 0 Yes Univers 50-1,000 mg 5-10 ity of per tablet 00:00: [place] 00 Medical Branch JANUMET XR 0 Yes Univers 50-1,000 mg 5-10 ity of per tablet 00:00: [place] 00 Medical Branch JANUMET XR Yes Univers 50-1,000 mg 5-10 ity of per tablet 00:00: [place] [facility] JANUMET XR 0 Yes Univers 50-1,000 mg 5-10 ity of per tablet 00:00: [place] [facility] glipiZIDE Yes Univers (GLUCOTROL) 5-09 ity of 5 mg tablet 00:00: [place] [facility] VESICARE 5 Yes 5mg Take 5 mg Un kiley mg tablet 5-09 by mouth ity of 00:00: daily. [place] [facility] glipiZIDE Yes Univers (GLUCOTROL) 5-09 ity of 5 mg tablet 00:00: [place] [facility] VESICARE 5 Yes 5mg Take 5 mg Un kiley mg tablet 5-09 by mouth ity of 00:00: daily. [place] [facility] glipiZIDE Yes Univers (GLUCOTROL) 5-09 ity of 5 mg tablet 00:00: [place] [facility] VESICARE 5 Yes 5mg Take 5 mg Un kiley mg tablet 5-09 by mouth ity of 00:00: daily. [place] [facility] glipiZIDE Yes Univers (GLUCOTROL) 5-09 ity of 5 mg tablet 00:00: [place] [facility] VESICARE 5 Yes 5mg Take 5 mg Un kiley mg tablet 5-09 by mouth ity of 00:00: daily. [place] [facility] glipiZIDE Yes Univers (GLUCOTROL) 5-09 ity of 5 mg tablet 00:00: [place] [facility] VESICARE 5 Yes 5mg Take 5 mg Un kiely mg tablet 5-09 by mouth ity of 00:00: daily. [place] [facility] VENTOLIN Yes Univers HFA 90 4-19 ity of mcg/actuati 00:00: [place] on inhaler Medical [place] VENTOLIN Yes Univers HFA 90 4-19 ity of mcg/actuati 00:00: [place] on inhaler Medical [place] VENTOLIN Yes Univers HFA 90 4-19 ity of mcg/actuati 00:00: [place] on inhaler Medical [place] VENTOLIN 2016-0 Yes Univers HFA 90 4-19 ity of mcg/actuati 00:00: [place] on inhaler 00 Medical Branch VENTOLIN 2016-0 Yes Univers HFA 90 4-19 ity of mcg/actuati 00:00: [place] on inhaler 00 Medical Branch FREESTYLE 2016-0 Yes Univers LITE STRIPS 4-05 ity of strip 00:00: [place] 00 Medical Branch FREESTYLE 2016-0 Yes Univers LITE METER 4-05 ity of Kit 00:00: [place] 00 Medical Branch FREESTYLE 2016-0 Yes Univers LITE STRIPS 4-05 ity of strip 00:00: [place] 00 Medical Branch FREESTYLE 2016-0 Yes Univers LITE METER 4-05 ity of Kit 00:00: [place] 00 Medical Branch FREESTYLE 2016-0 Yes Univers LITE STRIPS 4-05 ity of strip 00:00: [place] 00 Medical Branch FREESTYLE 2016-0 Yes Univers LITE METER 4-05 ity of Kit 00:00: [place] 00 Medical Branch FREESTYLE 2016-0 Yes Univers LITE STRIPS 4-05 ity of strip 00:00: [place] 00 Medical Branch FREESTYLE 2016-0 Yes Univers LITE METER 4-05 ity of Kit 00:00: [place] 00 Medical Branch FREESTYLE 2016-0 Yes Univers LITE STRIPS 4-05 ity of strip 00:00: [place] 00 Medical Branch FREESTYLE 2016-0 Yes Univers LITE METER 4-05 ity of Kit 00:00: [place] 00 Medical Branch montelukast 2016-0 Yes Univer s (SINGULAIR) 3-22 ity of 10 mg 00:00: [place] tablet 00 Medical Branch montelukast 2016-0 Yes Univer s (SINGULAIR) 3-22 ity of 10 mg 00:00: [place] tablet 00 Medical Branch montelukast 2016-0 Yes Univer s (SINGULAIR) 3-22 ity of 10 mg 00:00: [place] tablet 00 Medical Branch montelukast 2016-0 Yes Univer s (SINGULAIR) 3-22 ity of 10 mg 00:00: [place] tablet 00 Medical Branch montelukast 2016-0 Yes Univer s (SINGULAIR) 3-22 ity of 10 mg 00:00: [place] tablet 00 Medical Branch Vital Signs Vital Name Observation Time Observation Value Comments Source Systolic blood 2020-10-29 17:17:00 147 mm[Hg] Univer sity of pressure [place] [facility] Diastolic blood 2020-10-29 17:17:00 75 mm[Hg] Unive rsity of pressure [place] [facility] Heart rate 2020-10-29 17:17:00 84 /min [facility] [place] [facility] Body temperature 2020-10-29 17:17:00 37 Betzy Univ ersity of [place] [facility] Respiratory rate 2020-10-29 17:17:00 16 /min [facility] [place] [facility] Body weight 2020-10-29 17:17:00 64.411 kg [facility] [place] [facility] BMI 2020-10-29 17:17:00 25.97 kg/m2 [facility] [place] [facility] Oxygen saturation in 2020-10-29 17:17:00 98 /min University of Arterial blood by [employer] Pulse oximetry Branch Systolic blood 2019-04-10 17:00:00 95 mm[Hg] Univer sity of pressure [place] [facility] Diastolic blood 2019-04-10 17:00:00 83 mm[Hg] Unive rsity of pressure [place] [facility] Heart rate 2019-04-10 17:00:00 94 /min [facility] [place] [facility] Respiratory rate 2019-04-10 17:00:00 18 /min [facility] ersity [facility] [place] [facility] Oxygen saturation in 2019-04-10 17:00:00 97 /min University of Arterial blood by [employer] Pulse oximetry Branch Body temperature 2019-04-10 15:10:00 38.28 Betzy Univ ersity of [facility] Body weight 2019-04-10 15:06:00 68.493 kg [facility] BMI 2019-04-10 15:06:00 27.62 kg/m2 [facility] Systolic blood 2019-04-10 17:00:00 95 mm[Hg] [facility] Diastolic blood 2019-04-10 17:00:00 83 mm[Hg] [facility] Heart rate 2019-04-10 17:00:00 94 /min [facility] Respiratory rate 2019-04-10 17:00:00 18 /min [facility] Oxygen saturation in 2019-04-10 17:00:00 97 /min [facility] Arterial blood by [facility] Pulse oximetry Branch Body temperature 2019-04-10 15:10:00 38.28 Betzy [facility] Body weight 2019-04-10 15:06:00 68.493 kg [facility] BMI 2019-04-10 15:06:00 27.62 kg/m2 [facility] Systolic blood 2018-11-19 19:00:00 150 mm[Hg] [facility] Diastolic blood 2018-11-19 19:00:00 70 mm[Hg] [facility] Heart rate 2018-11-19 19:00:00 67 /min [facility] Respiratory rate 2018-11-19 19:00:00 16 /min [facility] Oxygen saturation in 2018-11-19 19:00:00 99 /min [facility] Arterial blood by [facility] Pulse oximetry Branch Body temperature 2018-11-19 16:22:00 36.94 Betzy [facility] Branch Body weight 2018-11-19 16:22:00 71.668 kg [facility] BMI 2018-11-19 16:22:00 28.90 kg/m2 [facility] Systolic blood 2018-11-19 19:00:00 150 mm[Hg] [facility] Diastolic blood 2018-11-19 19:00:00 70 mm[Hg] [facility] Heart rate 2018-11-19 19:00:00 67 /min [facility] Respiratory rate 2018-11-19 19:00:00 16 /min [facility] Oxygen saturation in 2018-11-19 19:00:00 99 /min [facility] Arterial blood by [facility] Pulse oximetry Branch Body temperature 2018-11-19 16:22:00 36.94 Betzy [facility] Body weight 2018-11-19 16:22:00 71.668 kg [facility] BMI 2018-11-19 16:22:00 28.90 kg/m2 [facility] Procedures Procedure Date / Time Performing Clinician Source Performed XR SHOULDER 2+ VW RIGHT 2020-10-29 18:31:55 Shweta Kaur [facility] ASSIGNMENT OF BENEFITS 2020-10-29 18:07:13 Doctor Unassigned, No [facility] Name [facility] XR CHEST 1 VW 2019-04-10 16:10:08 Johanna Oro [facility] TROPONIN I 2019-04-10 15:49:00 Johanna Oro [facility] HEPATIC FUNCTION PANEL 2019-04-10 15:49:00 Johanna Oro [facility] ([id number]) (ALB,T.PRO,BILI Medical Branch T,BU/BC,ALT,AST,ALK PHOS) BASIC METABOLIC PANEL 2019-04-10 15:49:00 Johanna Oro [facility] (NA, K, CL, CO2, Medical Branch GLUCOSE, BUN, CREATININE, CA) CBC WITH DIFFERENTIAL 2019-04-10 15:49:00 Johanna Oro [facility] URINALYSIS 2019-04-10 15:49:00 Johanna Oro [facility] EKG-12 LEAD 2019-04-10 15:44:22 Johanna Oro [facility] TROPONIN I 2018-11-19 17:52:00 Mercy Awad [facility] COMP. METABOLIC PANEL 2018-11-19 17:52:00 Mercy Awad [facility] ([id number]) [facility] CBC WITH DIFFERENTIAL 2018-11-19 17:52:00 Mercy Awad [facility] XR CHEST 1 VW 2018-11-19 17:45:40 Mercy Awad [facility] XR FOREARM 2 VW LEFT 2018-11-19 17:45:40 Mercy Awad [facility] XR HIPS 2 VW LEFT 2018-11-19 17:45:40 Mercy Awad [facility] XR HUMERUS 2 VW LEFT 2018-11-19 17:45:40 Mercy Awad [facility] XR KNEE <3 VW LEFT 2018-11-19 17:45:[address] [facility] XR PELVIS <3 VW 2018-11-19 17:45:40 Mercy Awad [facility] EKG-12 LEAD 2018-11-19 16:44:40 Mercy Awad [facility] CONSENT/REFUSAL FOR 2018-11-19 16:14:22 Doctor Unassigned, No Un [facility] DIAGNOSIS AND TREATMENT Name Medical Branch Encounters Start End Encounter Admission Attending Care Care Encounter Source Date/Time Date/Time Type Type Clinicians Facility Department ID 2021-02-04 2021-02-04 Outpatient MARK [facility] [id number] [place] 00:00:00 00:00:00 HIRAM 898 Method i 2021-02-04 2021-02-04 Outpatient MARK [facility] [id number] [place] 00:00:00 00:00:00 HIRAM 904 Method i 2020-10-29 2020-10-29 Emergency [facility] [id number] [facility] 12:18:00 15:33:00 Shweta Allison [id number] i ty [facility] 4.2.7.2.686 [facility] [id number] [place] [address] Branch 2020-10-29 2020-10-29 Emergency X [facility] ERT [id number] [facility] 12:18:00 15:33:00 SHWETA murray [facility] 2019-11-10 2019-11-10 Outpatient OSWALDOVIVIAN [facility] [id number] [place] 00:00:00 00:00:00 DONNA 647 Method i 2019-11-10 2019-11-10 Outpatient PANCHO [facility] [id number] [place] 00:00:00 00:00:00 DONNA 646 Method i 2019-04-10 2019-04-10 Emergency [facility] [id number] 09:02:51 11:39:00 Johanna Allison [id number] [place] 4.2.7.2.686 [place] [id number] [facility] 2019-04-10 2019-04-10 Emergency [facility] [id number] [facility] 09:02:51 11:39:00 Johanna Allison [id number] ity of [place] 4.2.7.2.686 [facility] [id number] [address] 2019-04-10 2019-04-10 Emergency X PREETHI R[facility] ERT [id number] Univers 09:02:51 11:39:00 JOHANNA ity of [facility] 2019-02-20 2019-02-20 Emergency X MESSER RUST ERT [id number] Univers 09:05:17 11:00:00 LEVAR ity of [facility] 2019-02-08 2019-02-08 Emergency X RUST ERT [id number] Univers 15:17:07 15:56:00 ity of [facility] 2018-11-19 2018-11-19 Emergency KeylaItalo durbin RUST 1.2.840. [id number] 11:24:18 14:55:00 Mercy Awad [id number] [place] [address] [place] [address] [id number] [facility] 2018-11-19 2018-11-19 Emergency KeylaItalo durbinge RUST 1.2.840. [id number] Univers 11:24:18 14:55:00 Mercy Awad 350.1.13.10 ity of [place] 4.2.7.2.686 [facility] [phone] [address] 2018-11-19 2018-11-19 Orders Doctor HOPSON [id number] 00:00:00 00:00:00 Only Unassigned, DARYL 350.1.13.10 [place] [facility] 4.2.7.2.686 [id number] 2018-11-19 2018-11-19 Orders Doctor HOPSON [id number] Univers 00:00:00 00:00:00 Only Unassigned, DARYL 350.1.13.10 ity of [place] [facility] 4.2.7.2.686 [facility] [id number] [address] 2018-08-08 2018-08-08 Emergency X FREDDY SHELTON RUST ERT [id number] Univers 12:27:00 14:21:00 DOMINIC [facility] Results Test Test Test Results Result Source Description Time Comments Comments XR SHOULDER 2+ 2020-09- Impression: No evidence [facility]. Status post Branch acromioplasty. Large glenohumeral osteophytes. 6 mm chronicossification lateral to the humeral head. Chronic right rib fractures. RL: 781 History: right shoulder pain sp fall . Exam: XR SHOULDER 2+ VW RIGHT Date: 10/29/2020 1:15 PM Ordering provider: SHWETA KAUR Technical quality: Adequate Comparison: None available. Findings: Internally and externally rotated and transscapular views of theright shoulder are obtained. There are postsurgical changes suggestingacromioplasty. There are large glenohumeral osteophytes. Along the lateralmargin of the right humeral neck, there is a 6 mm well-corticated ossifieddensity. Severe generalized osteopenia is noted. No evidence of fracture ordislocation. Multiple, chronic appearing right-sided rib fractures arenoted. [facility], Radiant Results Inft User - 10/29/2020 1:44 PM CDT History: right shoulder pain sp fall .Exam: XR SHOULDER 2+ VW RIGHTDate: 10/29/2020 1:15 PMOrdering provider: SHWETA Muñoz quality: AdequateComparison: None available.Findings: Internally and externally rotated and transscapular views of theright shoulder are obtained. There are postsurgical changes suggestingacromioplasty. There are large glenohumeral osteophytes. Along the lateralmargin of the right humeral neck, there is a 6 mm well-corticated ossifieddensity. Severe generalized osteopenia is noted. No evidence of fracture ordislocation. Multiple, chronic appearing right-sided rib fractures arenoted.IMPRESSIONImpre ssion:No evidence of an acute fracture or dislocation.Status post acromioplasty. Large glenohumeral osteophytes. 6 mm chronicossification lateral to the humeral head.Chronic right rib fractures.RL: 781 SHOULDER 2+ 2020-09- Impression: No evidence University of VW RIGHT 30 [facility] an [facility] 18[facility] dislocation. Status post Branch acromioplasty. Large glenohumeral osteophytes. 6 mm chronicossification lateral to the humeral head. Chronic right rib fractures. RL: 781 History: right shoulder pain sp fall . Exam: XR SHOULDER 2+ VW RIGHT Date: 10/29/2020 1:15 PM Ordering provider: SHWETA KAUR Technical quality: Adequate Comparison: None available. Findings: Internally and externally rotated and transscapular views of theright shoulder are obtained. There are postsurgical changes suggestingacromioplasty. There are large glenohumeral osteophytes. Along the lateralmargin of the right humeral neck, there is a 6 mm well-corticated ossifieddensity. Severe generalized osteopenia is noted. No evidence of fracture ordislocation. Multiple, chronic appearing right-sided rib fractures arenoted. [facility], Radiant Results Inft User - 10/29/2020 1:44 PM CDT History: right shoulder pain sp fall .Exam: XR SHOULDER 2+ VW RIGHTDate: 10/29/2020 1:15 PMOrdering provider: SHWETA Muñoz quality: AdequateComparison: None available.Findings: Internally and externally rotated and transscapular views of theright shoulder are obtained. There are postsurgical changes suggestingacromioplasty. There are large glenohumeral osteophytes. Along the lateralmargin of the right humeral neck, there is a 6 mm well-corticated ossifieddensity. Severe generalized osteopenia is noted. No evidence of fracture ordislocation. Multiple, chronic appearing right-sided rib fractures arenoted.IMPRESSIONImpre ssion:No evidence of an acute fracture or dislocation.Status post acromioplasty. Large glenohumeral osteophytes. 6 mm chronicossification lateral to the humeral head.Chronic right rib fractures.RL: 781 WITH DIFFERENTIAL 2019-04-10 16:56:00 Test Item Value Reference Range Interpretation Comme nts WBC (test code = 6690-2) See_Comment H [A utomated message] The system which ge nerated this result transmit radha reference range: 4.30 - 1 1.10 10*3/?L. The reference r gomez was not used to interpr et this result as normal/abnor mal. RBC (test code = 789-8) See_Comment [Au tomated message] The system which ge nerated this result transmit radha reference range: 3.93 - 5 .25 10*6/?L. The reference r gomez was not used to interpr et this result as normal/abnor mal. HGB (test code = 718-7) 10.4 g/dL 11.6-15 L HCT (test code = 4544-3) 33.1 % 35.7-45.2 L MCV (test code = 787-2) 80.9 fL 80.6-95.5 MCH (test code = 785-6) 25.4 pg 25.9-32.8 L MCHC (test code = 786-4) 31.4 g/dL 31.6-35.1 L RDW-SD (test code = 53792-8) 45.6 fL 39-49.9 RDW-CV (test code = 788-0) 15.8 % 12-15.5 H PLT (test code = 777-3) See_Comment [Au tomated message] The system which ge nerated this result transmit radha reference range: 166 - 35 8 10*3/?L. The reference range was not used to interpret th is result as normal/abnormal . MPV (test code = 81348-8) 11.4 fL 9.5-12.9 NRBC/100 WBC (test code = See_Comment [ Automated message] The 3785022337) system which ge nerated this result transmit radha reference range: 0.0 - 10 .0 /100 WBCs. The reference r gomez was not used to interpr et this result as normal/abnor mal. NRBC x10^3 (test code = <0.01 See_Comment [Au tomated message] The 2518262932) system which ge nerated this result transmit radha reference range: 10*3/?L. The reference range was not u sed to interpret this result as normal/abnormal . GRAN MAT (NEUT) % (test code 79.9 % = 770-8) IMM GRAN % (test code = 0.50 % 3451683784) LYMPH % (test code = 736-9) 10.8 % MONO % (test code = 5905-5) 8.4 % EOS % (test code = 713-8) 0.1 % BASO % (test code = 706-2) 0.3 % GRAN MAT x10^3(ANC) (test 10.34 10*3/uL 1.88-7.09 H code = 7413626009) IMM GRAN x10^3 (test code = 0.06 10*3/uL 0-0.06 2600238159) LYMPH x10^3 (test code = 1.39 10*3/uL 1.32-3.29 731-0) MONO x10^3 (test code = 1.09 10*3/uL 0.33-0.92 H 742-7) EOS x10^3 (test code = <0.03 0.03-0.39 L 711-2) BASO x10^3 (test code = 0.04 10*3/uL 0.01-0.07 704-7) Lab Interpretation (test Abnormal code = 55439-3) [facility] 16:37[facility]00 Test Item Value Reference Range Interpretation Comments APPEARANCE (test code = Clear Clear 2027165723) COLOR (test code = Yellow Yellow 0920304957) PH (test code = 4.8-8.0 6853113222) SP GRAVITY (test code = 1.003-1.030 5257212565) GLU U QUAL (test code = Normal Normal 2405929049) BLOOD (test code = 1+ Negative A 0942234503) KETONES (test code = Negative Negative 6885956360) PROTEIN (test code = Negative Negative 2887-8) UROBILIN (test code = Normal Normal 6029497436) BILIRUBIN (test code = Negative Negative 5107134381) NITRITE (test code = Negative Negative 8842476944) LEUK [place] (test code = Negative Negative 0213070584) RBC/HPF (test code = See_Comment [Autom ated message] 6405980520) The system Loudie generated this result transmitted ref erence range: 0 - 3 HP F. The reference range was not used to int erpret this result as normal/abnormal . WBC/HPF (test code = See_Comment [Autom ated message] 5913475257) The system Loud[employer] generated this result transmitted ref erence range: 0 - 5 HP F. The reference range was not used to int erpret this result as normal/abnormal . BACTERIA (test code = Negative Negative 4787371188) MUCOUS (test code = Slight Negative LPF A 3661174650) SQ EPITH (test code = <1 HPF 7044843806) Lab Interpretation (test Abnormal code = 69235-0) [facility] [id number] 16:26:00 Test Item Value Reference Range Interpretation Comments TROPONIN I (test <0.012 See_Comment [Automated code = 4393114952) message] The system which generated this result transmitted reference range : <=0.034 ng/mL. The reference range was not used to interpr et this result as normal/abnormal . GABBY (test code = Equal or Less than GABBY) 0.034 ng/ml---Normal ?Note: Cardiac troponin begins to rise 3-4 hours after the onset of ischemia. Repeat in 4-6 hours if the sample was drawn within 3-4 hours of the onset of the symptom and found normal. Between 0.035 and 0.120 ng/mL--- Borderline. Questionable myocardial injury or necrosis ? ?Note: Serial measurement may be necessary to confirm or exclude the diagnosis of myocardial injury or necrosis; Clinical correlation (symptoms, EKGs, imaging studies, and others) required; Repeat in 4-6 hours if clinically indicated. ? Equal or Higher than 0.121 ng/mL---Abnormal. Myocardial Injury or Necrosis Likely ? Biotin has been reported to cause a negative bias, interpret results relative to patient's use of biotin. ? Lab Interpretation Normal (test code = 21111-5) [facility] 1 [id number] 16:21:36 No acute cardiopulmonary process. Preliminary Report Dictated by Resident: Helen Burnham MD., have reviewed this study and agree with theabove report.PROCEDURE: XR CHEST 1 VW CLINICAL INDICATION: chest pain COMPARISON: 02/20/2019 TECHNIQUE: A frontal view of the chest was obtained FINDINGS: No focal consolidation, pleural effusion, or pneumothorax. The cardiac silhouette is normal in size. No acute osseous abnormality. [facility], Radiant Results Inft User - 04/10/2019 10:22 AM CSTPROCEDURE: XR CHEST 1 VWCLINICAL INDICATION: chest pain COMPARISON: 02/20/2019TECHNIQUE: A frontal view of the chest was obtainedFINDINGS:No focal consolidation, pleural effusion, or pneumothorax. The cardiac silhouette is normal in size. No acute osseous abnormality. IMPRESSIONNo acute cardiopulmonary process.Preliminary Report Dictated by Resident: Helen Flores MD., have reviewed this study and agree with theabove report.[facility] (NA, K, CL, CO2, GLUCOSE, BUN, CREATININE, CA)2019-04-10 16:14:00 Test Item Value Reference Range Interpretation Comments NA (test code = 138 mmol/L 135-145 1663366533) K (test code = 3.7 mmol/L 3.5-5 3848301428) CL (test code = 102 mmol/L 98-108 5239962154) CO2 TOTAL (test code = 29 mmol/L 23-31 6359472632) AGAP (test code = 2-16 5706497538) BUN (test code = 10 mg/dL 7-23 6733955170) GLUCOSE (test code = 164 mg/dL 70-110 H 7607858803) CREATININE (test code = 0.46 mg/dL 0.5-1.04 L 3455965835) CALCIUM (test code = 9.4 mg/dL 8.6-10.6 3818366641) eGFR Calculation mL/min/1.73m2 (Non-) (test code = 4458547158) eGFR Calculation mL/min/1.73m2 () (test code = 9161796793) GABBY (test code = GABBY) Association of Glomerular Filtration Rate (GFR) and Staging of Kidney Disease* + --+ --+ ------+| GFR (mL/min/1.73 m2) ?| With Kidney Damage ?| ?Without Kidney Damage+ --------+ --------+ +| ?>90 ?| ?Stage one ?| ? Normal ?+ ---+ ---+ -------+| ?60-89 ?| ?Stage two ?| ? Decreased GFR ? + --+ --+ ------+| ?30-59 ?| ?Stage three ?| ? Stage three ? + --+ --+ ------+| ?15-29 ?| ?Stage four ? | ? Stage four ?+ ---+ ---+ -------+| ?<15 (or dialysis) ? ?| ?Stage five ? | ? Stage five ?+ ---+ ---+ -------+ *Each stage assumes the associated GFR level has been in effect for at least three months. ?Stages 1 to 5, with or without kidney disease, indicate chronic kidney disease. Notes: Determination of stages one and two (with eGFR >59mL/min/1.73 m2) requires estimation of kidney damage for at least three months as defined by structural or functional abnormalities of the kidney, manifested by either:Pathological abnormalities or Markers of kidney damage (including abnormalities in the composition of the blood or urine or abnormalities in imaging tests). Lab Interpretation Abnormal (test code = 01165-8) [facility] (ALB, T.PRO, BILI T, BU/BC, ALT, AST, ALK PHOS)2019-04-10 16:14:00 Test Item Value Reference Range Interpretation Comments TOTAL BILI (test code = 5934638040) 1.0 mg/dL 0.1-1.1 BILI UNCON (test code = 0405198623) 1.0 mg/dL 0.1-1.1 BILI CONJ (test code = 3783098620) 0.0 mg/dL 0-0.3 T PROTEIN (test code = 7406498608) 7.0 g/dL 6.3-8.2 ALBUMIN (test code = 6336343892) 4.1 g/dL 3.5-5 ALK PHOS (test code = 3748645085) 73 U/L 34-122 ALTv (test code = 1742-6) 15 U/L 5-35 AST(SGOT) (test code = 8346825223) 24 U/L 13-40 Lab Interpretation (test code = Normal 36215-4) [facility] CenterTROP[facility]IN [id number] 18:42:00 Test Item Value Reference Range Interpretation Comments TROPONIN I (test 0.001 ng/mL See_Comment [Automated code = 4643855078) message] The system which generated this result transmitted reference range : <=0.034. The reference range was not used to interpret this result as normal/abnormal . GABBY (test code = Equal or Less than GABBY) 0.034 ng/ml---Normal?Not e: Cardiac troponin begins to rise 3-4 hours after the onset of ischemia. Repeat in 4-6 hours if the sample was drawn within 3-4 hours of the onset of the symptom and found normal. Between 0.035 and 0.120 ng/mL--- Borderline. Questionable myocardial injury or necrosis?Note: Serial measurement may be necessary to confirm or exclude the diagnosis of myocardial injury or necrosis; Clinical correlation (symptoms, EKGs, imaging studies, and others) required; Repeat in 4-6 hours if clinically indicated.? Equal or Higher than 0.121 ng/mL---Abnormal. Myocardial Injury or Necrosis Likely? Biotin has been reported to cause a negative bias, interpret results relative to patient's use of biotin.? ? Lab Interpretation Normal (test code = 39445-8) [facility] Center[facility]. METABOLIC PANEL (53305)2018-11-19 18:30:00 Test Item Value Reference Range Interpretation Comments NA (test code = 144 mmol/L 135-145 6718611394) K (test code = 4.0 mmol/L 3.5-5 1973022570) CL (test code = 110 mmol/L 98-108 H 2665620987) CO2 TOTAL (test code = 27 mmol/L 23-31 2094756905) AGAP (test code = 2-16 2913111093) BUN (test code = 14 mg/dL 7-23 5238824186) GLUCOSE (test code = 110 mg/dL 70-110 3707274253) CREATININE (test code = 0.41 mg/dL 0.5-1.04 L 6394380742) TOTAL BILI (test code = 0.4 mg/dL 0.1-1.0 9812264438) CALCIUM (test code = 8.3 mg/dL 8.6-10.6 L 9910391183) T PROTEIN (test code = 6.6 g/dL 6.3-8.2 9187655099) ALBUMIN (test code = 3.7 g/dL 3.5-5 0720744340) ALK PHOS (test code = 79 U/L 34-122 6327434218) ALT(SGPT) (test code = 6 U/L 9-51 L 8519335594) AST(SGOT) (test code = 20 U/L 13-40 9551658907) eGFR Calculation mL/min/1.73m2 (Non-) (test code = 4683447007) eGFR Calculation mL/min/1.73m2 () (test code = 4196480150) GABBY (test code = GABBY) Association of Glomerular Filtration Rate (GFR) and Staging of Kidney Disease*+ + + +| GFR (mL/min/1.73 m2)?| With Kidney Damage?|?Without Kidney Damage+ --------+ --------+ +|?>90?|?S maricruze one?|? Normal?+ ---------+ ---------+ +|?60-89? |?Stage two?|? Decreased GFR? + --+ --+ ------+|?30-59?|?Stage three?|? Stage three? + --+ --+ ------+|?15-29??|?Stag e four? |? Stage four?+ -------+ -------+ +|?<15 (or dialysis)?|?Stage five? |? Stage five?+ -------+ -------+ +*Each stage assumes the associated GFR level has been in effect for at least three months.?Stages 1 to 5, with or without kidney disease, indicate chronic kidney disease.Notes: Determination of stages one and two (with eGFR >59mL/min/1.73 m2) requires estimation of kidney damage for at least three months as defined by structural or functional abnormalities of the kidney, manifested by either:Pathological abnormalities or Markers of kidney damage (including abnormalities in the composition of the blood or urine or abnormalities in imaging tests). Lab Interpretation Abnormal (test code = 42759-6) [facility] CenterXR HUMERUS 2 VW [id number] 18:29:11 Scattered osteoarthritic changes and crystalline deposition with no acutebony abnormalities. EXAM:XR HUMERUS 2 VW LEFT, EXAM: XR FOREARM 2 VW LEFT, EXAM: XR PELVIS <3 VW, EXAM: XR KNEE <3 VW LEFT, EXAM: XR HIPS 2 VW LEFT HISTORY: Fall with left arm pain COMPARISON: None FINDINGS: Imaging ofthe pelvis, knee and hip demonstrates intramedullary nailfixation of a healed right intertrochanteric fracture with chronicremodeling of the greater trochanter. There is moderate to severe bilateralfemoral acetabular joint space narrowing, subchondral sclerosis, marginalosteophyte formation with calcar buttressing. Linear crystalline depositionis seen adjacent to the bilateral hip joints within the gluteal andhamstring tendon complexes. Moderate to severe lumbosacral junctionspondylosis and facet arthropathy are seen. Chondrocalcinosis is seen atthe symphysis pubis. Scattered pelvic phleboliths areseen. Left total knee arthroplasty change is present with bulky corticalfragmentation about the femor al condyles. Cortical remodeling is seen aboutthe tibia at the level of the lateral tibial post. A small sized kneeeffusion is present. Chronic osseous fragmentation with focal cementextravasation are seen adjacent to the superior pole of the patella.Minimal paralleling perihardware lucency is seen about the tibialcomponent. 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 Mild tomoderate STT and thumb CMC jointspace loss with subchondral sclerosis and marginal osteophyte formation areseen. There is no effusion at the level of the elbow. There is dorsalsubcutaneous fat stranding along the proximal forearm. Radial head neckjunction and trochlear coronoid osteophyte formation are seen. There ismoderate acromioclavicular and glenohumeral joint space narrowing withmarginal osteophyte formation. Curvilinear crystalline deposition is seenat the level of the rotator cuff. Greater tuberosity degenerative cysticand sclerotic changes are seen. [facility], Radiant Results Inft User - 11/19/2018 1:29 PM CDTEXAM:XR HUMERUS 2 VW LEFT,EXAM:XR FOREARM 2 VW LEFT,EXAM:XR PELVIS <3 VW,EXAM:XRKNEE <3 VW LEFT,EXAM:XR HIPS 2 VW LEFTHISTORY:Fall with left arm pain COMPARISON:NoneFINDINGS: Imaging of the pelvis, knee and hip demonstrates intramedullary nailfixation of a healed right intertrochanteric fracture with chronicremodeling of the greater trochanter. There is moderate to severe bilat eralfemoral acetabular joint space narrowing, subchondral sclerosis, marginalosteophyte formation with calcar buttressing. Linear crystalline depositionis seen adjacent to the bilateral hip joints within the gluteal andhamstring tendon complexes. Moderate to severe lumbosacral junctionspondylosis and facet arthropathy are seen. Chondrocalcinosis is seen atthe symphysis pubis. Scattered pelvic phleboliths are seen.Left total knee arthroplasty change is present with bulky corticalfragmentation about the femoral condyles. Cortical remodeling is seen aboutthe tibia at the level of the lateral tibial post. A small sized kneeeffusion is present. Chronic osseous fragmentation with focal cementextravasation are seen adjacent to the superior pole of the patella.Minimal paralleling perihardware lucency is seen about the tibialcomponent.Images of the forearm and humerus demonstrate TFC chondrocalcinosis.Crystalline deposition is seen along the medial and lateral elbow jointline, at the AC joint capsule. Mild to moderate STT and thumb CMC jointspace loss with subchondral sclerosis and marginal osteophyte formation areseen. There is no effusion at the level of the elbow. There is dorsalsubcutaneous fat stranding along the proximal forearm. Radial head neckjunction and trochlear coronoid osteophyte formation are seen. There ismoderate acromioclavicular and glenohumeral joint space narrowing withmarginal osteophyte formation. Curvilinear crystalline deposition is seenat the level of the rotator cuff. Greater tuberosity degenerative cysticand sclerotic changes are seen. IMPRESSIONScattered osteoarthriticchanges and crystalline deposition with no acutebony abnormalities.[facility]W [id number] 18:29:11 Scattered osteoarthritic changes and crystalline deposition with no acutebony abnormalities. EXAM:XR HUMERUS 2 VW LEFT, EXAM: XR FOREARM 2 VW LEFT, EXAM: XR PELVIS <3 VW, EXAM: XR KNEE <3 VW LEFT, EXAM: XR HIPS 2 VW LEFT HISTORY: Fall with left arm pain COMPARISON: None FINDINGS: Imaging ofthe pelvis, knee and hip demonstrates intramedullary nailfixation of a healed right intertrochanteric fracture with chronicremodeling of the greater trochanter. There is moderate to severe bilateralfemoral acetabular joint space narrowing, subchondral sclerosis, marginalosteophyte formation with calcar buttressing. Linear crystalline depositionis seen adjacent to the bilateral hip joints within the gluteal andhamstring tendon complexes. Moderate to severe lumbosacral junctionspondylosis and facet arthropathy are seen. Chondrocalcinosis is seen atthe symphysis pubis. Scattered pelvic phleboliths areseen. Left total knee arthroplasty change is present with bulky corticalfragmentation about the femoral condyles. Cortical remodeling is seen aboutthe tibia at the level of the lateral tibial post. A small sized kneeeffusion is present. Chronic osseous fragmentation with focal cementextravasation are seen adjacent to the superior pole of the patella.Minimal paralleling perihardware lucency is seen about the tibialcomponent. 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 Mild tomoderate STT and thumb CMC jointspace loss with subchondral sclerosis and marginal osteophyte formation areseen. There is no effusion at the level of the elbow. There is dorsalsubcutaneous fat stranding along the proximal forearm. Radial head neckjunction and trochlear coronoid osteophyte formation are seen. There ismoderate acromioclavicular and glenohumeral joint space narrowing withmarginal osteophyte formation. Curvilinear crystalline deposition is seenat the level of the rotator cuff. Greater tuberosity degenerative cysticand sclerotic changes are seen. [facility], Radiant Results Inft User - 11/19/2018 1:29 PM CDTEXAM:XR HUMERUS 2 VW LEFT,EXAM:XR FOREARM 2 VW LEFT,EXAM:XR PELVIS <3 VW,EXAM:XRKNEE <3 VW LEFT,EXAM:XR HIPS 2 VW LEFTHISTORY:Fall with left arm pain COMPARISON:NoneFINDINGS: Imaging of the pelvis, knee and hip demonstrates intramedullary nailfixation of a healed right intertrochanteric fracture with chronicremodeling of the greater trochanter. There is moderate to severe bilat eralfemoral acetabular joint space narrowing, subchondral sclerosis, marginalosteophyte formation with calcar buttressing. Linear crystalline depositionis seen adjacent to the bilateral hip joints within the gluteal andhamstring tendon complexes. Moderate to severe lumbosacral junctionspondylosis and facet arthropathy are seen. Chondrocalcinosis is seen atthe symphysis pubis. Scattered pelvic phleboliths are seen.Left total knee arthroplasty change is present with bulky corticalfragmentation about the femoral condyles. Cortical remodeling is seen aboutthe tibia at the level of the lateral tibial post. A small sized kneeeffusion is present. Chronic osseous fragmentation with focal cementextravasation are seen adjacent to the superior pole of the patella.Minimal paralleling perihardware lucency is seen about the tibialcomponent.Images of the forearm and humerus demonstrate TFC chondrocalcinosis.Crystalline deposition is seen along the medial and lateral elbow jointline, at the AC joint capsule. Mild to moderate STT and thumb CMC jointspace loss with subchondral sclerosis and marginal osteophyte formation areseen. There is no effusion at the level of the elbow. There is dorsalsubcutaneous fat stranding along the proximal forearm. Radial head neckjunction and trochlear coronoid osteophyte formation are seen. There ismoderate acromioclavicular and glenohumeral joint space narrowing withmarginal osteophyte formation. Curvilinear crystalline deposition is seenat the level of the rotator cuff. Greater tuberosity degenerative cysticand sclerotic changes are seen. IMPRESSIONScattered osteoarthriticchanges and crystalline deposition with no acutebony abnormalities.[facility]3 [id number] 18:29:11 Scattered osteoarthritic changes and crystalline deposition with no acutebony abnormalities. EXAM:XR HUMERUS 2 VW LEFT, EXAM: XR FOREARM 2 VW LEFT, EXAM: XR PELVIS <3 VW, EXAM: XR KNEE <3 VW LEFT, EXAM: XR HIPS 2 VW LEFT HISTORY: Fall with left arm pain COMPARISON: None FINDINGS: Imaging ofthe pelvis, knee and hip demonstrates intramedullary nailfixation of a healed right intertrochanteric fracture with chronicremodeling of the greater trochanter. There is moderate to severe bilateralfemoral acetabular joint space narrowing, subchondral sclerosis, marginalosteophyte formation with calcar buttressing. Linear crystalline depositionis seen adjacent to the bilateral hip joints within the gluteal andhamstring tendon complexes. Moderate to severe lumbosacral junctionspondylosis and facet arthropathy are seen. Chondrocalcinosis is seen atthe symphysis pubis. Scattered pelvic phleboliths areseen. Left total knee arthroplasty change is present with bulky corticalfragmentation about the femoral condyles. Cortical remodeling is seen aboutthe tibia at the level of the lateral tibial post. A small sized kneeeffusion is present. Chronic osseous fragmentation with focal cementextravasation are seen adjacent to the superior pole of the patella.Minimal paralleling perihardware lucency is seen about the tibialcomponent. 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 Mild tomoderate STT and thumb CMC jointspace loss with subchondral sclerosis and marginal osteophyte formation areseen. There is no effusion at the level of the elbow. There is dorsalsubcutaneous fat stranding along the proximal forearm. Radial head neckjunction and trochlear coronoid osteophyte formation are seen. There ismoderate acromioclavicular and glenohumeral joint space narrowing withmarginal osteophyte formation. Curvilinear crystalline deposition is seenat the level of the rotator cuff. Greater tuberosity degenerative cysticand sclerotic changes are seen. [facility], Radiant Results Inft User - 11/19/2018 1:29 PM CDTEXAM:XR HUMERUS 2 VW LEFT,EXAM:XR FOREARM 2 VW LEFT,EXAM:XR PELVIS <3 VW,EXAM:XRKNEE <3 VW LEFT,EXAM:XR HIPS 2 VW LEFTHISTORY:Fall with left arm pain COMPARISON:NoneFINDINGS: Imaging of the pelvis, knee and hip demonstrates intramedullary nailfixation of a healed right intertrochanteric fracture with chronicremodeling of the greater trochanter. There is moderate to severe bilat eralfemoral acetabular joint space narrowing, subchondral sclerosis, marginalosteophyte formation with calcar buttressing. Linear crystalline depositionis seen adjacent to the bilateral hip joints within the gluteal andhamstring tendon complexes. Moderate to severe lumbosacral junctionspondylosis and facet arthropathy are seen. Chondrocalcinosis is seen atthe symphysis pubis. Scattered pelvic phleboliths are seen.Left total knee arthroplasty change is present with bulky corticalfragmentation about the femoral condyles. Cortical remodeling is seen aboutthe tibia at the level of the lateral tibial post. A small sized kneeeffusion is present. Chronic osseous fragmentation with focal cementextravasation are seen adjacent to the superior pole of the patella.Minimal paralleling perihardware lucency is seen about the tibialcomponent.Images of the forearm and humerus demonstrate TFC chondrocalcinosis.Crystalline deposition is seen along the medial and lateral elbow jointline, at the AC joint capsule. Mild to moderate STT and thumb CMC jointspace loss with subchondral sclerosis and marginal osteophyte formation areseen. There is no effusion at the level of the elbow. There is dorsalsubcutaneous fat stranding along the proximal forearm. Radial head neckjunction and trochlear coronoid osteophyte formation are seen. There ismoderate acromioclavicular and glenohumeral joint space narrowing withmarginal osteophyte formation. Curvilinear crystalline deposition is seenat the level of the rotator cuff. Greater tuberosity degenerative cysticand sclerotic changes are seen. IMPRESSIONScattered osteoarthriticchanges and crystalline deposition with no acutebony abnormalities.[facility]3 VW [id number] 18:29:11 Scattered osteoarthritic changes and crystalline deposition with no acutebony abnormalities. EXAM:XR HUMERUS 2 VW LEFT, EXAM: XR FOREARM 2 VW LEFT, EXAM: XR PELVIS <3 VW, EXAM: XR KNEE <3 VW LEFT, EXAM: XR HIPS 2 VW LEFT HISTORY: Fall with left arm pain COMPARISON: None FINDINGS: Imaging ofthe pelvis, knee and hip demonstrates intramedullary nailfixation of a healed right intertrochanteric fracture with chronicremodeling of the greater trochanter. There is moderate to severe bilateralfemoral acetabular joint space narrowing, subchondral sclerosis, marginalosteophyte formation with calcar buttressing. Linear crystalline depositionis seen adjacent to the bilateral hip joints within the gluteal andhamstring tendon complexes. Moderate to severe lumbosacral junctionspondylosis and facet arthropathy are seen. Chondrocalcinosis is seen atthe symphysis pubis. Scattered pelvic phleboliths areseen. Left total knee arthroplasty change is present with bulky corticalfragmentation about the femoral condyles. Cortical remodeling is seen aboutthe tibia at the level of the lateral tibial post. A small sized kneeeffusion is present. Chronic osseous fragmentation with focal cementextravasation are seen adjacent to the superior pole of the patella.Minimal paralleling perihardware lucency is seen about the tibialcomponent. 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 Mild tomoderate STT and thumb CMC jointspace loss with subchondral sclerosis and marginal osteophyte formation areseen. There is no effusion at the level of the elbow. There is dorsalsubcutaneous fat stranding along the proximal forearm. Radial head neckjunction and trochlear coronoid osteophyte formation are seen. There ismoderate acromioclavicular and glenohumeral joint space narrowing withmarginal osteophyte formation. Curvilinear crystalline deposition is seenat the level of the rotator cuff. Greater tuberosity degenerative cysticand sclerotic changes are seen. [facility], Radiant Results Inft User - 11/19/2018 1:29 PM CDTEXAM:XR HUMERUS 2 VW LEFT,EXAM:XR FOREARM 2 VW LEFT,EXAM:XR PELVIS <3 VW,EXAM:XRKNEE <3 VW LEFT,EXAM:XR HIPS 2 VW LEFTHISTORY:Fall with left arm pain COMPARISON:NoneFINDINGS: Imaging of the pelvis, knee and hip demonstrates intramedullary nailfixation of a healed right intertrochanteric fracture with chronicremodeling of the greater trochanter. There is moderate to severe bilat eralfemoral acetabular joint space narrowing, subchondral sclerosis, marginalosteophyte formation with calcar buttressing. Linear crystalline depositionis seen adjacent to the bilateral hip joints within the gluteal andhamstring tendon complexes. Moderate to severe lumbosacral junctionspondylosis and facet arthropathy are seen. Chondrocalcinosis is seen atthe symphysis pubis. Scattered pelvic phleboliths are seen.Left total knee arthroplasty change is present with bulky corticalfragmentation about the femoral condyles. Cortical remodeling is seen aboutthe tibia at the level of the lateral tibial post. A small sized kneeeffusion is present. Chronic osseous fragmentation with focal cementextravasation are seen adjacent to the superior pole of the patella.Minimal paralleling perihardware lucency is seen about the tibialcomponent.Images of the forearm and humerus demonstrate TFC chondrocalcinosis.Crystalline deposition is seen along the medial and lateral elbow jointline, at the AC joint capsule. Mild to moderate STT and thumb CMC jointspace loss with subchondral sclerosis and marginal osteophyte formation areseen. There is no effusion at the level of the elbow. There is dorsalsubcutaneous fat stranding along the proximal forearm. Radial head neckjunction and trochlear coronoid osteophyte formation are seen. There ismoderate acromioclavicular and glenohumeral joint space narrowing withmarginal osteophyte formation. Curvilinear crystalline deposition is seenat the level of the rotator cuff. Greater tuberosity degenerative cysticand sclerotic changes are seen. IMPRESSIONScattered osteoarthriticchanges and crystalline deposition with no acutebony abnormalities.[facility] 2 VW [id number] 18:29:11 Scattered osteoarthritic changes and crystalline deposition with no acutebony abnormalities. EXAM:XR HUMERUS 2 VW LEFT, EXAM: XR FOREARM 2 VW LEFT, EXAM: XR PELVIS <3 VW, EXAM: XR KNEE <3 VW LEFT, EXAM: XR HIPS 2 VW LEFT HISTORY: Fall with left arm pain COMPARISON: None FINDINGS: Imaging ofthe pelvis, knee and hip demonstrates intramedullary nailfixation of a healed right intertrochanteric fracture with chronicremodeling of the greater trochanter. There is moderate to severe bilateralfemoral acetabular joint space narrowing, subchondral sclerosis, marginalosteophyte formation with calcar buttressing. Linear crystalline depositionis seen adjacent to the bilateral hip joints within the gluteal andhamstring tendon complexes. Moderate to severe lumbosacral junctionspondylosis and facet arthropathy are seen. Chondrocalcinosis is seen atthe symphysis pubis. Scattered pelvic phleboliths areseen. Left total knee arthroplasty change is present with bulky corticalfragmentation about the femoral condyles. Cortical remodeling is seen aboutthe tibia at the level of the lateral tibial post. A small sized kneeeffusion is present. Chronic osseous fragmentation with focal cementextravasation are seen adjacent to the superior pole of the patella.Minimal paralleling perihardware lucency is seen about the tibialcomponent. 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 Mild tomoderate STT and thumb CMC jointspace loss with subchondral sclerosis and marginal osteophyte formation areseen. There is no effusion at the level of the elbow. There is dorsalsubcutaneous fat stranding along the proximal forearm. Radial head neckjunction and trochlear coronoid osteophyte formation are seen. There ismoderate acromioclavicular and glenohumeral joint space narrowing withmarginal osteophyte formation. Curvilinear crystalline deposition is seenat the level of the rotator cuff. Greater tuberosity degenerative cysticand sclerotic changes are seen. [facility], Radiant Results Inft User - 11/19/2018 1:29 PM CDTEXAM:XR HUMERUS 2 VW LEFT,EXAM:XR FOREARM 2 VW LEFT,EXAM:XR PELVIS <3 VW,EXAM:XRKNEE <3 VW LEFT,EXAM:XR HIPS 2 VW LEFTHISTORY:Fall with left arm pain COMPARISON:NoneFINDINGS: Imaging of the pelvis, knee and hip demonstrates intramedullary nailfixation of a healed right intertrochanteric fracture with chronicremodeling of the greater trochanter. There is moderate to severe bilat eralfemoral acetabular joint space narrowing, subchondral sclerosis, marginalosteophyte formation with calcar buttressing. Linear crystalline depositionis seen adjacent to the bilateral hip joints within the gluteal andhamstring tendon complexes. Moderate to severe lumbosacral junctionspondylosis and facet arthropathy are seen. Chondrocalcinosis is seen atthe symphysis pubis. Scattered pelvic phleboliths are seen.Left total knee arthroplasty change is present with bulky corticalfragmentation about the femoral condyles. Cortical remodeling is seen aboutthe tibia at the level of the lateral tibial post. A small sized kneeeffusion is present. Chronic osseous fragmentation with focal cementextravasation are seen adjacent to the superior pole of the patella.Minimal paralleling perihardware lucency is seen about the tibialcomponent.Images of the forearm and humerus demonstrate TFC chondrocalcinosis.Crystalline deposition is seen along the medial and lateral elbow jointline, at the AC joint capsule. Mild to moderate STT and thumb CMC jointspace loss with subchondral sclerosis and marginal osteophyte formation areseen. There is no effusion at the level of the elbow. There is dorsalsubcutaneous fat stranding along the proximal forearm. Radial head neckjunction and trochlear coronoid osteophyte formation are seen. There ismoderate acromioclavicular and glenohumeral joint space narrowing withmarginal osteophyte formation. Curvilinear crystalline deposition is seenat the level of the rotator cuff. Greater tuberosity degenerative cysticand sclerotic changes are seen. IMPRESSIONScattered osteoarthriticchanges and crystalline deposition with no acutebony abnormalities.[facility] WITH [id number] 18:29:00 Test Item Value Reference Range Interpretation Comments WBC (test code = See_Comment [Automated 6090-2) message] The sy stem which generated this result transmitted reference range : 4.30 - 11.10 10*3/?L. The reference range was not used to interpret this result as normal/abnormal . RBC (test code = See_Comment L [Automated 129-8) message] The sy stem which generated this result transmitted reference range : 3.93 - 5.25 10*6/?L. The reference range was not used to interpret this result as normal/abnormal . HGB (test code = 10.3 g/dL 11.6-15 L 718-7) HCT (test code = 33.4 % 35.7-45.2 L 4544-3) MCV (test code = 86.5 fL 80.6-95.5 787-2) MCH (test code = 26.7 pg 25.9-32.8 785-6) MCHC (test code = 30.8 g/dL 31.6-35.1 L 786-4) RDW-SD (test code = 50.0 fL 39-49.9 H 93367-3) RDW-CV (test code = 15.9 % 12-15.5 H 788-0) PLT (test code = See_Comment [Automated 777-3) message] The sy stem which generated this result transmitted reference range : 166 - 358 10*3/ ?L. The reference r gomez was not used to interpret this result as normal/abnormal . MPV (test code = 11.5 fL 9.5-12.9 18896-2) NRBC/100 WBC (test See_Comment [Automat ed code = [id number]) message] The system which generated this result transmitted reference range : 0.0 - 10.0 /100 WBCs. The refer ence range was not u sed to interpret th is result as normal/abnormal . NRBC x10^3 (test code <0.01 See_Comment [Auto mated = [id number]) message] The s ystem which generated this result transmitted reference range : 10*3/?L. The reference range was not used to interpret this result as normal/abnormal . GRAN MAT (NEUT) % 60.5 % (test code = 770-8) IMM GRAN % (test code 0.60 % = 1796933653) LYMPH % (test code = 25.4 % 736-9) MONO % (test code = 9.7 % 5905-5) EOS % (test code = 3.4 % 713-8) BASO % (test code = 0.4 % 706-2) GRAN MAT x10^3(ANC) 4.11 10*3/uL 1.88-7.09 (test code = 0372715262) IMM GRAN x10^3 (test 0.04 10*3/uL 0-0.06 code = 3203166295) LYMPH x10^3 (test code 1.73 10*3/uL 1.32-3.29 = 731-0) MONO x10^3 (test code 0.66 10*3/uL 0.33-0.92 = 742-7) EOS x10^3 (test code = 0.23 10*3/uL 0.03-0.39 711-2) BASO x10^3 (test code 0.03 10*3/uL 0.01-0.07 = 704-7) Lab Interpretation Abnormal (test code = 46064-3) [facility] [id number] 18:03:23 No acute cardiopulmonary process.* * * * * * * * ORIGINAL REPORT * * * * * * * *EXAM: XR CHEST 1 VWCOMPARISON: 08/08/2018 chest radiograph HISTORY: chest pain FINDINGS: Lines/Tubes: None. Lungs/pleura:?The lungs are clear. No pleural effusion or pneumothorax isidentified. Heart/Mediastinum: The cardiac silhouette is normal in size. Aortictortuosity is unchanged. Bones: Deformity of the distal right c lavicle is similar in appearance,possibly related to prior surgery and/or trauma. Multiple rib fracturedeformities are noted bilaterally and appear to be chronic. [facility], Radiant Results Inft User - 11/19/2018 1:03 PM CDT* * * * * * * * ORIGINAL REPORT * * * * * * * *EXAM: XR CHEST 1 VWCOMPARISON: 08/08/2018 chest radiographHISTORY: chest pain FINDINGS:Lines/Tubes: None.Lungs/pleura: The lungs are clear. No pleural effusion or pneumothorax isidentified.Heart/Mediastinum: The cardiac silhouette is normal in size. Aortictortuosity is unchanged.Bones: Deformity of the distal right clavicle is similar in appearance,possibly related to prior surgery and/or trauma. Multiple rib fracturedeformities are noted bilaterally and appear to be chronic.IMPRESSIONNo acute cardiopulmonary process.[facility]"
[2021-04-02] MEDS ORDERED: FENTANYL CITR 100 MCG/2 ML ONE (11:56)
--- NOTE | 2021-04-02 14:31 | RAD REPORT ---
EXAM DESCRIPTION: RAD - Pelvis - 04/02/2021 1:57 pm CLINICAL HISTORY: PAIN COMPARISON: Pelvis dated 03/16/2019 FINDINGS: Mild diffuse osteopenia is seen. Hardware is present in the proximal right femur. Severe d egenerative arthritic changes are present in both hips, slightly greater on the left. No fracture, di slocation or AVN pattern observed.
--- NOTE | 2021-04-02 14:32 | RAD REPORT ---
EXAM DESCRIPTION: RAD - Hip Right 2 View - 04/02/2021 1:57 pm CLINICAL HISTORY: PAIN COMPARISON: Hip Right 2 View dated 07/03/2020; Hip Right 2 View dated 03/08/2020 FINDINGS: Proximal right femur hardware is in place. There is no hardware loosening or infection see n. Advanced arthritic changes affect the right hip. The bones are diffusely demineralized.
[2021-04-02] MEDS ORDERED: KETOROLAC 30 MG/ML INJ ONE (14:49)
[2021-04-02] MEDS ORDERED: LIDOCAINE 4% PATCH ONE (14:50)
--- NOTE | 2021-04-02 14:54 | EDPHYS ---
Physician Documentation [facility] Name: Estephania Corrales Age: 75 yrs Sex: Female : 1945 Arrival Date: 04/02/2021 Time: 10:56 Bed 25 Private MD: ED Physician Gaurang Rosales HPI: 04/02 11:55 This 75 yrs old Female presents to ER via Wheelchair with complaints of Leg cp Pain, Back Pain, Hip Pain. 11:55 The patient presents with pain. The complaints affect the right hip and right low back. cp Onset: The symptoms/episode began/occurred worse over past 3 weeks. Modifying factors: the symptoms are aggravated by movement, weight bearing. 11:55 Patient reports fall September 2020 and denies any recent fall. cp Historical: - Allergies: 11:10 No Known Allergies; ww - Home Meds: 11:10 carvedilol 25 mg Oral tab [Active]; Janumet XR 50-1,000 mg Oral TM24 1 tab BID ww [Active]; Lyrica 75mg Oral 1 cap 3 times per day [Active]; - PMHx: 11:10 Hypertension; Herniated disc; High Cholesterol; Diabetes - IDDM; Chronic pain; ww - Immunization history:: Adult Immunizations up to date. - Social history:: Smoking status: Patient denies any tobacco usage or history of. ROS: 12:00 MS/extremity: Positive for pain, of the right hip. cp 12:00 Eyes: Negative for injury, pain, redness, and discharge. cp 12:00 Constitutional: Negative for body aches, chills, fever, poor PO intake. 12:00 ENT: Negative for ear pain, sore throat, difficulty swallowing, difficulty handling secretions. 12:00 Cardiovascular: Negative for chest pain, palpitations. 12:00 Respiratory: Negative for cough, shortness of breath, wheezing. 12:00 Abdomen/GI: Negative for abdominal pain, nausea, vomiting, and diarrhea. 12:00 Back: Positive for pain at rest, pain with movement, of the lumbar area and right low back, Negative for injury or acute deformity. 12:00 : Negative for urinary symptoms. 12:00 Neuro: Negative for altered mental status, headache, syncope, weakness. 12:00 All other systems are negative. Exam: 12:05 Constitutional: The patient appears in no acute distress, alert, awake, non-toxic, well cp developed, well nourished. 12:05 Head/Face: Normocephalic, atraumatic. cp 12:05 Chest/axilla: Inspection: normal. 12:05 Cardiovascular: Rate: normal. 12:05 Respiratory: the patient does not display signs of respiratory distress, Respirations: normal. 12:05 Abdomen/GI: Inspection: abdomen appears normal, Palpation: abdomen is soft and non-tender, in all quadrants. 12:05 Back: pain, that is moderate, of the lumbar area and right low back, ROM is painful, with all movement, Straight leg raises: of both lower extremities does not illicit pain. 12:05 Musculoskeletal/extremity: Extremities: grossly normal except: noted in the right hip: pain, There is no evidence of decreased ROM, deformity, ROM: limited active range of motion due to pain, in the right hip, Perfusion: the extremity is normally perfused throughout, DVT Exam: negative Homans' sign noted on exam, no erythema, no increased warmth. 12:05 Neuro: Orientation: to person, place \T\ time. Mentation: is normal. Vital Signs: 11:08 BP 131 / 80; Pulse 84; Resp 18; Temp 98.3; Pulse Ox 96% ; Weight 65.77 kg; Height 5 ft. ww 3 in. (160.02 cm); Pain 10/10; 11:56 BP 147 / 87; Pulse 76; Resp 17; Pulse Ox 100% on R/A; Pain 10/10; ab2 13:36 BP 132 / 78; Pulse 73; Resp 16; Pulse Ox 98% on R/A; ab2 14:23 BP 164 / 74; Pulse 70; Resp 16; Pulse Ox 100% on R/A; Pain 10/10; ab2 11:08 Body Mass Index 25.69 (65.77 kg, 160.02 cm) ww MDM: 11:28 Patient medically screened. cp 13:00 Differential diagnosis: dislocation, closed fracture, contusion, tendonitis. cp 14:42 Data reviewed: vital signs, nurses notes, radiologic studies, CT scan, plain films. cp 14:42 Test interpretation: by ED physician or midlevel provider: plain radiologic studies. 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 Response to treatment: the patient's symptoms have mildly improved after treatment. ED course: VSS. Pain improved with meds. Radiology studies negative for acute findings. Patient able to stand and bear weight on right hip and has walker at home for use. Patient is a patient of pain management. Will discharge to home to f/u with pain management. 04/02 11:41 Order name: XRAY Hip RIGHT 2 view cp 04/02 11:41 Order name: XRAY Pelvis cp 04/02 11:46 Order name: IV; Complete Time: 11:56 cp Administered Medications: 11:56 Drug: fentaNYL (PF) 25 mcg Route: IVP; Site: left antecubital; ab2 13:37 Follow up: Response: No adverse reaction ab2 Disposition: 18:24 Co-signature as Attending Physician, Gaurang Rosales MD. rn Disposition Summary: 04/02/21 14:43 Discharge Ordered Location: Home cp Problem: an ongoing problem cp Symptoms: have improved cp Condition: Stable cp Diagnosis - Pain in right hip cp - Low back pain cp Followup: cp - With: Gideon Kimble DO - When: 2 - 3 days - Reason: Recheck today's complaints Discharge Instructions: - Discharge Summary Sheet cp - Chronic Back Pain cp - Hip Pain cp Forms: - Medication Reconciliation Form cp - Thank You Letter cp - Antibiotic Education cp - Prescription Opioid Use cp Prescriptions: - Mobic 7.5 mg Oral Tablet - take 1 tablet by ORAL route once daily take with food; 20 tablet; Refills: 0, cp Product Selection Permitted - Lidoderm 5 % Topical adhesive patch,medicated - apply 1 patch by TOPICAL route once daily; 1 box; Refills: 0, Product Selection cp Permitted Signatures: Dispatcher [employer] EDMS Gaurang Rosales MD MD rn Page, Corey, PA PA cp Wood, Whitney, RN RN Wilton Grant ab2
--- NOTE | 2021-04-02 14:54 | ER ---
Nurse's Notes [facility] Name: Estephania Corrales Age: 75 yrs Sex: Female : 1945 Arrival Date: 04/02/2021 Time: 10:56 Bed 25 Private MD: Diagnosis: Pain in right hip;Low back pain Presentation: 04/02 11:08 Chief complaint: Patient states: Complaining of right hip pain with a knot that is ww radiating to her spine and buttock. She states she fell in October 2019 at [employer] on the wet floor and pain is getting worse now. Coronavirus screen: Vaccine status: Patient reports receiving the 2nd dose of the covid vaccine. Client denies travel out of the [place] in the last 14 days. Ebola Screen: Patient negative for fever greater than or equal to 101.5 degrees Fahrenheit, and additional compatible Ebola Virus Disease symptoms Patient denies exposure to infectious person. Patient denies travel to an Ebola-affected area in the 21 days before illness onset. Initial Sepsis Screen: Does the patient meet any 2 criteria? No. Patient's initial sepsis screen is negative. Does the patient have a suspected source of infection? No. Patient's initial sepsis screen is negative. Risk Assessment: Do you want to hurt yourself or someone else? Patient reports no desire to harm self or others. Onset of symptoms is unknown. 11:08 Method Of Arrival: Wheelchair ww 11:08 Acuity: [place] 3 ww Triage Assessment: 11:10 General: Appears uncomfortable, Behavior is cooperative. Pain: Complains of pain in ww right femoral area, right inguinal area, right iliac crest and right hip. EENT: No signs and/or symptoms were reported regarding the EENT system. Neuro: Level of Consciousness is awake, alert, obeys commands, Oriented to person, place, time, situation, Reports weakness in right leg. Cardiovascular: Patient's skin is warm and dry. Respiratory: Airway is patent Respiratory effort is even, unlabored, Respiratory pattern is regular, symmetrical. GI: No signs and/or symptoms were reported involving the gastrointestinal system. : No signs and/or symptoms were reported regarding the genitourinary system. Derm: Skin is intact, is thin. Musculoskeletal: Circulation, motion, and sensation intact. Historical: - Allergies: 11:10 No Known Allergies; ww - Home Meds: 11:10 carvedilol 25 mg Oral tab [Active]; Janumet XR 50-1,000 mg Oral TM24 1 tab BID ww [Active]; Lyrica 75mg Oral 1 cap 3 times per day [Active]; - PMHx: 11:10 Hypertension; Herniated disc; High Cholesterol; Diabetes - IDDM; Chronic pain; ww - Immunization history:: Adult Immunizations up to date. - Social history:: Smoking status: Patient denies any tobacco usage or history of. Screenin:19 Abuse screen: Denies threats or abuse. Denies injuries from another. Nutritional ab2 screening: No deficits noted. Tuberculosis screening: No symptoms or risk factors identified. Fall Risk Fall in past 12 months (25 points). No secondary diagnosis (0 pts). No IV (0 pts). Ambulatory Aid- None/Bed Rest/Nurse Assist (0 pts). Gait- Weak (10 pts.). Mental Status- Oriented to own ability (0 pts). Total Jeffrey Fall Scale indicates Low Risk Score (25-44 pts). Fall prevention measures have been instituted. Side Rails Up X 2 Placed close to Nursing Station As available Patient and Family Educated on Fall Prevention Program and strategies. Assessment: 11:17 General: Appears in no apparent distress. Behavior is calm, cooperative, appropriate ab2 for age. Pain: Complains of pain in right femoral area, right inguinal area, right iliac crest and right hip Pain currently is 10 out of 10 on a pain scale. Neuro: Level of Consciousness is awake, alert, obeys commands, Oriented to person, place, time, situation, Appropriate for age Search Engine Optimizer are equal bilaterally Moves all extremities. Speech is normal. Cardiovascular: No deficits noted. Reports None Denies chest pain, shortness of breath, Heart tones S1 S2 present Capillary refill < 3 seconds Patient's skin is warm and dry. Chest pain is denied. Respiratory: No deficits noted. Airway is patent Breath sounds are clear bilaterally. Denies cough, shortness of breath. GI: No deficits noted. No signs and/or symptoms were reported involving the gastrointestinal system. : No deficits noted. No signs and/or symptoms were reported regarding the genitourinary system. EENT: No deficits noted. No signs and/or symptoms were reported regarding the EENT system. Derm: No deficits noted. No signs and/or symptoms reported regarding the dermatologic system. Skin is intact, is healthy with good turgor, Skin is pink, warm \T\ dry. Musculoskeletal: Reports pain in right femoral area, right inguinal area, right iliac crest and right hip since Sep 2020. Injury Description: Pt states she [place] [employer]. Vital Signs: 11:08 BP 131 / 80; Pulse 84; Resp 18; Temp 98.3; Pulse Ox 96% ; Weight 65.77 kg; Height 5 ft. ww 3 in. (160.02 cm); Pain 10/10; 11:56 BP 147 / 87; Pulse 76; Resp 17; Pulse Ox 100% on R/A; Pain 10/10; ab2 13:36 BP 132 / 78; Pulse 73; Resp 16; Pulse Ox 98% on R/A; ab2 14:23 BP 164 / 74; Pulse 70; Resp 16; Pulse Ox 100% on R/A; Pain 10/10; ab2 11:08 Body Mass Index 25.69 (65.77 kg, 160.02 cm) ww ED Course: 10:56 Patient arrived in ED. as 11:10 Triage completed. ww 11:10 Arm band placed on right wrist. ww 11:12 Wilton Pedro is Primary Nurse. ab2 11:19 No provider procedures requiring assistance completed. ab2 11:20 Patient has correct armband on for positive identification. Bed in low position. Call ab2 light in reach. Side rails up X2. 11:23 Anson Guerra PA is PHCP. cp 11:23 Gaurang Rosales MD is Attending Physician. cp 11:55 Inserted saline lock: 20 gauge in left antecubital area, using aseptic technique. ab2 13:57 XRAY Hip RIGHT 2 view In Process Unspecified. EDMS 13:57 XRAY Pelvis In Process Unspecified. EDMS 14:42 Gideon Kimble DO is Referral Physician. cp 14:54 IV discontinued, intact, bleeding controlled, No redness/swelling at site. Pressure ab2 dressing applied. Administered Medications: 11:56 Drug: fentaNYL (PF) 25 mcg Route: IVP; Site: left antecubital; ab2 13:37 Follow up: Response: No adverse reaction ab2 Outcome: 14:43 Discharge ordered by . cp 14:54 Discharged to home ambulatory. ab2 14:54 Condition: good 14:54 Discharge instructions given to patient, Instructed on discharge instructions, follow up and referral plans. medication usage, Demonstrated understanding of instructions, follow-up care, medications, Prescriptions given X 2. 14:54 Patient left the ED. ab2 Signatures: Dispatcher [employer] Karen Mackenzie Corey, PA PA cp Wood, Whitney RN RN Wilton Grant ab2
[2021-04-02 15:24] VITALS: TEMP 98.3
[2021-04-02 15:28] VITALS: BP 164/74; O2SAT 100
== END 2021-04-02 14:54 | disposition home or self-care (01) ==
LOC: ER 10:54
DX: M25.551 Pain in right hip (principal); M54.50 Low back pain, unspecified; Z91.81 History of falling; E11.9 Type 2 diabetes mellitus without complications; I10 Essential (primary) hypertension; Z79.4 Long term (current) use of insulin
CPT/HCPCS: 72170; 73502; 96374; 99284; J3010

== ENCOUNTER 2023-05-12 15:27 | Inpatient (IN) | payer OTHER ==
[2023-05-12] MEDS ORDERED: ACETAMINOPHEN 500 MG TAB PO PRN (20:22)
[2023-05-12 20:27] VITALS: BMI 25.8
[2023-05-12] MEDS ORDERED: GLUCAGON 1 MG/VIAL IM PRN (20:29)
[2023-05-12] MEDS ORDERED: NITROGLYCERIN 0.4 MG/TAB SL PRN (20:29)
[2023-05-12] MEDS ORDERED: DOCUSATE NA/SENNA CONC 1 TAB PO PRN (20:29)
[2023-05-12] MEDS ORDERED: D50W 25 GM/50 ML SYRINGE IV PRN (20:29)
[2023-05-12] MEDS ORDERED: POLYETHYL GLY 3350 17 GM/DOSE PO PRN (20:40)
[2023-05-12] MEDS ORDERED: BISACODYL 10 MG RECTAL SUPP PR PRN (20:40)
[2023-05-12] MEDS ORDERED: D10W 125 ML IV PRN (20:45)
[2023-05-12] MEDS: ALBUTEROL INHALER 200 PUFF/6.7 GM IH SCH (21:00)
[2023-05-12] MEDS: INSULIN REGULAR (HUMAN) 100 UNIT/ML SQ SCH (21:00)
--- NOTE | 2023-05-12 21:07 | RAD REPORT ---
EXAM DESCRIPTION: RAD - Chest Single View - 05/12/2023 9:01 pm CLINICAL HISTORY: rt picc placement COMPARISON: Chest Pa And Lat (2 Views) dated 09/17/2022; Chest Pa And Lat (2 Views) dated 05/14/2022; Chest Pa And Lat (2 Views) dated 07/03/2020; Chest Single View dated 02/09/2019 FINDINGS: Portable chest was obtained following placement of a right upper extremity PICC line. The catheter tip projects over the right axillary region. Suggest removal..
[2023-05-12] MEDS: MONTELUKAST 10 MG TAB PO SCH (21:22)
[2023-05-12] MEDS: DOCUSATE NA/SENNA CONC 1 TAB PO SCH (21:23)
[2023-05-12] MEDS: ALBUTEROL INHALER 200 PUFF/6.7 GM IH ONE (21:35)
[2023-05-12] MEDS: TRAMADOL HCL 50 MG TAB PO PRN (23:15)
[2023-05-12] MEDS: MELATONIN 3 MG TABLET PO PRN (23:16)
[2023-05-13] MEDS: HYDROCODONE/APAP 5/325 MG TAB PO PRN (02:36)
[2023-05-13 06:03] LABS: Absolute Basophils 0.1 K/uL (0-0.5); Absolute Eosinophils 0.2 K/uL (0-0.5); Absolute Lymphocytes (CBC) 1.1 K/uL (0.7-4.9); Absolute Monocytes 0.9 K/uL (0.1-1.3); Absolute Neutrophil 4.1 K/uL (1.8-8.0); Basophils % 1.1 % (0-1.3); Eosinophils % 2.7 % (0-4.4); Hematocrit 24.2 % (36.0-45.0); Hemoglobin 8.1 g/dL (12.0-15.0); Lymphocytes % 17.7 % (15.3-44.8); MCH 29.6 pg (27.0-35.0); MCHC 33.3 g/dL (32.0-36.0); MCV 88.6 fL (80-100); MPV 7.4 fL (7.6-11.3); Monocytes % 13.8 % (3.3-12.3); Neutrophils % 64.7 % (41.7-73.7); Nucleated Red Blood Cells % 0.1 % (0-0); Platelets 496 thou/uL (152-406); RBC Red Blood Cell Count 2.73 M/uL (3.86-4.86)
[2023-05-13 06:11] LABS: Albumin 2.8 g/dL (3.4-5.0); Anion Gap 8.3 mEq/L (5.0-15.0); Magnesium 1.8 mg/dL (1.6-2.4); Potassium 3.3 mEq/L (3.5-5.1); Prealbumin 14.1 mg/dL (20-40)
[2023-05-13] MEDS ORDERED: ERTAPENEM SODIUM 1 GM VIAL IVPB SCH (07:00)
[2023-05-13] MEDS: LIDOCAINE 4% PATCH TOP SCH (07:36)
[2023-05-13] MEDS: LOSARTAN POTASSIUM 50 MG TABLET PO SCH (07:36)
[2023-05-13] MEDS: FE SULF/FA/VIT B COMP & C TAB PO SCH (07:37)
[2023-05-13] MEDS: FERROUS SULFATE 325 MG TAB PO SCH (07:37)
[2023-05-13] MEDS: APIXABAN 2.5 MG TABLET PO SCH (07:37)
[2023-05-13] MEDS: DAPTOmycin 400 MG in NA CHLORIDE 0.9% 100 ML IVPB SCH ×2 (08:00→09:33)
[2023-05-13] MEDS ORDERED: DOCUSATE NA/SENNA CONC 1 TAB PO SCH (08:00)
[2023-05-13] MEDS ORDERED: Meropenem 1,000 MG in NA CHLORIDE 0.9% 100 ML IV SCH (09:00)
[2023-05-13] MEDS: Meropenem 1,000 MG in NA CHLORIDE 0.9% 100 ML IV SCH (09:04)
[2023-05-13] MEDS: MELOXICAM 7.5 MG TAB PO SCH (09:58)
[2023-05-13] MEDS: hydroCHLOROthiazide 25 MG TAB PO SCH (10:34)
[2023-05-13] MEDS: ALBUTEROL INHALER 200 PUFF/6.7 GM IH SCH (12:51)
[2023-05-13] MEDS: POTASSIUM CL SA 10 MEQ TAB PO ONE (14:03)
--- NOTE | 2023-05-13 17:05 | RAD REPORT ---
[facility] CLINICAL HISTORY: PICC line placement COMPARISON: Chest Single View dated 05/12/2023; Chest Pa And Lat (2 Views) dated 09/17/2022; Chest Pa And Lat (2 Views) dated 05/14/2022; Chest Pa And Lat (2 Views) dated 07/03/2020 TECHNIQUE: Portable AP view of the chest. FINDINGS: Left arm PICC with catheter tip in the mid SVC. Another peripheral catheter terminates in the proximal right arm/axilla. The lungs are clear. No pneumothorax or effusion. The cardiomediastin al contours are unremarkable. IMPRESSION: Satisfactory right arm PICC placement. No acute cardiopulmonary process.
[2023-05-13] MEDS: MAGNESIUM OXIDE 400 MG TAB PO SCH (19:19)
[2023-05-13] MEDS: GABAPENTIN 100 MG CAP PO SCH (19:19)
[2023-05-13] MEDS: Mupirocin NASAL 2 APPL/1 GM TUBE NAS SCH (19:20)
[2023-05-13] MEDS ORDERED: NA CHLORIDE 0.9% 1,000 ML ONE (21:33)
--- NOTE | 2023-05-13 22:22 | HP ---
Date of Admission: 05/12/2023 Time Of Service: 1 p.m. Chief Complaint: "I had back surgery and infection." History Of Present Illness: Ms. Corrales is a 77-year-old patient, who has a recent lumbar spinal proced ure for spinal stenosis, laminectomy involved L4-S1 and was on April 24, 2023. Postoperatively, berny dodd suggested the possibility of an infection. There were surrounding inflammatory changes with e dawna along an overlying area of thickness. The other differential is a postoperative seroma. Omkar fisher, with cultures, the wound showed MRSA. She was treated with IV vancomycin, but shortly after treat ment, she became unresponsive, had shallow breathing, oxygen down to 70%, and systolic blood pressure dropped to 89. She was recognized as having an anaphylactic reaction. She received IV fluid resusc itation, non-rebreather, and was evaluated in the emergency room. Her chest x-ray and imaging identi fied a fluid collection, 3.2 x 3.4 cm in the midline in the paraspinal region. She also had hyponatr emia, hyperglycemia, hyperbilirubinemia, lactic acidosis, and high troponins along with anemia. She was seen again by the Neurosurgery Service and received IV Zyvox and Invanz and IV lactated Ringer's 75 cc an hour. She was resuscitated. Blood work did show continued monitoring of the basic metaboli c panel, hemoglobin and hematocrit was followed. Antihypertensive medications were held. Metformin was held. She subsequently recovered and had evaluation by physical and occupational along with [facility] therapy and determined that she was functioning well below her baseline level. She was diffusely weak, had difficulty with transfers, and beginning to ambulate very difficult. She required maximum assistance for ordinary activities of daily living. As a result of her significant decline in functi on and her comorbid conditions, she was determined to be an appropriate [facility] and was therefore admitted to the unit for physical, occupational, and speech [facility]. Past Medical History: Hypertension, mild cognitive impairment, diabetes mellitus, recent laminectomy involving L4-S1 complicated by infection and anaphylactic reaction in the spinal region. She is cur rently on IV antibiotics to continue for a total of 5 weeks in the next month. She is now on meropen em every 8 hours. Allergies: NO KNOWN DRUG ALLERGIES EXCEPT LIKELY VANCOMYCIN NOW. Imaging: CT scan of lumbar spine on 05/10/2023 shows posterior spinal fusion and kyphoplasty at L4 t hrough S1. She has an acute fracture of the S1 vertebrae and a 6 to 7 mm anterior displacement relat fatemeh to the sacrum at S1. She has a 3.2 x 3.4 cm midline fluid collection and the subcutaneous retail business development manager ior paraspinal soft tissue at the L3 level. There are surrounding inflammatory changes and edema astrid ng with overlying thickening. Chest x-ray shows vertebral fracture with 6 mm anterior displacement o f the S1 relative to the remainder of the sacrum. Current Medications: Tylenol 500 mg every 4 hours as needed, [place] 5/325 every 4 hours, albuterol ne bulizer 2 puffs 4 times daily as scheduled, Fosamax 70 mg every seventh day, Eliquis 2.5 mg twice kaushik ly, daptomycin 400 mg IV every 24 hours, ferrous sulfate 325 mg daily, gabapentin 100 mg twice daily, HydroDIURIL 12.5 mg daily, lidocaine patch apply topically daily as needed, magnesium oxide 400 mg t wice daily, melatonin 3 mg at bedtime, Mobic 15 mg daily, meropenem 1000 mg every 8 hours until June 08, Singulair 10 mg at bedtime, hemocyte plus daily with breakfast, mupirocin apply nasally twice d aily, nitroglycerin 0.4 mg sublingual as needed for chest pain that is moderate to severe, potassium chloride 10 mEq daily, Senokot-S 2 at bedtime, tramadol 50 mg every 4 hours as needed. Family History: Noncontributory. Social History: The patient lives with family. No alcohol, tobacco, or IV drug use. Review of Systems: She did report some pain in the back and diffuse weakness and it is discussed that she will have pain medications adjusted as noted above including neuromodulator, minimal use of narcotics and transderm al means along with magnesium and muscle relaxant as needed. Otherwise, she denies any other positiv es on the review of systems. Current Level Of Functioning: Eating is at setup assistance, oral hygiene also setup assistance, tammy let hygiene maximum assistance, bathing maximum assistance, upper body dressing and lower body dressi ng and donning and doffing footwear maximum assistance required, rolling ozcz-vx-xirjz from sit-to-st and in bed and sitting to a sliding board maximum assistance required. Transfer from chair to toilet require maximal assistance. Ambulation with a rolling walker covered 4 feet maximum assistance. Laboratory Studies: White blood cell count 6.3, hemoglobin 8.1, platelets 496. Sodium 137, potassiu m 3.3, chloride 104, carbon dioxide 28, BUN 7, creatinine 0.60, glucose ranged from 109 to 151, calci um 8.6, magnesium 1.8, albumin 2.8, prealbumin 14.1. Physical Examination: Vital Signs: Blood pressure 126/55, pulse up to 101, respiratory rate 16, temperature 98.1, oxygen s aturation 94%, weight 160 pounds, height 5 feet 6 inches, BMI 25.8. General: Ms. Corrales is sitting in a chair beside bed. She is in no significant distress. She does godinez ve htip-jd-nvkwiuis pain in the back, which is improving. She received something for pain recently. HEENT: Otherwise, normocephalic, atraumatic. Sclerae anicteric. Oropharynx pink and moist. Neck: Supple. Chest: Clear. Heart: Regular. Extremities: Show no significant edema or cyanosis. Good hemostasis in the lower back area. Note, she did have a chest x-ray done earlier today showing a satisfactory right arm PICC line placem ent and no acute cardiopulmonary abnormalities. Rehabilitation And Medical Assessment And Plan: Ms. Corrales admitted to rehabilitation unit with impair ment category 09, orthopedic. Her impairment group code is 08.9, other orthopedic. Etiologic diagno sis, lumbar stenosis. Her comorbidities are anemia, debility, decreased mobility, decreased physical functioning, diabetes mellitus type 2, hypertension, hyponatremia, urinary tract infection, MRSA, fl uid collection, treated by long-term antibiotics, and urinary tract infection. In addition, she has had the subcutaneous abscess, S1 fracture, resolving lactic acidosis, elevated troponins, and anemia. Plan: 1.She will have physical, occupational, and speech therapy for 3.5 hours, 5 of 7 days. 2.We will continue the meropenem every 8 hours 1000 mg as noted, Senokot-S for constipation, potassi um replacement for hypokalemia, Hemocyte Plus and ferrous sulfate for her anemia, melatonin for insom bethany, magnesium for muscle spasms, lidocaine patch applied to back as needed for pain, gabapentin, whi ch is a neuromodulator to be used for neuropathic pain. In addition to the meropenem, she is on dapt omycin 400 mg every 8 hours for her abscess. Ventolin inhaler 2 puffs twice daily and [place] and Tyle nol as needed for pain. Comorbidities That Are Impacting Her Rehabilitation: Currently, she requires 2 IV antibiotics and th ose are going to be ongoing until around June 08. Her physical therapy sessions and speech session s will be worked around that time. She does have significant risk for deep vein thrombosis. She has Eliquis to manage that risk. In addition to high fall risk, fall precautions adhered to at all time s and has a risk of myocardial infarction. She does have Eliquis for minimizing the risk of that in addition to decreasing stroke risk. Rehab Specific Plan: Ms. Corrales will have physical, occupational, and speech therapy for 3.5 hours, 5 of 7 days, to improve her ability to transfer from bed to chair to toilet to shower, to begin ambulat ing and ambulate 250 feet with modified independence, to go up and down 10 steps with modified indepe ndence, propel a wheelchair with modified independence. In addition, she will have speech therapy to address her mild cognitive impairment, allow her to improve her decision making for safety awareness and medication management and physician followup. She will have Teenage Babysitter evaluation for disc harge planning and durable medical equipment needs. She will have 24 hours a day assisted to address all of her medical needs. She will have daily physician evaluation and management into great management and treatment of her comorbid conditions and her therapy. Ms. Corrales has a good understanding of the process of admission to the inpatient rehabilitation facilit y and how she may benefit from therapy as noted. If need be, Infectious Disease Service, Orthopedic Service, Hospitalist Service will be consulted. Given her complex medical condition and risk of furt her complications, rehabilitation can be safely or effectively performed at a lower level facility baptiste ch as assisted. Barriers To Discharge: At this point, she requires IV antibiotics to continue and will have to be wo rked around her discharge, which is planning to be home, so therapy will continue along with nursing to address the medications. However, given that the meropenem is 3 times daily, family training may be required to facilitate that and the patient will have a PICC line to go home to continue her treat ment. Length Of Stay: About 12 days. Disposition: Home with family and Home Health to continue with therapy. Prognosis: Good. Rehabilitation Goals: 1.Become independent with upper body dressing, toileting, donning and doffing of shoes, dressing of lower body. 2.Independently ambulate 250 feet with a rolling walker. 3.Propel a wheelchair 250 feet independently. 4.Go up and down 10 steps independently with bilateral handrails. 5.Perform all cognitive functioning independently. 6.The above goals were reviewed with Ms. Corrales and she is in agreement. By signing this document, I acknowledge I performed a full physical examination on Ms. Corrales no later than 24 hours after her admission to the inpatient rehabilitation facility and determined that she is able to tolerate the above course of treatment at an intensive level for a reasonable period of time . A detailed individualized plan of care for her will be completed by hospital day 4 based on the pr e-admission screen, history and physical, and therapy evaluations. YAQUELIN Voice ID: [id number]
[2023-05-13] MEDS: SODIUM CHLORIDE 0.9% 10ML INJ IV SCH (22:35)
[2023-05-14] MEDS: ALENDRONATE 70 MG TAB PO SCH (05:24)
[2023-05-14 05:31] LABS: Anion Gap 7.2 mEq/L (5.0-15.0); Potassium 3.2 mEq/L (3.5-5.1)
[2023-05-14] MEDS: POTASSIUM CL SA 10 MEQ TAB PO SCH (08:25)
[2023-05-15] MEDS: POTASSIUM CL SA 10 MEQ TAB PO SCH (07:45)
--- NOTE | 2023-05-15 13:42 | P.RH.PN ---
Estimated Length of Stay: 15 Expected Discharge Date: 05/29/23 Discharge Disposition Plan: Home Family Support: Yes Vital Signs: Last Vital Signs Temp 98 F 05/15/23 06:41 Pulse 113 H 05/15/23 07:49 Resp 16 05/15/23 12:53 BP 139/84 05/15/23 07:49 Pulse Ox 95 05/15/23 12:53 Laboratory: Laboratory Last Values WBC 6.30 thou/uL (4.3-10.9) 05/13/23 05:13 RBC 2.73 M/uL (3.86-4.86) L 05/13/23 05:13 Hgb 8.1 g/dL (12.0-15.0) L 05/13/23 05:13 Hct 24.2 % (36.0-45.0) L 05/13/23 05:13 MCV 88.6 fL (80-100) 05/13/23 05:13 MCH 29.6 pg (27.0-35.0) 05/13/23 05:13 MCHC 33.3 g/dL (32.0-36.0) 05/13/23 05:13 RDW 20.0 % (12.1-15.2) H 05/13/23 05:13 Plt Count 496 thou/uL (152-406) H 05/13/23 05:13 MPV 7.4 fL (7.6-11.3) L 05/13/23 05:13 Neutrophils % 64.7 % (41.7-73.7) 05/13/23 05:13 Lymphocytes % 17.7 % (15.3-44.8) 05/13/23 05:13 Monocytes % 13.8 % (3.3-12.3) H 05/13/23 05:13 Eosinophils % 2.7 % (0-4.4) 05/13/23 05:13 Basophils % 1.1 % (0-1.3) 05/13/23 05:13 Absolute Neutrophils 4.1 K/uL (1.8-8.0) 05/13/23 05:13 Absolute Lymphocytes 1.1 K/uL (0.7-4.9) 05/13/23 05:13 Absolute Monocytes 0.9 K/uL (0.1-1.3) 05/13/23 05:13 Absolute Eosinophils 0.2 K/uL (0-0.5) 05/13/23 05:13 Absolute Basophils 0.1 K/uL (0-0.5) 05/13/23 05:13 Sodium 138 mEq/L (136-145) 05/14/23 04:40 Potassium 3.2 mEq/L (3.5-5.1) L 05/14/23 04:40 Chloride 104 mEq/L (98-107) 05/14/23 04:40 Carbon Dioxide 30 mEq/L (21-32) 05/14/23 04:40 Anion Gap 7.2 mEq/L (5.0-15.0) 05/14/23 04:40 BUN 7 mg/dL (7-18) 05/14/23 04:40 Creatinine 0.60 mg/dL (0.55-1.02) 05/14/23 04:40 Est GFR (CKD-EPI) 92 ml/min (=/>90) 05/14/23 04:40 Glucose 116 mg/dL (74-106) H 05/14/23 04:40 POC Glucose 202 mg/dL (65-120) H 05/15/23 11:04 Calcium 8.5 mg/dL (8.5-10.1) 05/14/23 04:40 Magnesium 1.8 mg/dL (1.6-2.4) 05/13/23 05:13 Albumin 2.8 g/dL (3.4-5.0) L 05/13/23 05:13 Prealbumin 14.1 mg/dL (20-40) L 05/13/23 05:13 Weight: 160 lb Within Defined Parameters: Yes Wound Present: No Closed Surgical Incision Present: Yes Negative Pressure Wound Therapy Present: No Physician Update: Labs reviewed and stable. Moderate pain and confusion today. Incontinent of bowel and bladder. Will start Cymbalta 30 mg daily. SLUMS 6. Walked 25' CGA with pain limitation. Mod assist with bed mobility. CGA with ambulation. Summary: Patient's care plan and alf goals have been reviewed and revised as necessary. Please see the Rehabilitation Signature page for all necessary signatures.
--- NOTE | 2023-05-15 17:24 | EKG ---
Test Date: 2023-05-14 Test Time: 12:53:52 Photo Cartographer: ALONSO MEASUREMENT RESULTS: Intervals: Rate: 113 VT: 142 QRSD: 76 QT: 342 QTc: 469 [place]: P: 52 VT: 142 QRS: -39 T: 68 INTERPRETIVE STATEMENTS: Sinus tachycardia Left axis deviation Inferior infarct, age undetermined Anteroseptal infarct, age undetermined Abnormal ECG Compared to ECG 02/09/2019 09:17:48 Left-axis deviation now present Myocardial infarct finding now present Sinus rhythm no longer present Electronically Signed On 05-15-23 17:20:44 CDT by Gilberto Elizabeth
[2023-05-15] MEDS: ALBUTEROL INHALER 200 PUFF/6.7 GM IH SCH (19:52)
[2023-05-16] MEDS: DULOXETINE 30 MG CAP PO SCH (09:02)
[2023-05-17] MEDS ORDERED: NA CHLORIDE 0.9% 250 ML ONE (00:07)
--- NOTE | 2023-05-17 20:49 | PN ---
Subjective: Antoni is in bed. at bedside. She is very happy so far with her therapy. She sa id the pain in the back has improved a bit. It was somewhat significant in the last night, but that is better with pain patch and multiple pain modalities addressing the pain. Otherwise, she is eating okay, and no new findings or issues. Review of Systems: No fevers or chills. Some mild back pain and myalgias and arthralgias in the back. No rash. No psy chiatric issues or genitourinary or gastrointestinal active issues. Physical Examination: Vital Signs: Blood pressure 140/65, pulse 93, respiratory rate 16, temperature 97.6, oxygen saturati on 97%. Weight 160 pounds. Height 5 feet 6 inches. BMI 25.8. General: Ms. Corrales is lying in bed. She is in no significant distress. at bedside. HEENT: She is normocephalic, atraumatic. Sclerae anicteric. Oropharynx pink and moist. Neck: Supple. Chest: Clear. Extremities: No significant edema, cyanosis, or clubbing noted. Laboratory Studies: White blood cell count 6.3, hemoglobin 8.1, platelets 496, blood sugars ranged f rom 120 to 186. Sodium 138, potassium 3.2, chloride 104, carbon dioxide 30, BUN 7, creatinine 0.60, calcium 8.5. She did have an electrocardiogram on the , there was a possibility of worrying of a trial fibrillation. The study showed sinus tachycardia with a rate 113, left axis deviation, inferio r infarct, age undetermined, anteroseptal infarct, age undetermined. Current Medications: Tylenol 500 mg every 4 hours as needed, [place] 5/325 every 4 hours as needed, Ve ntolin inhaler 2 puffs twice daily, Fosamax 70 mg every seventh day, Eliquis 2.5 mg twice daily, Dulc olax 10 mg suppository as needed, daptomycin 400 mg IV every 24 hours, Cymbalta 30 mg daily, ferrous sulfate 325 mg daily, gabapentin 100 mg twice daily, HydroDIURIL 12.5 mg daily, lidocaine patch apply topically daily, Cozaar 100 mg daily, magnesium oxide 400 mg twice daily, melatonin 3 mg at bedtime, Mobic 15 mg daily, meropenem for urinary tract infection 1000 mg every 8 hours, Singulair 10 mg at b edtime, Hemocyte Plus 1 tablet daily, Bactroban nasal spray twice daily, Nitrostat 0.4 mg sublingual as needed for pain rated 6 to 8, twice daily, tramadol 50 mg every 4 hours as needed. Progress Made With Physical And Occupational Therapy: Today, she covered 50 feet twice with contact guard assistance using a rolling walker. Minimum assistance for [id number] transfers. With occupa tional therapy, completed grooming with brushing front of her hair, back of the hair with moderate as sistance. Did linares bag toss, 6 bags able to toss while standing with the wheelchair and contact guar d assistance, repeated that 4 times. Also ambulated 50 feet and 63 feet with contact guard assistanc e using a rolling walker. She later on said she could not do it, cannot move her legs. However, she was still doing it despite saying that. Ms. Corrales is making fair progress with physical and occupational therapy. Assessment And Plan: Ms. Corrales is a 77-year-old patient in rehabilitation with lumbar spinal stenosis . She has decreased mobility, decreased physical functioning, diabetes mellitus type 2, hypertension , hyponatremia, urinary tract infection with MRSA, on meropenem and subcutaneous abscess, S1 fracture , improved lactic acidosis, elevated troponins, and anemia. Plan: 1.Continue with physical, occupational, and speech therapy for 3.5 hours, 5 of 7 days. 2.Meropenem every 8 hours 1000 mg, Senokot for constipation, Hemocyte Plus for anemia, melatonin for insomnia, lidocaine patch for muscle and joint pain, magnesium for muscle spasms, and she is also on daptomycin 400 mg every 8 hours for her abscess. Continue Ventolin inhaler for respiratory challeng es. [place] and Tylenol as needed for pain. Comorbidities That Are Impacting Her Rehabilitation: As noted, she is on multiple antibiotic medicat ions for E coli infection and she is to continue therapy all the time. She will likely be in rehabil itation, so that we will have to continue via Home Health and even potentially family training to hel p with times of admission that are after hours. She has Eliquis and while that is good for DVT proph ylaxis, she is at increased risk of hemorrhage if she has a fall, so fall precautions were strictly a dhered to with rolling walker and gait belt at all times. LB/MODL Voice ID: [id number] Report ID: [id number]
[2023-05-18] MEDS: GABAPENTIN 300 MG CAP PO SCH (19:24)
--- NOTE | 2023-05-19 00:44 | PN ---
Date of Progress Note: 05/18/2023 Pbsy-cg-[id number] Progress Note Visit. Time Of Service: 1:20 p.m. Subjective: Ms. Corrales is resting in bed. She said her lower back pain slightly worsened today as she did therapy and her medications actually have been adjusted including gabapentin now 300 mg twice da manish from 100 mg twice daily. Otherwise, she is doing okay in bed in between therapy sessions. Review of Systems: She denies any fevers, chills, nausea, vomiting. She has some pain in the back, which is chronic and noted, but that has worsened slightly, but again medications have been adjusted. She has no other c omplaints. Physical Examination: Vital Signs: Blood pressure 176/85, pulse of 102, respiratory rate 16, temperature 97.6, oxygen satu ration 96%. HEENT: She is, otherwise, normocephalic, atraumatic. Sclerae anicteric. Oropharynx is moist. Spine: Lumbar spinal region shows good hemostasis. No unexpected findings. Extremities: No edema in the extremities. Laboratory Studies: Blood sugars ranged from 123-129. X-ray/imaging: No new x-rays or imaging. Medications: Her medications have been reviewed and gabapentin again is increased to 300 mg twice da manish from 100 mg twice daily. She continues with DVT prophylaxis using Eliquis 2.5 mg twice daily, sh e has duloxetine 30 mg daily for depression and melatonin for insomnia. She is continuing on meropen em for urinary tract infection. Progress Made With Physical And Occupational Therapy: Today with her physical therapy, she was able to mobilize a wheelchair 30 feet independently with verbal cues. She did sit to supine transfer with minimum assistance, sit to stand transfers with minimum assistance. With occupational therapy, she was requiring moderate assistance with sit to supine transfer, maximal assistance while scooting in b ed. With speech therapy, temporal orientation skills were at 50% accuracy, which increased from 25% accuracy. She recalled 1 of 3 unrelated pictures after 3 minutes utilizing short-term memory skills. Ms. Corrales is making slow progress overall, but steady with her recovery from spinal stenosis and she i s requiring again significant support, but continues to do well. Assessment: Ms. Corrales is a 77-year-old patient in the rehabilitation unit with lumbar spinal stenosis . She has decreased physical functioning, diabetes mellitus, hypertension, hyponatremia, urinary tra ct infection, on meropenem and S1 fracture, anemia. Plan: 1.Continue with physical, occupational and speech for therapy 3.5 hours, 5/7 days. 2.Continue with meropenem. 3.Continue with lidocaine patch, magnesium. 4.Continue with Ventolin respiratory inhaler and pain management with [place] and again gabapentin dos e was increased. Tylenol will be used as well. Comorbidities That Are Impacting Her Rehabilitation: She does have the back pain, which is managed a s noted above with multiple modalities. She has IV antibiotics that going which will be ongoing foll owing discharge as well. She has Eliquis for DVT prophylaxis and does have to be continued for quite a bit as she is still mostly poorly mobilizing. OLIVER/MODL Voice ID: [id number] Report ID: [id number]
[2023-05-19] MEDS ORDERED: ALENDRONATE 70 MG TAB PO SCH (06:00)
[2023-05-19] MEDS ORDERED: NA CHLORIDE 0.9% 250 ML ONE (06:29)
[2023-05-20] MEDS: LIDOCAINE 4% PATCH TOP ONE (14:35)
--- NOTE | 2023-05-20 15:35 | RAD REPORT ---
EXAM DESCRIPTION: RAD - Lumbar Spine 3 Views - 05/20/2023 3:16 pm CLINICAL HISTORY: Back pain FINDINGS: Pedicular screws united by rods, anterior screws, metallic fusion cages have been placed from L4-S1. This limits evaluation at these levels due to the extensive hardware. Patient has known spondylolysis L5. There is good alignment L1- L4. Bones are osteoporotic. Mild to moderate spondylosis No fracture is seen
[2023-05-20] MEDS: DULOXETINE 30 MG CAP PO SCH (19:50)
--- NOTE | 2023-05-20 20:43 | PN ---
Date of Progress Note: 05/20/2023 Time Of Service: 1:20 p.m. Subjective: Ms. Corrales is resting in bed, at bedside. She did report some more pain in the co ccyx or pelvic region, especially when bearing weight. It is below where she had lumbar spinal surge ry. Her medication regimen was adjusted in addition to applying a pain patch to the back and she had an x-ray of lumbar spine ordered 2 views. The finding showed pedicle screws that were united by blanca s. There were anterior screws, metallic fusion cage placed from L4-S1. There is no fracture seen. Bones are noted to be osteoporotic. Moderate spondylosis. There is good alignment. She also has kn own spondylosis at L5, but no unexpected findings identified. Review of Systems: No fevers, chills. Again, there is pain in the lower back, myalgias and arthralgias in the lower shaggy k and extremities. No rash. No psychiatric issues. No dermatological issues. No constipation. So me difficulty sleeping because of pain. Physical Examination: Vital Signs: Blood pressure 134/70, pulse up to 92, respiratory rate 16, temperature 97.6, oxygen sa turation 95%. General: Ms. Corrales again is resting in bed at this point, no significant pain as she is lying in the bed. HEENT: She does appear normocephalic, atraumatic. Sclerae anicteric. Back: Lower back surgical site has good hemostasis. Extremities: No significant edema in the extremities. Laboratory Studies: Blood sugars ranged from 137 to 174. X-ray imaging is as noted above. Medications: She has had some adjustment where she has a lidocaine patch to the low back where there is some more pain noted. She will continue with the meropenem for urinary tract infection. Her Cym calli dosage was increased to 30 mg twice daily and she is also on daptomycin as noted for her infect ion. She has [place] for pain. All other medications as noted unchanged. Progress Made With Physical, Occupational, And Speech Therapy: Today with physical therapy, she ambu lated 65 feet twice with rolling walker and contact guard assistance. Sit to supine transfer done wi th standby assistance. Sit to stand transfer also with standby assistance. With occupational therap y, grooming supervision, upper body dressing setup assistance, lower body dressing maximal assistance . She was unable to complete lower extremity dressing with maximum help. With Speech recall 2 of 3 unrelated pictures after 3 minutes with minimal assistance. Organizational thinking was used for div ergent naming with 80% accuracy and maximum assistance. Ms. Corrales is making fair progress with physical, occupational and speech therapy. She was somewhat li mited by lower back pain and medications have been adjusted for that. Also, she has cognitive impair ment, which makes it difficult for her to make safe decisions and family will have to be involved whe n she is ready for discharge home. Assessment: Ms. Corrales is in the rehabilitation unit with lumbar spinal stenosis, status post surgical decompression with hardware in place as identified by two-view x-ray. She has hyponatremia, hyperte nsion, diabetes mellitus, decrease in physical functioning, decreased mobility. She has urinary trac t infection and is on 2 antibiotics including meropenem and daptomycin. Plan: 1.As noted pain medication adjusted. 2.She will continue physical, occupational, speech therapy for 3-1/2 hours, 5/7 days. 3.Continue all medications including lidocaine patch, magnesium, and sparing use of narcotics and ne uro modulators. 4.Continue for COPD Ventolin inhaler and all other medications as noted will be continued. Comorbidities That Are Impacting Her Rehabilitation: The back pain again did worsen somewhat, but me dications have been adjusted and she has x-rays showing no significant abnormalities or unexpected findings postsurgical. OLIVER/DICKSON Voice ID: [id number] Report ID: [id number]
[2023-05-21 04:33] LABS: Absolute Basophils 0.1 K/uL (0-0.5); Absolute Eosinophils 0.3 K/uL (0-0.5); Absolute Lymphocytes (CBC) 1.5 K/uL (0.7-4.9); Absolute Neutrophil 3.8 K/uL (1.8-8.0); Hematocrit 26.5 % (36.0-45.0); Hemoglobin 8.9 g/dL (12.0-15.0); Lymphocytes % 22.4 % (15.3-44.8); MCH 30.7 pg (27.0-35.0); MCHC 33.6 g/dL (32.0-36.0); MCV 91.3 fL (80-100); MPV 7.7 fL (7.6-11.3); Monocytes % 14.5 % (3.3-12.3); Neutrophils % 57.1 % (41.7-73.7); Nucleated Red Blood Cells % 0.1 % (0-0); Platelets 325 thou/uL (152-406)
[2023-05-21 04:52] LABS: Albumin 2.5 g/dL (3.4-5.0); Anion Gap 7.3 mEq/L (5.0-15.0); Magnesium 2.4 mg/dL (1.6-2.4); Potassium 4.3 mEq/L (3.5-5.1)
[2023-05-21] MEDS: ALENDRONATE 70 MG TAB PO SCH (07:29)
[2023-05-21] MEDS: LIDOCAINE 4% PATCH TOP SCH (08:21)
[2023-05-21] MEDS ORDERED: LIDOCAINE 4% PATCH TOP ONE (14:00)
[2023-05-21] MEDS ORDERED: NA CHLORIDE 0.9% 250 ML ONE (15:46)
[2023-05-21] MEDS: GABAPENTIN 300 MG CAP PO SCH (20:50)
--- NOTE | 2023-05-21 21:01 | PN ---
Date of Progress Note: 05/21/2023 Time Of Service: 1:15 p.m. Subjective: Ms. Corrales is in a chair beside the bed. is at bedside. She does seem to report significantly more pain in the coccyx and back in the perineal region. Her pain medications have bee n adjusted significantly to help mitigate this. The back x-ray that was done showed good alignment o f her fusion cage which was placed from L4-S1. No unexpected findings. There is spondylosis at L5. Review of Systems: She does report moderate back pain, some difficulty with mobilization, especially when trying to ambu late. She has some myalgias, arthralgias in the same lower back region as the pain, otherwise negati ve on a systems review. Physical Examination: Vital Signs: Blood pressure 145/72, pulse up to 102, respiratory rate 16, temperature 97.1, oxygen s aturation 95%. General: Ms. Corrales is sitting in a chair against side bed. She does appear to be in some moderate pa in, although the staff noted that the affect is not always matching with the pain with the special ac tivities as she may do all of the activities and not necessarily have the expression of pain in the f navin, but did mention pain and at times just resting will appear to be in significant pain by facial e xpression, although she has noted the pain at least previously is not significantly worse when lying down, but just mostly when transferring or standing. Otherwise, she has no focal neurological defici ts. Lungs: Clear to auscultation. Abdomen: Soft. Extremities: No significant edema in the extremities. Laboratory Studies: White blood cell count 6.7, hemoglobin 8.9, platelets 325. Sodium 138, potassiu m 4.3, chloride 107, BUN 13, creatinine 0.57, glucose ranged from 107 to 155, calcium 8.4, magnesium 2.4, albumin 2.5, prealbumin 19.0. Progress Made With Her Physical, Occupational, And Speech Therapy: Today with physical therapy, she ambulated 50 feet twice with a rolling walker, did complain of pain as noted. Completed bed mobility with contact guard assistance. [id number] transfer with contact guard assistance. With occupatio nal therapy, independent with bed mobility. Did require extra time due to complaints of pain from ed ge of bed to wheelchair to chair, rztms-of-eguee transfer, standby assistance [facility] edge [facility] bed[facility], she was independent. With physical therapy, she also ambulated 65 feet twice with a rolling walker and contact guard assistance. With her speech, oriented to temporal concepts with 5 0% accuracy. Three of 3 unrelated pictures were recalled after 3 minutes on a second attempt. Ms. Corrales is making fair progress overall with physical, occupational, and speech therapy. She still complains of significant pain in the lower back. Medications were adjusted and today she had increas e in gabapentin to 600 mg twice daily from 300 mg twice daily, tramadol 50 mg every 4 hours is still on board. She has [place] 5/325 every 4 hours along with Tylenol Extra Strength as well. She is on an tibiotics and will finish after discharge on June 08, the daptomycin 400 mg every 24 hours. In add ition, she has meropenem 1000 mg every 8 hours, also will finish on June 08. Assessment: Ms. Corrales is a 77-year-old patient in the rehabilitation unit with lumbar spinal stenosis , status post decompression with cage placement from L4-S1. She has diabetes mellitus, hypertension, decreased physical functioning, decreased mobility, urinary tract infection, on 2 antibiotics, dapto mycin and meropenem, which will continue beyond the time she is in rehabilitation. Overall, she is m aking fair progress, but still has significant pain and again pain management medications were adjust ed. Plan: 1.Again, gabapentin now 600 mg twice daily. She has duloxetine for mood stabilization and pain cont rol. She has [place], Tylenol, tramadol. 2.Continue physical, occupational, and speech therapy for 3.5 hours, 5 of 7 days. 3.Continue with nebulizer treatments as appropriate. In addition, potassium replacement, stool soft ener, nitroglycerin for intermittent chest pain. Mobic is scheduled for inflammatory issues. Contin ue with Eliquis 2.5 mg twice daily for DVT prophylaxis. Comorbidities That Are Impacting Rehabilitation: Currently, the biggest comorbid that seems to be a limiting factor is pain in the lower back, although not always matching facial expression, but pain m edications were adjusted to help mitigate the pain attempt with a target of 3/10 or less especially w hen mobilizing, transferring, and being on the toilet and being in the shower. LB/MODL Voice ID: [id number] Report ID: [id number]
[2023-05-22] MEDS: NYSTATIN PWDR 100000 UNIT/GM TOP SCH (01:00)
--- NOTE | 2023-05-22 13:31 | P.RH.PN ---
Estimated Length of Stay: 15 Expected Discharge Date: 05/26/23 Discharge Disposition Plan: Home Family Support: Yes Long-Term Goal: Mobility, Transfers, Self Care Vital Signs: Last Vital Signs Temp 97.0 F 05/22/23 08:00 Pulse 90 05/22/23 08:34 Resp 16 05/22/23 09:37 BP 147/66 H 05/22/23 08:34 Pulse Ox 97 05/22/23 09:37 Laboratory: Laboratory Last Values WBC 6.70 thou/uL (4.3-10.9) 05/21/23 04:00 RBC 2.90 M/uL (3.86-4.86) L 05/21/23 04:00 Hgb 8.9 g/dL (12.0-15.0) L 05/21/23 04:00 Hct 26.5 % (36.0-45.0) L 05/21/23 04:00 MCV 91.3 fL (80-100) 05/21/23 04:00 MCH 30.7 pg (27.0-35.0) 05/21/23 04:00 MCHC 33.6 g/dL (32.0-36.0) 05/21/23 04:00 RDW 23.0 % (12.1-15.2) H 05/21/23 04:00 Plt Count 325 thou/uL (152-406) 05/21/23 04:00 MPV 7.7 fL (7.6-11.3) 05/21/23 04:00 Neutrophils % 57.1 % (41.7-73.7) 05/21/23 04:00 Lymphocytes % 22.4 % (15.3-44.8) 05/21/23 04:00 Monocytes % 14.5 % (3.3-12.3) H 05/21/23 04:00 Eosinophils % 5.0 % (0-4.4) H 05/21/23 04:00 Basophils % 1.0 % (0-1.3) 05/21/23 04:00 Absolute Neutrophils 3.8 K/uL (1.8-8.0) 05/21/23 04:00 Absolute Lymphocytes 1.5 K/uL (0.7-4.9) 05/21/23 04:00 Absolute Monocytes 1.0 K/uL (0.1-1.3) 05/21/23 04:00 Absolute Eosinophils 0.3 K/uL (0-0.5) 05/21/23 04:00 Absolute Basophils 0.1 K/uL (0-0.5) 05/21/23 04:00 Sodium 138 mEq/L (136-145) 05/21/23 04:00 Potassium 4.3 mEq/L (3.5-5.1) 05/21/23 04:00 Chloride 107 mEq/L (98-107) 05/21/23 04:00 Carbon Dioxide 28 mEq/L (21-32) 05/21/23 04:00 Anion Gap 7.3 mEq/L (5.0-15.0) 05/21/23 04:00 BUN 13 mg/dL (7-18) 05/21/23 04:00 Creatinine 0.57 mg/dL (0.55-1.02) 05/21/23 04:00 Est GFR (CKD-EPI) 93 ml/min (=/>90) 05/21/23 04:00 Glucose 107 mg/dL (74-106) H 05/21/23 04:00 POC Glucose 151 mg/dL (65-120) H 05/22/23 11:10 Calcium 8.4 mg/dL (8.5-10.1) L 05/21/23 04:00 Magnesium 2.4 mg/dL (1.6-2.4) 05/21/23 04:00 Albumin 2.5 g/dL (3.4-5.0) L 05/21/23 04:00 Prealbumin 19.0 mg/dL (20-40) L 05/21/23 04:00 Weight: 160 lb Within Defined Parameters: Yes Wound Present: No Closed Surgical Incision Present: Yes Negative Pressure Wound Therapy Present: No Physician Update: She still has moderate pain in the lower back below the surgical site. Still on dual antibiotics. BIMS 11, SLUMS 6, met 1/4 speech goals. Improving short term memory goals. Met 2/3 short term goals. CGA for transfers and bed mobility. WC 150' with CGA. RW 50' x 2. Min assist with dressing and bathing. Summary: Patient's care plan and [facility]entiary goals have been reviewed and revised as necessary. Please see the Rehabilitation Signature page for all necessary signatures.
[2023-05-22] MEDS: GLUCERNA SHAKE 237 ML CAN PO SCH (19:29)
[2023-05-23] MEDS ORDERED: NA CHLORIDE 0.9% 250 ML ONE (22:16)
[2023-05-25] MEDS: ALTEPLASE 2 MG/VIAL IV SCH (16:00)
[2023-05-25] MEDS: WATER FOR INJ,STERILE 10 ML IV SCH (21:00)
[2023-05-25 21:12] VITALS: BP 137/64
--- NOTE | 2023-05-25 22:09 | PN ---
Date of Progress Note: 05/25/2023 Time Of Service: 1:25 p.m. Subjective: Ms. Corrales is resting in bed. She does report somewhat less pain today and her face does not show any significant grimacing. She was smiling and laughing at the time I evaluated her and not es as again doing better with less pain in the lower back. Review of Systems: She denies any fevers, chills. Mild myalgias and arthralgias in the back. No rash. No psychiatric issues. No other positives on a 10-point systems review. Physical Examination: Vital Signs: Blood pressure 135/66, pulse of 96, respiratory rate 16, temperature 97.6, oxygen satur ation 95% to 100%. Pain level was around 2 earlier today. HEENT: Ms. Corrales does appear to be normocephalic, atraumatic. Sclerae are anicteric. Oropharynx [address]. Neck: Supple. No significant edema, cyanosis noted. EXTREMITIES: Lower back surgical site has good hemostasis. Laboratory Studies: Blood sugars ranged from 114 to 121. X-ray imaging, no new x-rays or imaging. Progress Made With Her Physical, Occupational, And Speech Therapy: Today with physical therapy, she completed bed mobility independently, completed [id number] transfer with contact guard assistance . Gait training, she covered 90 feet, 70 feet with a rolling walker with contact guard assistance. She did complete 5 steps up and down with contact guard assistance. Earlier today, she covered 85 fe et twice with contact guard assistance using a rolling walker. Again, she improved her gait, she is feeling better. She did improve her BIMS score from 11-13 and SLUMS score from 6-11 and is ready to be at home with Home Health continuing. Note, with occupational therapy, independent with toilet hyg iene, bathing; lower body dressing, upper body dressing all independent, and she is again ready to di scharge home. Ms. Corrales is doing well and pain is managed and she is ready for discharge home in the morning. Assessment: Ms. Corrales is a 77-year-old patient in the rehabilitation unit with lumbar spinal stenosis status post compression and cage placement from L4-S1. She is making good progress and is ready for discharge and continuing physical therapy via Home Health. Diabetes mellitus, hypertension, decreas ed physical functioning, decreased mobility, urinary tract infection. She is on multiple antibiotics , this will be continued until late of May. She is on the daptomycin and meropenem via [facility] [place] [facility]. Her pain is much better managed. Plan: Continue with all medications for pain. Continue with antibiotics as noted. Continue Home He alth. Continue with Mobic. Continue with Eliquis for DVT prophylaxis and other comorbidities are co ntinued as well. Comorbidities That Are Impacting Rehabilitation: She is on 2 antibiotics. Those were continued at [facility]. The patient has been working well with that. Home health will be assisting. OLIVER/DICKSON Voice ID: [id number] Report ID: [id number]
[2023-05-25] MEDS ORDERED: NA CHLORIDE 0.9% 250 ML ONE (23:11)
[2023-05-26 07:17] VITALS: TEMP 96.8
== END 2023-05-26 13:05 | disposition home health service (06) | DRG 560 ==
LOC: 5TH 19:55
PROVIDERS: ADMIT Psychiatry & Neurology Neurology with Special Qualifications in Child Neurology; ATTEND Psychiatry & Neurology Neurology with Special Qualifications in Child Neurology
PROC: 02HV33Z Insertion of Infusion Device into Superior Vena Cava, Percutaneous Approach (ICD-10-PCS; principal; 2023-05-13)
DX: Z47.89 Encounter for other orthopedic aftercare (principal); E87.1 Hypo-osmolality and hyponatremia; N39.0 Urinary tract infection, site not specified; L02.91 Cutaneous abscess, unspecified; E87.20 Acidosis, unspecified; I10 Essential (primary) hypertension; R53.81 Other malaise; E11.9 Type 2 diabetes mellitus without complications; D64.9 Anemia, unspecified; B95.62 Methicillin resistant Staphylococcus aureus infection as the cause of diseases classified elsewhere; G47.00 Insomnia, unspecified; Z79.2 Long term (current) use of antibiotics
CPT/HCPCS: 36415; 36569; 71045; 72100; 80048; 82040; 82947; 83735; 84134; 85025; 92523; 93005; 94010; 97010; 97110; 97112; 97116; 97129; 97161; 97165; 97530; 97542; A4216; J0878; J1335; J1815; J2001; J2185; J2997; J7030; J7050

== ENCOUNTER 2023-05-28 16:45 | Emergency (ER) | payer OTHER ==
--- NOTE | 2023-05-28 17:40 | ER ---
Nurse's Notes [facility] Name: Estephania Corrales Age: 77 yrs Sex: Female : 1945 Arrival Date: 05/28/2023 Time: 16:45 Bed IW2 Private MD: OSIEL CORLEY Diagnosis: Encounter for adjustment and management of vascular access device-PICC Presentation: 05/27 17:20 Chief complaint: Patient states: picc line is leaking. Coronavirus screen: At this ko1 time, the client does not indicate any symptoms associated with coronavirus-19. Ebola Screen: No symptoms or risks identified at this time. Initial Sepsis Screen: Does the patient meet any 2 criteria? No. Patient's initial sepsis screen is negative. Does the patient have a suspected source of infection? No. Patient's initial sepsis screen is negative. Risk Assessment: Do you want to hurt yourself or someone else? Patient reports no desire to harm self or others. Onset of symptoms was May 28, 2023. 17:20 Method Of Arrival: Wheelchair ko1 17:20 Acuity: [place] 5 ko1 Triage Assessment: 17:22 General: Appears in no apparent distress. Behavior is calm, cooperative, appropriate ko1 for age. Pain: Denies pain. Historical: - Allergies: 17:22 No Known Allergies; ko1 - PMHx: 17:22 Chronic pain; Diabetes - IDDM; Herniated disc; High Cholesterol; Hypertension; ko1 - PSHx: 17:22 knee replacement; ko1 - Immunization history:: Adult Immunizations up to date. - Social history:: Smoking status: Patient denies any tobacco usage or history of. Screenin:22 [facility] ED Fall Risk Assessment (Adult) History of falling in the last 3 months, ko1 including since admission No falls in past 3 months (0 pts) Confusion or Disorientation No (0 pts) Intoxicated or Sedated No (0 pts) Impaired Gait No (0 pts) Mobility Assist Device Used No (0 pt) Altered Elimination No (0 pt) Score/Fall Risk Level 0 - 2 = Low Risk Oriented to surroundings, Maintained a safe environment, Educated pt \T\ family on fall prevention, incl call for assistance when getting out of bed, Assessed \T\ reinforced patient's understanding of fall precautions, Provided non-skid footwear, Hourly rounding (assess needs \T\ fall precautionary measures) done, Used ambulatory aids as needed (educated on \T\ assisted with), Used gait belt as appropriate. Abuse screen: Denies threats or abuse. Denies injuries from another. Nutritional screening: No deficits noted. Tuberculosis screening: No symptoms or risk factors identified. Assessment: 17:22 Reassessment: picc line cap is not on correctly, cleaned per protocol, flushed and ko1 recapped using sterile technique. Neuro: No deficits noted. Cardiovascular: No deficits noted. Respiratory: No deficits noted. GI: No deficits noted. : No deficits noted. EENT: No deficits noted. Derm: No deficits noted. Musculoskeletal: No deficits noted. Vital Signs: 17:20 BP 133 / 78; Pulse 84; Resp 15; Temp 97; Pulse Ox 99% ; ko1 ED Course: 16:46 Patient arrived in ED. rg4 16:46 OSIEL CORLEY is Private Physician. rg4 17:01 Anson Lock MD is Attending Physician. [facility] 17:22 Triage completed. ko1 17:22 Arm band placed on right wrist. Patient placed in the treatment room, in a wheelchair, ko1 Patient notified of wait time. 17:22 Patient has correct armband on for positive identification. Provided Education on: NA. ko1 17:22 No provider procedures requiring assistance completed. Patient did not have IV access ko1 during this emergency room visit. 17:36 OSIEL CORLEY is Referral Physician. [facility] Administered Medications: No medications were administered Medication: 17:22 VIS not applicable for this client. ko1 Outcome: 17:38 Discharge ordered by . [facility] 17:44 Discharged to home via wheelchair, with family, ko1 17:44 Condition: stable 17:44 Discharge instructions given to patient, family, Instructed on discharge instructions, follow up and referral plans. Demonstrated understanding of instructions, follow-up care, 17:44 Patient left the ED. ko1 Signatures: Anson Lock MD MD cha Garcia, Rubi rg4 Liliana Ruggiero RN RN ko1
--- NOTE | 2023-05-28 17:40 | EDPHYS ---
Physician Documentation [facility] Name: Estephania Corrales Age: 77 yrs Sex: Female : 1945 Arrival Date: 05/28/2023 Time: 16:45 Bed IW2 Private MD: OSIEL CORLEY ED Physician Anson Lock HPI: 05/27 17:32 This 77 yrs old Female presents to ER via Wheelchair with complaints of Picc estevan Line Problem. 17:32 The patient or guardian complains of PICC NOT FLUSHING. The complaints affect the left estevan tricep. Context: The problem was sustained at an unknown location. Onset: The symptoms/episode began/occurred this morning, today. Treatment prior to arrival includes: no previous treatment. Historical: - Allergies: 17:22 No Known Allergies; ko1 - PMHx: 17:22 Chronic pain; Diabetes - IDDM; Herniated disc; High Cholesterol; Hypertension; ko1 - PSHx: 17:22 knee replacement; ko1 - Immunization history:: Adult Immunizations up to date. - Social history:: Smoking status: Patient denies any tobacco usage or history of. ROS: 17:34 Constitutional: Negative for fever, chills, and weight loss, Eyes: Negative for injury, estevan pain, redness, and discharge, ENT: Negative for injury, pain, and discharge, Neck: Negative for injury, pain, and swelling, Cardiovascular: Negative for chest pain, palpitations, and edema, Respiratory: Negative for shortness of breath, cough, wheezing, and pleuritic chest pain, Abdomen/GI: Negative for abdominal pain, nausea, vomiting, diarrhea, and constipation, Back: Negative for injury and pain, : Negative for injury, bleeding, discharge, and swelling, Skin: Negative for injury, rash, and discoloration, Neuro: Negative for headache, weakness, numbness, tingling, and seizure, Psych: Negative for depression, anxiety, suicide ideation, homicidal ideation, and hallucinations, Allergy/Immunology: Negative for hives, rash, and allergies, Endocrine: Negative for neck swelling, polydipsia, polyuria, polyphagia, and marked weight changes, Hematologic/Lymphatic: Negative for swollen nodes, abnormal bleeding, and unusual bruising, 17:34 MS/extremity: Positive for pain, of the left bicep and left tricep, Exam: 17:34 Constitutional: This is a well developed, well nourished patient who is awake, alert, estevan and in no acute distress. Head/Face: Normocephalic, atraumatic. Eyes: Pupils equal round and reactive to light, extra-ocular motions intact. Lids and lashes normal. Conjunctiva and sclera are non-icteric and not injected. Cornea within normal limits. Periorbital areas with no swelling, redness, or edema. ENT: Nares patent. No nasal discharge, no septal abnormalities noted. Tympanic membranes are normal and external auditory canals are clear. Oropharynx with no redness, swelling, or masses, exudates, or evidence of obstruction, uvula midline. Mucous membranes moist. Neck: Trachea midline, no thyromegaly or masses palpated, and no cervical lymphadenopathy. Supple, full range of motion without nuchal rigidity, or vertebral point tenderness. No Meningismus. Chest/axilla: Normal chest wall appearance and motion. Nontender with no deformity. No lesions are appreciated. Cardiovascular: Regular rate and rhythm with a normal S1 and S2. No gallops, murmurs, or rubs. Normal PMI, no JVD. No pulse deficits. Respiratory: Lungs have equal breath sounds bilaterally, clear to auscultation and percussion. No rales, rhonchi or wheezes noted. No increased work of breathing, no retractions or nasal flaring. Abdomen/GI: Soft, non-tender, with normal bowel sounds. No distension or tympany. No guarding or rebound. No evidence of tenderness throughout. Back: No spinal tenderness. No costovertebral tenderness. Full range of motion. Female : Normal external genitalia. Skin: Warm, dry with normal turgor. Normal color with no rashes, no lesions, and no evidence of cellulitis. Neuro: Awake and alert, GCS 15, oriented to person, place, time, and situation. Cranial nerves II-XII grossly intact. Motor strength 5/5 in all extremities. Sensory grossly intact. Cerebellar exam normal. Normal gait. Psych: Awake, alert, with orientation to person, place and time. Behavior, mood, and affect are within normal limits. 17:34 Musculoskeletal/extremity: Extremities: grossly normal except: PICC, DRESSED AND FLUSHED WITHOUT DIFFICULTY, Vital Signs: 17:20 BP 133 / 78; Pulse 84; Resp 15; Temp 97; Pulse Ox 99% ; ko1 MDM: 17:01 Patient medically screened. [facility] 17:35 Differential Diagnosis PICC DYSFUNCTION. Data reviewed: vital signs, nurses notes. I estevan considered the following discharge prescriptions or medication management in the emergency department Medications were administered in the Emergency Department. See MAR. Test considered but Not performed: Labs: NO LABS. X-ray: NO X RAYS. Care significantly affected by the following chronic conditions: Diabetes, Hypertension, Obesity, HERNIATED DISC. Administered Medications: No medications were administered Disposition Summary: 05/28/23 17:38 Discharge Ordered Notes: Location: Home estevan Problem: new estevan Symptoms: have improved estevan Condition: Stable estevan Diagnosis - Encounter for adjustment and management of vascular access device - PICC estevan Followup: estevan - With: OSIEL CORLEY - When: 2 - 3 days - Reason: Recheck today's complaints, Continuance of care, Re-evaluation by your physician Followup: estevan - With: Private Physician - When: 2 - 3 days - Reason: Recheck today's complaints, Continuance of care, Re-evaluation by your physician Discharge Instructions: - Discharge Summary Sheet estevan - Peripheral Intravenous Catheter Placement, Adult estevan - Tunneled Central Venous Catheter Flushing Guide estevan - Peripheral Intravenous Catheter Placement, Adult, Care After estevan Forms: - Medication Reconciliation Form estevan - Thank You Letter estevan - Antibiotic Education estevan - Prescription Opioid Use estevan - Patient Portal Instructions [facility] - Leadership Thank You Letter estevan Signatures: Anson Lock MD MD cha Oliver, Kathy, RN RN ko1
[2023-05-28 18:04] VITALS: BP 133/78; TEMP 97; O2SAT 99
== END 2023-05-28 17:44 | disposition home or self-care (01) ==
LOC: ER 16:45
DX: Z45.2 Encounter for adjustment and management of vascular access device (principal)
CPT/HCPCS: 99282

== ENCOUNTER 2023-06-12 13:33 | Inpatient (IN) | payer OTHER ==
[2023-06-12 14:42] LABS: Absolute Eosinophils 0.2 K/uL (0-0.5); Absolute Monocytes 0.6 K/uL (0.1-1.3); Absolute Neutrophil 3.3 K/uL (1.8-8.0); Basophils % 0.8 % (0-1.3); Eosinophils % 3.6 % (0-4.4); Hematocrit 25.2 % (36.0-45.0); Hemoglobin 8.5 g/dL (12.0-15.0); Lymphocytes % 31.7 % (15.3-44.8); MCH 30.4 pg (27.0-35.0); MCV 89.5 fL (80-100); Monocytes % 10.4 % (3.3-12.3); Neutrophils % 53.5 % (41.7-73.7); Platelets 424 thou/uL (152-406); RBC Red Blood Cell Count 2.81 M/uL (3.86-4.86); Red Cell Distribution Width 17.7 % (12.1-15.2)
[2023-06-12 15:03] LABS: PT Prothrombin Time 12.6 SECONDS (9.5-12.5); Protime INR 1.15
[2023-06-12 15:15] LABS: Albumin 2.4 g/dL (3.4-5.0); Albumin/Globulin Ratio 0.6 (1.1-1.8); Anion Gap 10.8 mEq/L (5.0-15.0); Bilirubin Direct 0.1 mg/dL (0-0.2); Bilirubin Indirect, Calculated 0.4 mg/dL (0.2-0.8); Bilirubin Total 0.5 mg/dL (0.2-1.0); Globulin 4.3 g/dL (2.3-3.5); Magnesium 1.9 mg/dL (1.6-2.4); Potassium 3.8 mEq/L (3.5-5.1); Protein, Total 6.7 g/dL (6.4-8.2); Troponin High Sensitivity 7.4 pg/mL (<58.9)
--- NOTE | 2023-06-12 15:39 | RAD REPORT ---
EXAM DESCRIPTION: CT - Head Brain Wo Cont - 06/12/2023 2:11 pm CLINICAL HISTORY: WEAKNESS COMPARISON: Head Brain Wo Cont dated 12/19/2021 TECHNIQUE: Noncontrast head CT images were obtained without IV contrast. Multiplanar reformats were generated and reviewed. All CT scans are performed using dose optimization technique as appropriate and may include automated exposure control or mA/KV adjustment according to patient size. FINDINGS: No intracranial hemorrhage, mass, or edema. Midline structures are unremarkable. Normal ventricular caliber for age. Corado-white matter differentiation is preserved, without evidence of acute infarct. No abnormal extra- axial fluid collections. Mastoid air cells and visualized portions of the paranasal sinuses are clear. No acute bony findings. IMPRESSION: No evidence of an acute intracranial process.
--- NOTE | 2023-06-12 15:58 | RAD REPORT ---
EXAM DESCRIPTION: [facility] Single View06/12/2023 2:36 pm CLINICAL HISTORY: COUGH COMPARISON: Chest Single View dated 05/13/2023; Chest Single View dated 05/12/2023; Chest Pa And Lat ( 2 Views) dated 09/17/2022; Chest Pa And Lat (2 Views) dated 05/14/2022 TECHNIQUE: Portable AP view of the chest. FINDINGS: The lungs are clear. No pneumothorax or effusion. The cardiomediastinal contours are unch anged. Stable tortuosity of the thoracic aorta. IMPRESSION: No acute cardiopulmonary process.
[2023-06-12 17:23] LABS: Specific Gravity 1.005 (1.005-1.030); Sqamous Epithelial <5 /HPF (None Seen); Urine Bacteria None Seen /HPF (<20); Urine Bilirubin NEGATIVE (Negative); Urine Blood Negative (Negative); Urine Clarity Turbid (Clear); Urine Color Colorless (Yellow); Urine Culture Reflex Order NOT NEEDED; Urine Glucose NEGATIVE (Negative); Urine Ketones NEGATIVE (Negative); Urine Microscopic Reflex YN ORDER UMIC; Urine Mucus Slight /HPF (None Seen); Urine Nitrite NEGATIVE (Negative); Urine Protein NEGATIVE (Negative); Urine RBC <5 /HPF (None Seen); Urine Urobilinogen Normal (Normal); Urine WBC <5 /HPF (<5); Urine pH 6.5 (5.0-7.0)
--- NOTE | 2023-06-12 18:32 | EDPHYS ---
Physician Documentation [facility] Name: Estephania Corrales Age: 77 yrs Sex: Female : 1945 Arrival Date: 06/12/2023 Time: 13:33 Bed 5 Private MD: ED Physician Anson Lock HPI: 06/11 14:00 This 77 yrs old Female presents to ER via EMS with complaints of Altered cp Mental Status. 14:00 The patient presents with decreased responsiveness, near syncope, weakness. cp 14:00 Onset: The symptoms/episode began/occurred today. cp 14:00 Possible causes: low blood sugar, low blood pressure. cp 14:00 Associated signs and symptoms: Pertinent positives: weakness, near syncope, Pertinent cp negatives: abdominal pain, chest pain, fever. Current symptoms: In the emergency department the patient's symptoms have improved, moderately. Patient's baseline: Neuro: alert and fully oriented, Motor: no deficits, Ambulation: walks without assistance, Speech: normal. Historical: - Allergies: 14:50 No Known Allergies; iw - PMHx: 13:46 Chronic pain; Diabetes - IDDM; Herniated disc; High Cholesterol; Hypertension; iw - PSHx: 13:46 knee replacement; iw - Immunization history:: Adult Immunizations up to date. - Infectious Disease History:: Denies. - Social history:: Smoking status: Patient denies any tobacco usage or history of. ROS: 14:05 Constitutional: Negative for body aches, chills, fever, poor PO intake, cp 14:05 Eyes: Negative for injury, pain, redness, and discharge, cp 14:05 ENT: Negative for drainage from ear(s), ear pain, sore throat, difficulty swallowing, difficulty handling secretions, 14:05 Cardiovascular: Negative for chest pain, edema, palpitations, 14:05 Respiratory: Negative for cough, shortness of breath, wheezing, 14:05 Abdomen/GI: Negative for abdominal pain, vomiting, diarrhea, constipation, 14:05 : Negative for urinary symptoms, 14:05 Neuro: Positive for near syncope, weakness, Negative for headache, numbness, 14:05 All other systems are negative, Exam: 14:10 Constitutional: The patient appears in no acute distress, alert, awake, cp non-diaphoretic, non-toxic, well developed, well nourished, 14:10 Head/Face: Normocephalic, atraumatic. cp 14:10 Eyes: Periorbital structures: appear normal, Pupils: equal, round, and reactive to light and accomodation, Extraocular movements: intact throughout, Conjunctiva: normal, no exudate, no injection, Sclera: no appreciated abnormality, Lids and lashes: appear normal, bilaterally, 14:10 ENT: External ear(s): are unremarkable, Nose: is normal, Mouth: Lips: moist, Oral mucosa: pink and intact, moist, Posterior pharynx: Airway: no evidence of obstruction, patent, erythema, is not appreciated, exudate, is not appreciated, 14:10 Neck: ROM/movement: is normal, is supple, without pain, no range of motions limitations, no meningismus, 14:10 Chest/axilla: Inspection: normal, 14:10 Cardiovascular: Rate: normal, Rhythm: regular, Edema: is not appreciated, JVD: is not appreciated, 14:10 Respiratory: the patient does not display signs of respiratory distress, Respirations: normal, no use of accessory muscles, no retractions, labored breathing, is not present, Breath sounds: are clear throughout, no decreased breath sounds, no stridor, no wheezing, 14:10 Abdomen/GI: Inspection: abdomen appears normal, Bowel sounds: active, all quadrants, Palpation: abdomen is soft and non-tender, in all quadrants, 14:10 Skin: cellulitis, is not appreciated, no rash present. 14:10 Neuro: Orientation: to person, place, situation, Mentation: able to follow commands, Cerebellar function: Romberg testing is negative, Motor: moves all fours, no focal deficits, Sensation: is normal, 14:23 ECG was reviewed by the Attending Physician. cp 16:16 Abdomen/GI: Rectal exam: rectal tone normal, Stool: brown, hemorrhoid(s), are not cp appreciated, Vital Signs: 13:47 BP 81 / 42; Pulse 63; Resp 16; Temp 98(O); Pulse Ox 100% on R/A; iw 14:20 BP 110 / 56; iw 14:49 BP 114 / 60; Pulse 62; Resp 16; Pulse Ox 97% on R/A; iw 16:20 BP 154 / 64; Pulse 69; Resp 16; Pulse Ox 98% on R/A; iw 18:19 BP 119 / 59; Pulse 81; Resp 16; Pulse Ox 100% on R/A; iw 20:12 Weight 58.97 kg; Height 5 ft. 3 in. ; rv1 20:12 Body Mass Index 23.03 (58.97 kg, 160.02 cm) rv1 MDM: 13:45 Patient medically screened. [facility] 18:33 Management of patient was discussed with the following: Hospitalist: DR Shira jeff cp admit after discussion. 18:35 Data reviewed: vital signs, nurses notes, lab test result(s), EKG, radiologic studies, cp CT scan, plain films. 18:35 Consideration of Admission/Observation Patient was admitted/placed on observation. cp Independent interpretation of the following test(s) in the Emergency Department EKG: See my EKG interpretation above. Care significantly affected by the following chronic conditions: Diabetes, Hypertension. Counseling: I had a detailed discussion with the patient and/or guardian regarding the historical points, exam findings, and any diagnostic results supporting the discharge/admit diagnosis, lab results, radiology results, the need for further work-up and treatment in the hospital. Response to treatment: the patient's symptoms have markedly improved after treatment. 06/11 13:45 Order name: Basic Metabolic Panel; Complete Time: 15:19 [facility] 06/11 15:19 Interpretation: Normal except: GLUC 125; GFR 77; CA 7.9. cp 06/11 13:45 Order name: CBC with Diff; Complete Time: 14:53 [facility] 06/11 14:53 Interpretation: Normal except: RBC 2.81; HGB 8.5; HCT 25.2; PLT 424; RDW 17.7; MPV 7.0. 06/11 13:45 Order name: LFT's; Complete Time: 15:19 estevan 06/11 15:19 Interpretation: Normal except: ALK 153; ALB 2.4; GLOB 4.3; A/G 0.6. cp 06/11 13:45 Order name: Magnesium; Complete Time: 15:19 estevan 06/11 13:45 Order name: NT PRO-BNP; Complete Time: 15:19 estevan 06/11 13:45 Order name: PT-INR; Complete Time: 15:19 estevan 06/11 13:45 Order name: Troponin HS; Complete Time: 15:19 estevan 06/11 15:20 Interpretation: Reviewed. 06/11 13:45 Order name: Lipase; Complete Time: 15:19 [facility] 06/11 13:46 Order name: Urinalysis w/ reflexes; Complete Time: 17:53 [facility] 06/11 18:05 Interpretation: Reviewed. 06/11 13:53 Order name: Blood Culture Adult (2) cp 06/11 13:53 Order name: CMP cp 06/11 13:53 Order name: Lactate w/ 2H reflex if indic.; Complete Time: 15:19 06/11 15:19 Interpretation: Abnormal: LAC 2.1. 06/11 13:53 Order name: Ptt, Activated cp 06/11 14:37 Order name: Glucose, Ancillary Testing; Complete Time: 14:53 EDNC 06/11 15:01 Order name: CREATININE WHOLE BLOOD; Complete Time: 15:19 EDNC 06/11 17:23 Order name: Lactate w/ 2H reflex if indic. cp 06/11 18:10 Order name: Lactate Sepsis 2 HR Follow-up EDNC 06/11 19:53 Order name: CBC with Automated Diff EDMS 06/11 19:53 Order name: CBC with Automated Diff EDMS 06/11 19:53 Order name: Comprehensive Metabolic Panel EDMS 06/11 19:53 Order name: Comprehensive Metabolic Panel EDMS 06/11 19:53 Order name: Troponin High Sensitivity EDNC 06/11 19:53 Order name: Troponin High Sensitivity EDNC 06/11 19:53 Order name: Blood Culture EDNC 06/11 13:45 Order name: XRAY Chest (1 view); Complete Time: 15:58 [facility] 06/11 15:59 Interpretation: Report review. 06/11 13:54 Order name: CT Head Brain wo Cont; Complete Time: 15:46 06/11 15:59 Interpretation: Report reviewed. 06/11 13:53 Order name: EKG; Complete Time: 13:53 06/11 13:45 Order name: Cardiac monitoring; Complete Time: 14:33 [facility] 06/11 13:45 Order name: EKG - Nurse/Tech; Complete Time: 14:35 [facility] 06/11 13:45 Order name: IV Saline Lock; Complete Time: 14:32 [facility] 06/11 13:45 Order name: Labs collected and sent; Complete Time: 14:33 [facility] 06/11 13:45 Order name: O2 Per Protocol; Complete Time: 14:33 est[place]an 06/11 13:45 Order name: O2 Sat Monitoring; Complete Time: 14:33 est[place]an 06/11 13:53 Order name: Accucheck; Complete Time: 14:35 cp 06/11 13:53 Order name: IV Saline Lock - Large Bore; Complete Time: 14:35 cp 06/11 13:53 Order name: Vital Signs; Complete Time: 14:39 cp EC:23 Rate is 60 beats/min. Rhythm is regular. OH interval is normal. QRS interval is normal. cp QT interval is normal. T waves are Inverted in lead aVR. Interpreted by me. Reviewed by me. Administered Medications: 13:45 Drug: NS 0.9% IV 1000 ml IV at 1 bolus Per protocol; 1000 mL bolus Route: IV; Rate: 1 iw bolus; Site: right antecubital; 14:48 Drug: NS 0.9% IV 1000 ml IV at 1 bolus Per protocol; 1000 mL bolus Route: IV; Rate: 1 iw bolus; Site: right antecubital; Disposition Summary: 06/12/23 18:31 Hospitalization Ordered Notes: Hospitalization Status: Observation cp Provider: Krunal Silva cp Location: Telemetry/MedSurg (observation) cp Condition: Stable cp Problem: new cp Symptoms: have improved cp Bed/Room Type: Standard Room Assignment: 414(06/12/23 20:06) rv1 Diagnosis - Weakness cp - Syncope Near cp Forms: - Medication Reconciliation Form cp - SBAR form cp - Leadership Thank You Letter cp Signatures: Dispatcher [employer] EDMS Anson Lock MD MD cha Williams, Irene, RN RN iw Jese Gonzalez, CHARACTER ACTRESS-C CHARACTER ACTRESS-Cla1 Anson Guerra PA PA cp Jose Rosales MD MD rn3 Nunu Morel rv1 Corrections: (The following items were deleted from the chart) 13:46 13:46 BASIC METABOLIC PANEL+C.LAB.BRZ ordered. EDMS EDMS 13:46 13:46 CBC+H.LAB.BRZ ordered. EDMS EDMS 13:46 13:46 HEPATIC FUNCTION+C.LAB.BRZ ordered. EDMS EDMS 13:46 13:46 MAGNESIUM+C.LAB.BRZ ordered. EDMS EDMS 13:46 13:46 PROBNP+C.LAB.BRZ ordered. EDMS EDMS 13:46 13:46 PROTIME (+INR)+COAG.LAB.BRZ ordered. EDMS EDMS 13:46 13:46 Troponin High Sensitivity+C.LAB.BRZ ordered. EDMS EDMS 13:46 13:46 LIPASE+C.LAB.BRZ ordered. EDMS EDMS 13:46 13:46 Chest Single View+RAD.RAD.BRZ ordered. EDMS EDMS 13:46 13:46 Urinalysis+U.LAB.BRZ ordered. EDMS EDMS 13:53 13:53 BLOOD CULTURE*+BA.LAB.BRZ ordered. EDMS EDMS 13:53 13:53 COMPREHENSIVE METABOLIC PANEL+C.LAB.BRZ ordered. EDMS EDMS 13:53 13:53 LACTATE+C.LAB.BRZ ordered. EDMS EDMS 13:53 13:53 PTT, ACTIVATED+COAG.LAB.BRZ ordered. EDMS EDMS 20:06 18:31 cp rv1
--- NOTE | 2023-06-12 18:32 | ER ---
Nurse's Notes [facility] Name: Estephania Corrales Age: 77 yrs Sex: Female : 1945 Arrival Date: 06/12/2023 Time: 13:33 Bed 5 Private MD: Diagnosis: Weakness;Syncope Near Presentation: 06/11 13:44 Chief complaint: EMS states: toned out for AMS possible blood sugar problem , pt is iw drowsy but responds appropriately , [id number], BP was 63 systolic on scene, EMS started IVF, up to 80's systolic on arrival to ER. Coronavirus screen: At this time, the client does not indicate any symptoms associated with coronavirus-19. Ebola Screen: Patient negative for fever greater than or equal to 101.5 degrees Fahrenheit, and additional compatible Ebola Virus Disease symptoms Patient denies exposure to infectious person. Patient denies travel to an Ebola-affected area in the 21 days before illness onset. No symptoms or risks identified at this time. Initial Sepsis Screen: Does the patient meet any 2 criteria? No. Patient's initial sepsis screen is negative. Does the patient have a suspected source of infection? No. Patient's initial sepsis screen is negative. Risk Assessment: Do you want to hurt yourself or someone else? Patient reports no desire to harm self or others. Onset of symptoms was June 12, 2023. 13:44 Method Of Arrival: EMS: [facility] iw 13:44 Acuity: [place] 2 iw Historical: - Allergies: 14:50 No Known Allergies; iw - PMHx: 13:46 Chronic pain; Diabetes - IDDM; Herniated disc; High Cholesterol; Hypertension; iw - PSHx: 13:46 knee replacement; iw - Immunization history:: Adult Immunizations up to date. - Infectious Disease History:: Denies. - Social history:: Smoking status: Patient denies any tobacco usage or history of. Screenin:50 [facility] ED Fall Risk Assessment (Adult) History of falling in the last 3 months, iw including since admission Confusion or Disorientation Yes (5 pts). Abuse screen: Denies threats or abuse. Denies injuries from another. Nutritional screening: No deficits noted. Tuberculosis screening: No symptoms or risk factors identified. Assessment: 14:00 General: Appears in no apparent distress. Behavior is cooperative, drowsy. Pain: iw Complains of pain in head. Neuro: Level of Consciousness is awake, obeys commands, Oriented to person, place, time, situation, Moves all extremities. Cardiovascular: Patient's skin is warm and dry. Respiratory: Respiratory effort is even, unlabored, Respiratory pattern is regular, symmetrical. GI: Abdomen is flat, non-distended. Derm: Skin is healthy with good turgor, Skin is normal. Musculoskeletal: Range of motion: intact in all extremities. 14:50 Reassessment: Patient appears in no apparent distress at this time. Patient and/or iw family updated on plan of care and expected duration. Pain level reassessed. Patient is alert, oriented x 3, equal unlabored respirations, skin warm/dry/pink. water given, daughter at bedside. 16:12 Reassessment: assisted to bathroom via wheelchair , urine collected. iw 16:20 Reassessment: Patient appears in no apparent distress at this time. Patient and/or iw family updated on plan of care and expected duration. Pain level reassessed. Patient is alert, oriented x 3, equal unlabored respirations, skin warm/dry/pink. Patient states feeling better. Patient states symptoms have improved. 18:19 Reassessment: Patient appears in no apparent distress at this time. Patient and/or iw family updated on plan of care and expected duration. Pain level reassessed. Patient is alert, oriented x 3, equal unlabored respirations, skin warm/dry/pink. Vital Signs: 13:47 BP 81 / 42; Pulse 63; Resp 16; Temp 98(O); Pulse Ox 100% on R/A; iw 14:20 BP 110 / 56; iw 14:49 BP 114 / 60; Pulse 62; Resp 16; Pulse Ox 97% on R/A; iw 16:20 BP 154 / 64; Pulse 69; Resp 16; Pulse Ox 98% on R/A; iw 18:19 BP 119 / 59; Pulse 81; Resp 16; Pulse Ox 100% on R/A; iw 20:12 Weight 58.97 kg; Height 5 ft. 3 in. ; rv1 20:12 Body Mass Index 23.03 (58.97 kg, 160.02 cm) rv1 ED Course: 13:44 Patient arrived in ED. iw 13:44 Marissa Deras RN is Primary Nurse. iw 13:45 Anson Lock MD is Attending Physician. [facility] 13:46 Triage completed. iw 13:51 Anson Guerra PA is PHCP. cp 14:12 CT Head Brain wo Cont In Process Unspecified. EDMS 14:15 Maintain EMS IV. Dressing intact. Good blood return noted. Site clean \T\ dry. Gauge \T\ iw site: 20 RAC. 14:30 Initial lab(s) drawn, by me, sent to lab. First set of blood cultures drawn EKG done, bc6 by ED staff, reviewed by Anson YUSUF. 14:35 Blood Culture Adult (2) Sent. bc6 14:35 CMP Sent. bc6 14:35 Lactate w/ 2H reflex if indic. Sent. bc6 14:35 Ptt, Activated Sent. bc6 14:35 Inserted saline lock: 22 gauge in right upper arm, using aseptic technique. Blood bc6 collected. 14:38 XRAY Chest (1 view) In Process Unspecified. EDMS 14:51 Patient has correct armband on for positive identification. Provided Education on: . iw Client placed on continuous cardiac and pulse oximetry monitoring. NIBP monitoring applied. quality assurance monitor chassis on. 18:31 Krunal Silva MD is Hospitalizing Provider. cp 19:17 Report given to CLAIR Brock. iw 21:16 Malvin Ashley RN is Primary Nurse. rv 21:16 No provider procedures requiring assistance completed. Inserted saline lock: 22 gauge rv in right hand, using aseptic technique. Patient admitted, IV remains in place. Administered Medications: 13:45 Drug: NS 0.9% IV 1000 ml IV at 1 bolus Per protocol; 1000 mL bolus Route: IV; Rate: 1 iw bolus; Site: right antecubital; 14:48 Drug: NS 0.9% IV 1000 ml IV at 1 bolus Per protocol; 1000 mL bolus Route: IV; Rate: 1 iw bolus; Site: right antecubital; Medication: 16:21 VIS not applicable for this client. iw Outcome: 18:31 Decision to Hospitalize by Provider. cp 21:17 Admitted to Tele accompanied by tech, room 414, Other report faxed and received by nadir Ling rN 21:17 Condition: good 21:17 Instructed on the need for admit, 21:17 Patient left the ED. rv Signatures: Dispatcher [employer] EDMS Anson Lock MD MD cha Williams, Irene, CLAIR RN iw Anson Guerra PA PA cp Vicente, Ronaldo, CLAIR RN rv Nunu Morel rv1 Helen [id number] Corrections: (The following items were deleted from the chart) 14:49 13:47 BP 81 / 42; Pulse 63bpm; Resp 16bpm; Pulse Ox 100% RA; iw iw
--- NOTE | 2023-06-12 19:40 | P.HP ---
Certification for Inpatient Patient admitted to: Observation With expected LOS: <2 Midnights Patient will require the following post-hospital care: None Practitioner: I am a practitioner with admitting privileges, knowledge of patient current condition, hospital course, and medical plan of care. Services: Services provided to patient in accordance with Admission requirements found in Title 42 Section 412.3 of the Code of Federal Regulations Patient History Date of Service: 06/13/23 Reason for admission: Altered mental status with drowsiness and near syncope History of Present Illness: 77-year-old female with history of hypertension diabetes, mild cognitive impairment, resides with family at baseline, recent L4 S1 fusion and laminectomy 2 months ago, status post Reo hospitalized for presumed infection of the laminectomy site, diagnosed by ID to have discitis and recommended 6 weeks of antibiotics until 06/09/23. Patient was subsequently also transferred to rehab and received PT and then discharged to home PT about a week ago.Today She presented because of her near syncope state with confusion and incoherent speech as witnessed by the son. Son reported patient was nearly slumped and repeatedly almost falling over in her wheelchair whenever he prop her up . No reported seizure lack of responsiveness shortness of breath or chest pain was reported. Patient feels she was more sleepy rather than passing out . She states she has been having worsening low back pain radiating to her buttocks and to the thigh since after her surgery. She reported pain has gotten worse recently. She was seen in urgent care 2 days ago because of worsening pain symptoms. She says she received a steroid injection in her buttocks as well as a hide gabapentin was increased from 600 twice daily to 800 3 times daily. She is very worried about the pain now. She is conversant and able to give good history. On arrival in the ED blood pressure was low at 81/42, she received 1 L normal saline bolus and blood pressure improved to 154/76 now. Pulse was nontachycardic at 76, afebrile, EKG shows normal sinus rhythm borderline QTc but no ST segment changes. Troponin was negative. Lactic acid was mildly elevated at 2.1 but repeat trending down to normal range. WBC was normal but hemoglobin of 8.5, BMP shows normal creatinine. Alkaline phosphatase was mildly elevated at 153 but normal AST and ALT. Patient has been admitted for metabolic encephalopathy as well as hypotension Allergies vancomycin Allergy (Verified 06/12/23 22:47) Anaphylaxis Home Medications: Albuterol Inhaler [Ventolin Inhaler*] 2 puff IH QID 05/12/23 Alendronate Sodium 70 mg PO UD 05/12/23 Hydrocodone 5/APAP 325 [[place] 5/325*] 1 tab PO Q4H PRN 05/12/23 Lidocaine 4% Patch [Lidoderm 5% Patch*] 1 patch TD DAILY 05/12/23 Losartan Potassium 100 mg PO DAILY 05/12/23 Meloxicam [Mobic] 15 mg PO DAILY 05/12/23 Montelukast [Singulair*] 10 mg PO DAILY 05/12/23 Nitroglycerin 0.4 mg SL UD PRN 05/12/23 hydroCHLOROthiazide [Hydrochlorothiazide*] 12.5 mg PO DAILY 05/12/23 Ferrous Sulfate [Ferrous Sulfate*] 325 mg PO DAILY tab 05/26/23 Gabapentin 600 mg PO BID #60 05/26/23 Glucerna Shake [Glucerna*] 237 ml PO BID can 05/26/23 Iron/FA/Vit B-Com W/C [Hemocyte Plus*] 1 tab PO DAILY WITH BREAKFAST #30 tab 05/26/23 Lidocaine 4% Patch [Lidoderm 5% Patch*] 2 patch TOP DAILY pat 05/26/23 Magnesium Oxide [Mag 0X*] 400 mg PO BID #60 tab 05/26/23 Nystatin Powder [Mycostatin (Powder)*] 1 appl TOP BID #1 bottle 05/26/23 Potassium Oral Tab [Klor-Con 10 mEq Tab*] 20 meq PO DAILY #60 tab 05/26/23 traMADol HCL [Ultram*] 50 mg PO Q4H PRN #30 tab 05/26/23 - Past Medical/Surgical History Diabetic: Yes -: HTN -: NIDDM -: HYPERLIPIDEMIA -: HERNIATED DISCS X3 -: GLAUCOMA -: anemia -: uti -: mrsa wound -: anaphylactic rxn vanco - unresponsive -: CHOLECYSTECTOMY -: APPENDECTOMY -: SEBAS KNEE REPLACEMENT -: ABD HERNIA SURGERY -: X2 - Family History Father -: Heart disease, Stroke - Social History Smoking Status: Never smoker Alcohol use: No CD- Drugs: No Caffeine use: Yes Place of Residence: Home Review of Systems General: Weakness Musculoskeletal: Back Pain Neurological: Change in Speech Physical Examination - Physical Exam General: Alert, In no apparent distress, Oriented x3, Other (Elderly female, conversant, awake and oriented) HEENT: Atraumatic, Normocephalic, PERRLA Neck: Supple, 2+ carotid pulse no bruit, JVD not distended Respiratory: Clear to auscultation bilaterally, Normal air movement Cardiovascular: Normal pulses, Regular rate/rhythm, Normal S1 S2 Gastrointestinal: Normal bowel sounds, Soft and benign, Non-distended, No ascites, No tenderness Musculoskeletal: No clubbing, No swelling Integumentary: Other (Clean scar over lower lumbar/sacral area, tenderness around the S1 region bilaterally) Neurological: Normal strength at 5/5 x4 extr, Cranial nerves 3-12 intact - Studies Laboratory Data (last 24 hrs) 06/12/23 06/12/23 06/12/23 14:30 14:30 14:30 WBC 6.20 Hgb 8.5 L Hct 25.2 L Plt Count 424 H PT 12.6 H INR 1.15 Sodium 138 Potassium 3.8 BUN 15 Creatinine 0.79 Glucose 125 H Magnesium 1.9 Total Bilirubin 0.5 AST 25 ALT 21 Alkaline Phosphatase 153 H Lipase 20 Assessment and Plan - Problems (Diagnosis) (1) Chronic lower back pain Current Visit: Yes Status: Acute (2) Metabolic encephalopathy Current Visit: Yes Status: Acute (3) Diabetes Onset Date: 09/19/14 Current Visit: No Status: Chronic Qualifiers: Diabetes mellitus type: type 2 Diabetes mellitus medical terminologist insulin use: with correction use Diabetes mellitus complication status: without complication Qualified Code(s): E11.9 - Type 2 diabetes mellitus without complications; Z79.4 - penitentiary (current) use of insulin (4) Hypertension Current Visit: No Status: Chronic Qualifiers: Hypertension type: essential hypertension - Plan Impression 1 metabolic encephalopathydue to recent pain medication adjustment, likely due to gabapentin dose increased 2 transient hypotensionlikely related to pain meds use 3 diabetes mellitus 4 status post fusion and laminectomycomplicated with infection 5 anemia of recent surgery/chronic disease 6 hypertension 7 history of mild cognitive impairmentlucid and conversant now Plan 1 will admit to observation status With decreased dose of gabapentin Add lidocaine patch to lumbosacral region for better pain control with minimal risk of sedation and metabolic encephalopathy Add low-dose muscle relaxant with Flexeril and follow Given unclear if patient actually completed 6 weeks course of meropenem prescribed for postlaminectomy infection, will obtain blood culture and may consider MRI of the lower back to rule out occult osteomyelitis Gentle IV fluid Insulin sliding scale with Accu-Chek Resume home blood pressure and diabetic regimen Subcutaneous Lovenox for DVT prophylaxis Still low I hemoglobin, follow iron level, monitor trend Advance directivefull code Patient already have home physical therapy, obtain inpatient PT while here - Advance Directives Does patient have a Living Will: No Does patient have a Durable POA for Healthcare: No
[2023-06-12] MEDS ORDERED: ONDANSETRON 4 MG/2 ML VIAL IV PRN (19:43)
[2023-06-12] MEDS ORDERED: ACETAMINOPHEN 500 MG TAB PO PRN (19:43)
[2023-06-12 20:17] LABS: Albumin 2.4 g/dL (3.4-5.0); Anion Gap 9.5 mEq/L (5.0-15.0); Bilirubin Total 0.5 mg/dL (0.2-1.0); Potassium 3.5 mEq/L (3.5-5.1); Protein, Total 6.5 g/dL (6.4-8.2)
[2023-06-12 20:18] LABS: Albumin/Globulin Ratio 0.6 (1.1-1.8); Globulin 4.1 g/dL (2.3-3.5)
[2023-06-12] MEDS: INSULIN REGULAR (HUMAN) 100 UNIT/ML SQ SCH (21:00)
[2023-06-12] MEDS: GABAPENTIN 300 MG CAP PO SCH (21:56)
[2023-06-12] MEDS: FAMOTIDINE 20 MG TAB PO SCH (21:56)
[2023-06-12] MEDS: FERROUS SULFATE 325 MG TAB PO SCH (21:56)
[2023-06-12] MEDS: NA CHLORIDE 0.9% 1,000 ML IV SCH (21:56)
[2023-06-12] MEDS: MORPHINE 2 MG/ML SYR IV PRN (21:57)
[2023-06-12 22:52] VITALS: BMI 23.0
[2023-06-12] MEDS: Oxycodone HCl/Acetaminophen 5/325 MG TAB PO PRN (23:47)
[2023-06-13 02:49] VITALS: O2SAT 100
[2023-06-13 05:25] LABS: Absolute Basophils 0.1 K/uL (0-0.5); Absolute Eosinophils 0.4 K/uL (0-0.5); Absolute Monocytes 0.6 K/uL (0.1-1.3); Absolute Neutrophil 2.5 K/uL (1.8-8.0); Basophils % 1.1 % (0-1.3); Eosinophils % 6.5 % (0-4.4); Hematocrit 25.7 % (36.0-45.0); Hemoglobin 8.7 g/dL (12.0-15.0); Lymphocytes % 36.6 % (15.3-44.8); MCH 30.4 pg (27.0-35.0); MCV 89.3 fL (80-100); MPV 8.2 fL (7.6-11.3); Neutrophils % 45.8 % (41.7-73.7); Nucleated Red Blood Cells % 0.1 % (0-0); Platelets 450 thou/uL (152-406); RBC Red Blood Cell Count 2.88 M/uL (3.86-4.86); Red Cell Distribution Width 17.6 % (12.1-15.2)
[2023-06-13 05:38] LABS: Albumin 2.2 g/dL (3.4-5.0); Albumin/Globulin Ratio 0.6 (1.1-1.8); Anion Gap 10.5 mEq/L (5.0-15.0); Bilirubin Total 0.4 mg/dL (0.2-1.0); Potassium 3.5 mEq/L (3.5-5.1); Protein, Total 6.2 g/dL (6.4-8.2); Troponin High Sensitivity 9.9 pg/mL (<58.9)
[2023-06-13] MEDS: MONTELUKAST 10 MG TAB PO SCH (09:26)
[2023-06-13] MEDS: ENOXAPARIN 40 MG/0.4 ML SQ SCH (09:26)
[2023-06-13] MEDS: LIDOCAINE 4% PATCH TOP SCH (09:27)
--- NOTE | 2023-06-13 13:57 | P.DS ---
Admission Date: 06/12/23 Discharge Date: 06/13/23 Disposition: ROUTINE DISCHARGE Discharge Condition: GOOD Reason for Admission: Altered mental status with drowsiness and near syncope Brief History of Present Illness: 77-year-old female with history of hypertension diabetes, mild cognitive impairment, resides with family at baseline, recent L4 S1 fusion and laminectomy 2 months ago, status post Reo hospitalized for presumed infection of the laminectomy site, diagnosed by ID to have discitis and recommended 6 weeks of antibiotics until 06/09/23. Patient was subsequently also transferred to rehab and received PT and then discharged to home PT about a week ago.Today She presented because of her near syncope state with confusion and incoherent speech as witnessed by the son. Son reported patient was nearly slumped and rep eatedly almost falling over in her wheelchair whenever he prop her up . No reported seizure lack of responsiveness shortness of breath or chest pain was reported. Patient feels she was more sleepy rather than passing out . She states she has been having worsening low back pain radiating to her buttocks and to the thigh since after her surgery. She reported pain has gotten worse recently. She was seen in urgent care 2 days ago because of worsening pain symptoms. She says she received a steroid injection in her buttocks as well as a hide gabapentin was increased from 600 twice daily to 800 3 times daily. She is very worried about the pain now. She is conversant and able to give good history. On arrival in the ED blood pressure was low at 81/42, she received 1 L normal saline bolus and blood pressure improved to 154/76 now. Pulse was nontachycardic at 76, afebrile, EKG shows normal sinus rhythm borderline QTc but no ST segment changes. Troponin was negative. Lactic acid was mildly elevated at 2.1 but repeat trending down to normal range. WBC was normal but hemoglobin of 8.5, BMP shows normal creatinine. Alkaline phosphatase was mildly elevated at 153 but normal AST and ALT. Patient has been admitted for metabolic encephalopathy as well as hypotension Hospital Course: Pt is a 77 yo female with past medical history of hypertension, diabetes, mild cognitive impairment, resides with family at baseline, recent L4 S1 fusion and laminectomy 2 months ago, status post re-hospitalization for presumed infection of the laminectomy site, diagnosed by ID to have discitis and recommended 6 weeks of antibiotics until 06/09/23 who presented with near syncope. Her son reported that pt was sleepy. On admission, pt complained of low back pain. On admission, her BP was 81/42. We bolused IVF and BP improved to 154/76. Pt was admitted for acute metabolic encephalopathy due to hypotension. Of note, pt recently increased the dose of her gabapentin from 600mg po BID to 800 mg po TID. We held the gabapentin and her symptoms resolved. We also gave lidocaine patch and prn flexeril for the back pain. Pt reported that she completed the merrem for post-laminectomy infection. She did not have any leukocytosis or fever. We continued brad emd for otherc hronic medical problems. Pt requested to be discharged. She was in NAD prior to discharge. Vital Signs/Physical Exam: Temp Pulse Resp BP Pulse Ox 97.5 F 80 16 168/72 H 98 06/13/23 08:00 06/13/23 08:00 06/13/23 08:00 06/13/23 08:00 06/13/23 08:00 Laboratory Data at Discharge: WBC 5.50 thou/uL (4.3-10.9) 06/13/23 04:37 Hgb 8.7 g/dL (12.0-15.0) L 06/13/23 04:37 Hct 25.7 % (36.0-45.0) L 06/13/23 04:37 Plt Count 450 thou/uL (152-406) H 06/13/23 04:37 PT 12.6 SECONDS (9.5-12.5) H 06/12/23 14:30 INR 1.15 06/12/23 14:30 APTT 30.5 SECONDS (24.3-36.9) 06/12/23 19:50 Sodium 143 mEq/L (136-145) 06/13/23 04:37 Potassium 3.5 mEq/L (3.5-5.1) 06/13/23 04:37 BUN 11 mg/dL (7-18) 06/13/23 04:37 Creatinine 0.55 mg/dL (0.55-1.02) 06/13/23 04:37 Glucose 103 mg/dL (74-106) 06/13/23 04:37 Magnesium 1.9 mg/dL (1.6-2.4) 06/12/23 14:30 Total Bilirubin 0.4 mg/dL (0.2-1.0) 06/13/23 04:37 AST 27 U/L (15-37) 06/13/23 04:37 ALT 21 U/L (13-56) 06/13/23 04:37 Alkaline Phosphatase 151 U/L (45-117) H 06/13/23 04:37 Lipase 20 U/L (13-75) 06/12/23 14:30 Home Medications: Ferrous Sulfate [Ferrous Sulfate*] 325 mg PO TID 30 Days #90 tab 06/13/23 Gabapentin 300 mg PO TID 30 Days #90 tab 06/13/23 Lidocaine 4% Patch [Lidoderm 5% Patch*] 1 patch TOP DAILY 31 Days #31 pat 06/13/23 Losartan Potassium 100 mg PO DAILY 06/13/23 Oxycodone HCl/Acetaminophen [Percocet 5/325 Tab*] 1 tab PO Q4H PRN 3 Days #18 tab 06/13/23 New Medications: Ferrous Sulfate [Ferrous Sulfate*] 325 mg PO TID 30 Days #90 tab Gabapentin 300 mg PO TID 30 Days #90 tab Lidocaine 4% Patch [Lidoderm 5% Patch*] 1 patch TOP DAILY 31 Days #31 pat Oxycodone HCl/Acetaminophen [Percocet 5/325 Tab*] 1 tab PO Q4H PRN 3 Days #18 tab PRN Reason: Pain Scale 5-7 (Moderate) Physician Discharge Instructions: Continue ad blair activity. Take Gabapentin 300mg po TID and other home meds. Follow up with PCP within 1 week. Diet: AHA Activity: Ad blair Followup: NONE,NONE [Primary Care Provider] -
[2023-06-13 15:13] VITALS: TEMP 97.9
[2023-06-13] MEDS: HYDRALAZINE HCL 20 MG/ML VIAL IV PRN (16:07)
[2023-06-13] MEDS: LOSARTAN POTASSIUM 50 MG TABLET PO SCH (17:12)
[2023-06-13 17:40] VITALS: BP 144/63
== END 2023-06-13 18:30 | disposition home or self-care (01) | DRG 93 ==
LOC: ER 13:33 → ERHOLD 19:43 → 4TH 20:32
PROVIDERS: ADMIT Internal Medicine; ATTEND Hospitalist
DX: G92.8 Other toxic encephalopathy (principal); I10 Essential (primary) hypertension; I95.9 Hypotension, unspecified; E78.00 Pure hypercholesterolemia, unspecified; E11.9 Type 2 diabetes mellitus without complications; G89.29 Other chronic pain; M54.50 Low back pain, unspecified; T42.6X5A Adverse effect of other antiepileptic and sedative-hypnotic drugs, initial encounter; Z79.4 Long term (current) use of insulin; Z90.49 Acquired absence of other specified parts of digestive tract; Z86.14 Personal history of Methicillin resistant Staphylococcus aureus infection; Z79.899 Other long term (current) drug therapy; Z96.659 Presence of unspecified artificial knee joint; Z96.653 Presence of artificial knee joint, bilateral
CPT/HCPCS: 36415; 70450; 71045; 80048; 80053; 80076; 81001; 82565; 82947; 83605; 83690; 83735; 83880; 84484; 85025; 85610; 85730; 87040; 93005; 99285; J0360; J1650; J2001; J2270; J7030

== ENCOUNTER 2023-06-29 14:16 | Observation (INO) | payer OTHER ==
--- NOTE | 2023-06-29 15:05 | RAD REPORT ---
EXAM DESCRIPTION: CT - Head Brain Wo Cont - 06/29/2023 2:33 pm CLINICAL HISTORY: DIZZINESS COMPARISON: Head Brain Wo Cont dated 06/12/2023; Head Brain Wo Cont dated 12/19/2021 TECHNIQUE: Noncontrast head CT images were obtained without IV contrast. Multiplanar reformats were generated and reviewed. All CT scans are performed using dose optimization technique as appropriate and may include automated exposure control or mA/KV adjustment according to patient size. FINDINGS: No intracranial hemorrhage, mass, or edema. Midline structures are unremarkable. Normal ventricular caliber for age. Corado-white matter differentiation is preserved, without evidence of acute infarct. No abnormal extra- axial fluid collections. Mild burden of nonspecific periventricular and deep white matter hypodensi ties, most suggestive of chronic small vessel ischemic changes. Mastoid air cells and visualized portions of the paranasal sinuses are clear. No acute bony findings. IMPRESSION: No evidence of an acute intracranial process.
--- NOTE | 2023-06-29 15:16 | RAD REPORT ---
EXAM DESCRIPTION: CT - Chest For Pe Angio - 06/29/2023 2:47 pm CLINICAL HISTORY: syncope/chest pain COMPARISON: Chest For Pe Angio dated 08/04/2018; Thorax Wo Con dated 02/03/2016; THORAX WO CONTRAST gonsalo ed 12/28/2014; CTANGIO CHEST dated 09/19/2014; Chest Single View dated 06/29/2023; Chest Single View da radha 06/12/2023 TECHNIQUE: Thin axial CT images of the chest were obtained following administration of 100 mL Isovue 370 IV contrast. Multiplanar reconstructions, and maximum intensity projection reconstructions were generated and reviewed. Exam utilizes a protocol for optimal evaluation of pulmonary arterial tree. All CT scans are performed using dose optimization technique as appropriate and may include automated exposure control or mA/KV adjustment according to patient size. FINDINGS: Pulmonary arteries are normal. No emboli or other suspicious finding. No acute or signific ant aorta findings. No mass or infiltrate in the lung parenchyma. No pleural thickening or pleural effusion. No pneumotho rax. No abnormal mediastinal or hilar masses or lymphadenopathy seen. No chest wall mass or abnormal axill iary lymphadenopathy. No suspicious osseous lesions. Healing/healed right antro lateral rib fractures. Upper abdomen is separately evaluated on dedicated CT abdomen/ pelvis of the same day. IMPRESSION: No evidence of acute central pulmonary emboli. Negative CT scan of the chest for other significant findings. Upper abdomen is separately evaluated on dedicated CT abdomen/pelvis of the same day.
[2023-06-29 15:36] LABS: Absolute Basophils 0.1 K/uL (0-0.5); Absolute Eosinophils 0.1 K/uL (0-0.5); Absolute Lymphocytes (CBC) 2.2 K/uL (0.7-4.9); Absolute Monocytes 0.5 K/uL (0.1-1.3); Basophils % 1.3 % (0-1.3); Eosinophils % 1.3 % (0-4.4); Hematocrit 24.2 % (36.0-45.0); Hemoglobin 8.2 g/dL (12.0-15.0); Lymphocytes % 37.5 % (15.3-44.8); MCH 29.3 pg (27.0-35.0); MCHC 33.7 g/dL (32.0-36.0); MPV 7.8 fL (7.6-11.3); Monocytes % 8.2 % (3.3-12.3); Neutrophils % 51.7 % (41.7-73.7); Nucleated Red Blood Cells % 0.1 % (0-0); Platelets 335 thou/uL (152-406); RBC Red Blood Cell Count 2.79 M/uL (3.86-4.86); Red Cell Distribution Width 16.3 % (12.1-15.2)
[2023-06-29 15:48] LABS: Albumin 2.4 g/dL (3.4-5.0); Albumin/Globulin Ratio 0.6 (1.1-1.8); Anion Gap 8.1 mEq/L (5.0-15.0); Bilirubin Direct 0.1 mg/dL (0-0.2); Bilirubin Indirect, Calculated 0.4 mg/dL (0.2-0.8); Bilirubin Total 0.5 mg/dL (0.2-1.0); Magnesium 1.6 mg/dL (1.6-2.4); Potassium 4.1 mEq/L (3.5-5.1); Protein, Total 6.4 g/dL (6.4-8.2); Troponin High Sensitivity 8.4 pg/mL (<58.9)
--- NOTE | 2023-06-29 16:01 | RAD REPORT ---
EXAM DESCRIPTION: CT - Abdomen Pelvis W Contrast - 06/29/2023 2:47 pm CLINICAL HISTORY: abd pain, syncope COMPARISON: CT ABD PELVIS W CONTRAST dated 11/06/2014; CT ABD PELVIS W CONTRAST dated 10/09/2012; CT AB D PELVIS W CONTRAST dated 04/24/2008; Chest For Pe Angio dated 06/29/2023; Angio Aorta For Dissection dated 10/02/2017; Lumbar Spine 3 Views dated 05/20/2023 TECHNIQUE: Thin cut axial CT imaging of the abdomen and pelvis was performed following intravenous a dministration of 100 mL Isovue 370. Multiplanar reformats were generated and reviewed. All CT scans are performed using dose optimization technique as appropriate and may include automated exposure control or mA/KV adjustment according to patient size. FINDINGS: No suspicious findings in the lung bases. The liver, spleen, adrenal glands, and pancreas show no suspicious findings. Gallbladder and biliary tree are also without suspicious finding. Symmetric renal function is seen with no hydronephrosis or suspicious renal mass. Contrast excretion within the proximal renal collecting systems limits evaluation for radiopaque calculi. Long segments of mild small bowel dilation throughout the abdomen, with minimal short-segment air-flu id levels. No bowel wall thickening. Ovoid fat density lesion within the lumen of the proximal ascend ing colon measuring 1.9 cm is stable, and suggests a lipomatous polyp. No free air, free fluid or inf lammatory stranding. No hernia, mass or bulky lymphadenopathy. The urinary bladder is suboptimally di stended limiting evaluation. No suspicious bony findings. Sequelae of transpedicular and anterior fusion L4-S1. Fracture of S1 at the level of the fusion and vertebral augmentation, with 1 cm anterior subluxation of the superior fr agment, see sag image 61 series 203. IMPRESSION: Long segments of mild small bowel dilation throughout the abdomen, with minimal short-se gment air-fluid levels, suggesting ileus. Fracture of S1 at the level of the fusion and vertebral augmentation, with 1 cm anterior subluxation of the superior fragment, likely chronic.
--- NOTE | 2023-06-29 16:11 | RAD REPORT ---
EXAM DESCRIPTION: RADChest Single View06/29/2023 2:52 pm CLINICAL HISTORY: dizziness COMPARISON: Chest Single View dated 06/12/2023; Chest Single View dated 05/13/2023; Chest Single View dated 05/12/2023; Chest Pa And Lat (2 Views) dated 09/17/2022 TECHNIQUE: Portable AP view of the chest. FINDINGS: The lungs are clear. No pneumothorax or effusion. The cardiomediastinal contours are unre markable. IMPRESSION: No acute cardiopulmonary process.
[2023-06-29 16:16] LABS: PTT, Activated Partial Thromb 32.4 SECONDS (24.3-36.9)
[2023-06-29 16:17] LABS: PT Prothrombin Time 13.1 SECONDS (9.5-12.5); Protime INR 1.2
--- NOTE | 2023-06-29 16:34 | RAD REPORT ---
EXAM DESCRIPTION: US - Extrem Venous W Compress Diony - 06/29/2023 3:06 pm CLINICAL HISTORY: Swelling COMPARISON: None. TECHNIQUE: Real-time sonographic evaluation of the bilateral lower extremity deep venous systems was performed. FINDINGS: Normal compressibility, flow augmentation, phasic flow and spontaneous flow is identified in both the left and right lower extremity deep venous systems. No intraluminal filling defects seen. IMPRESSION: No DVT in either lower extremity.
[2023-06-29 16:37] LABS: Specific Gravity > 1.030 (1.005-1.030); Sqamous Epithelial <5 /HPF (None Seen); Urine Bacteria None Seen /HPF (<20); Urine Bilirubin NEGATIVE (Negative); Urine Blood Negative (Negative); Urine Clarity Clear (Clear); Urine Color Colorless (Yellow); Urine Culture Reflex Order NOT NEEDED; Urine Glucose NEGATIVE (Negative); Urine Ketones NEGATIVE (Negative); Urine Microscopic Reflex YN ORDER UMIC; Urine Nitrite NEGATIVE (Negative); Urine Protein NEGATIVE (Negative); Urine RBC <5 /HPF (None Seen); Urine Urobilinogen Normal (Normal); Urine WBC <5 /HPF (<5)
[2023-06-29 16:43] LABS: Barbiturates NEGATIVE (NEGATIVE); Benzodiazepines NEGATIVE (NEGATIVE); Cocaine NEGATIVE (NEGATIVE); METHAMPHETAM NEGATIVE (NEGATIVE); Methadone NEGATIVE (NEGATIVE); Opiates NEGATIVE (NEGATIVE); Phencyclidine NEGATIVE (NEGATIVE); THC Cannibis NEGATIVE (NEGATIVE)
--- NOTE | 2023-06-29 17:03 | ER ---
Nurse's Notes [facility] Name: Estephania Corrales Age: 77 yrs Sex: Female : 1945 Arrival Date: 06/29/2023 Time: 14:16 Bed 2 Private MD: Diagnosis: Altered mental status, unspecified;Ileus, unspecified;Adverse effect of other drugs, medicaments and biological substances Presentation: 06/28 14:25 Chief complaint: EMS states: Pt from home, family called EMS for pt becoming suddenly ph unresponsive, minimally responsive to painful stimuli for EMS, bottle of narcotics found on scene w/ a large amount missing, Narcan administered and pt became more responsive, BP low w/ systolic in 80s, IV established and fluids given, pt awake upon arrival to ED, oriented to person and place, [place] 7.5 filled on 06/24 w/ quantity of 70, only 10 left in bottle, pt denies taking that many, states that she only takes 1 pill twice a day. Coronavirus screen: Vaccine status: Patient reports receiving the 2nd dose of the covid vaccine. Ebola Screen: No symptoms or risks identified at this time. Initial Sepsis Screen: Does the patient meet any 2 criteria? No. Patient's initial sepsis screen is negative. Does the patient have a suspected source of infection? No. Patient's initial sepsis screen is negative. Risk Assessment: Do you want to hurt yourself or someone else? Patient reports no desire to harm self or others. Onset of symptoms was June 29, 2023. 14:25 Method Of Arrival: EMS: [facility] 14:25 Acuity: [place] 2 ph Triage Assessment: 14:31 General: Appears in no apparent distress. Behavior is calm, cooperative. Pain: Denies ph pain. Neuro: Level of Consciousness is awake, obeys commands, Oriented to person, place, time. Respiratory: Airway is patent Respiratory effort is even, unlabored. Historical: - Allergies: 14:31 Vancomycin; ph - PMHx: 14:31 Chronic pain; Diabetes - IDDM; Herniated disc; High Cholesterol; Hypertension; ph - PSHx: 14:31 knee replacement; ph - Immunization history:: Adult Immunizations unknown. - Infectious Disease History:: Denies. - Social history:: Smoking status: unknown. - Family history:: not pertinent. - Hospitalizations: : No recent hospitalization is reported. Screenin:32 [facility] ED Fall Risk Assessment (Adult) History of falling in the last 3 months, ph including since admission Yes- fall prone (multiple falls) (3 pts) Confusion or Disorientation No (0 pts) Intoxicated or Sedated Yes (3 pts) Impaired Gait Yes (1 pt) Mobility Assist Device Used Yes (1 pt) Altered Elimination No (0 pt) Score/Fall Risk Level 3 or more points = High Risk Oriented to surroundings, Maintained a safe environment, Hourly rounding (assess needs \T\ fall precautionary measures) done, Used ambulatory aids as needed (educated on \T\ assisted with). Abuse screen: Denies threats or abuse. Denies injuries from another. Nutritional screening: No deficits noted. Tuberculosis screening: No symptoms or risk factors identified. Assessment: 15:15 General: Appears in no apparent distress. Behavior is calm, cooperative. Pain: ph Complains of pain in abdomen. Neuro: Level of Consciousness is awake, alert, obeys commands, Oriented to person, place, time, situation. Cardiovascular: Capillary refill < 3 seconds in bilateral fingers Patient's skin is warm and dry. Respiratory: Airway is patent Respiratory effort is even, unlabored. Musculoskeletal: Circulation, motion, and sensation intact. Range of motion: intact in all extremities. 16:57 Reassessment: Patient appears in no apparent distress at this time. Patient and/or ph family updated on plan of care and expected duration. Pain level reassessed. Patient is alert, oriented x 3, equal unlabored respirations, skin warm/dry/pink. Vital Signs: 14:25 BP 98 / 59; Pulse 87; Resp 18; Temp 97.5; Pulse Ox 96% on R/A; Weight 74.84 kg; Height ph 5 ft. 3 in. ; 15:30 BP 136 / 70; Pulse 66; Resp 18; Pulse Ox 100% on R/A; ph 16:54 BP 146 / 82; Pulse 71; Resp 18; Pulse Ox 100% on R/A; ph 14:25 Body Mass Index 29.23 (74.84 kg, 160.02 cm) ph ED Course: 14:18 Patient arrived in ED. rn 14:18 Gaurang Rosales MD is Attending Physician. rn 14:25 Gisella Lucia RN is Primary Nurse. ph 14:27 EKG done, by ED staff, reviewed by Gaurang Rosales MD. bc6 14:31 Triage completed. ph 14:32 Arm band placed on Patient placed in an exam room. ph 14:32 Patient has correct armband on for positive identification. Bed in low position. Call ph light in reach. Side rails up X2. Client placed on continuous cardiac and pulse oximetry monitoring. NIBP monitoring applied. Door closed. Noise minimized. Warm blanket given. 14:34 CT Head Brain wo Cont In Process Unspecified. EDMS 14:45 Maintain EMS IV. Dressing intact. Good blood return noted. Site clean \T\ dry. Gauge \T\ ph site: [address] 14:49 CT Chest For PE Angio In Process Unspecified. EDMS 14:49 CT Abd/Pelvis - IV Contrast Only In Process Unspecified. EDMS 14:53 Chest Single View XRAY In Process Unspecified. EDMS 15:08 Extrem Venous W Compression Diony US In Process Unspecified. EDMS 16:57 No provider procedures requiring assistance completed. ph 17:02 Jean-Pierre Duff MD is Hospitalizing Provider. rn 18:45 Patient admitted, IV remains in place. ph Administered Medications: 15:18 Drug: NS 0.9% IV 1000 ml IV at 1000 ml once Route: IV; Rate: 1000 ml; Site: right ph antecubital; 16:30 Follow up: Response: No adverse reaction; IV Status: Completed infusion ph Medication: 14:32 VIS not applicable for this client. ph Outcome: 17:03 Decision to Hospitalize by Provider. rn 18:45 Admitted to Med/surg accompanied by tech, family with patient, via wheelchair, room ph 206, 18:45 Condition: good 18:45 Instructed on the need for admit, 18:46 Patient left the ED. ph Signatures: Dispatcher [employer] EDGaurang Porter MD MD rn Hall, Patricia, RN RN ph [place], [place] [facility]
--- NOTE | 2023-06-29 17:03 | EDPHYS ---
Physician Documentation [facility] Name: Estephania Corrales Age: 77 yrs Sex: Female : 1945 Arrival Date: 06/29/2023 Time: 14:16 Bed 2 Private MD: ED Physician Gaurang Rosales HPI: 06/28 14:35 This 77 yrs old Female presents to ER via EMS with complaints of unresponsive. rn 14:35 The patient presents with decreased responsiveness. Onset: The symptoms/episode rn began/occurred just prior to arrival. Possible causes: drug use, narcotics. Associated signs and symptoms: Pertinent negatives: abdominal pain, chest pain, headache, seizure, shortness of breath. Current symptoms: In the emergency department the patient's symptoms have improved. It is unknown whether or not the patient has had similar symptoms in the past. Per EMS family called 911 for unresponsiveness. Patient was talking to them and then was noted to be minimally responsive. Was responsive to painful stimuli when EMS arrived, family tried CPR but no one checked if she had a pulse. EMS had pulse and responsive to painful stimuli upon their arrival. They found a bottle of hydrocodone that was recently filled with a significant amount missing. Patient denies taking too many pills. States is only taking it twice a day. Takes it for chronic back pain. No head injury. No fever. Does not feel ill. No vomiting or diarrhea.. Historical: - Allergies: 14:31 Vancomycin; ph - PMHx: 14:31 Chronic pain; Diabetes - IDDM; Herniated disc; High Cholesterol; Hypertension; ph - PSHx: 14:31 knee replacement; ph - Immunization history:: Adult Immunizations unknown. - Infectious Disease History:: Denies. - Social history:: Smoking status: unknown. - Family history:: not pertinent. - Hospitalizations: : No recent hospitalization is reported. ROS: 14:35 Constitutional: Negative for fever, chills, and weight loss, Cardiovascular: Negative rn for chest pain, palpitations, and edema, Respiratory: Negative for shortness of breath, cough, wheezing, and pleuritic chest pain, Abdomen/GI: Negative for abdominal pain, nausea, vomiting, diarrhea, and constipation, Back: Positive for chronic back pain MS/Extremity: Negative for injury and deformity, Skin: Negative for injury, rash, and discoloration, Neuro: Positive for generalized weakness Exam: 14:38 Constitutional: This is a well developed, well nourished patient who is awake, alert, rn and in no acute distress. Head/Face: Normocephalic, atraumatic. ENT: Dry mucous membranes, no tongue laceration noted Neck: Trachea midline, no masses palpated, and no cervical lymphadenopathy. Supple, full range of motion without nuchal rigidity, or vertebral point tenderness. No Meningismus. Cardiovascular: Regular rate and rhythm. No pulse deficits. Respiratory: No increased work of breathing, no retractions or nasal flaring. Abdomen/GI: Soft, mild lower abdominal tenderness. No masses palpated. No peritoneal signs MS/ Extremity: Pulses equal, no cyanosis. Left lower extremity slightly larger in circumference than right lower extremity Neuro: Awake and alert, GCS 15, oriented to person, place and situation. Cranial nerves II-XII grossly intact. Motor strength 5/5 in all extremities. Sensory grossly intact. 17:26 ECG was reviewed by the Attending Physician. rn Vital Signs: 14:25 BP 98 / 59; Pulse 87; Resp 18; Temp 97.5; Pulse Ox 96% on R/A; Weight 74.84 kg; Height ph 5 ft. 3 in. ; 15:30 BP 136 / 70; Pulse 66; Resp 18; Pulse Ox 100% on R/A; ph 16:54 BP 146 / 82; Pulse 71; Resp 18; Pulse Ox 100% on R/A; ph 14:25 Body Mass Index 29.23 (74.84 kg, 160.02 cm) ph MDM: 14:19 Patient medically screened. rn 16:59 Differential Diagnosis: CVA, electrolyte abnormality, hypoglycemia, overdose, TIA, UTI, rn volume depletion, Overdose of methocarbamol. Data reviewed: vital signs, nurses notes, lab test result(s), radiologic studies, CT scan, and as a result, I will admit patient. Consideration of Admission/Observation Patient was admitted/placed on observation. Escalation of care including admission/observation considered. Counseling: I had a detailed discussion with the patient and/or guardian regarding the historical points, exam findings, and any diagnostic results supporting the discharge/admit diagnosis, lab results, radiology results, the need for further work-up and treatment in the hospital. ED course: Patient much more alert, now states she did not take too much of her hydrocodone, instead she states took her methocarbamol only for the second time. Son is now here and states that she was Falling asleep repeatedly, he did not see her breathing appropriately so he started CPR. CT here is showing ileus, patient with abdominal pain which is why CT was obtained. Will admit to hospitalist service for further observation, clearance of her medication and to address ileus. 06/28 14:20 Order name: Basic Metabolic Panel; Complete Time: 16:48 rn 06/28 14:20 Order name: CBC with Diff; Complete Time: 15:44 06/28 14:20 Order name: Hepatic Function; Complete Time: 16:48 06/28 14:20 Order name: Magnesium; Complete Time: 16:48 06/28 14:20 Order name: Protime (+inr); Complete Time: 16:48 06/28 14:20 Order name: Ptt, Activated; Complete Time: 16:48 06/28 14:20 Order name: Troponin High Sensitivity; Complete Time: 16:48 06/28 14:20 Order name: UDS; Complete Time: 16:48 06/28 14:20 Order name: Urinalysis w/ reflexes; Complete Time: 16:48 06/28 14:20 Order name: Salicylate; Complete Time: 16:48 06/28 15:33 Order name: CREATININE WHOLE BLOOD; Complete Time: 15:44 EDAK 06/28 17:24 Order name: Urinalysis w/ reflexes EDMS 06/28 17:24 Order name: Basic Metabolic Panel EDMS 06/28 17:24 Order name: Basic Metabolic Panel EDAK 06/28 17:24 Order name: CBC with Automated Diff EDMS 06/28 17:24 Order name: CBC with Automated Diff EDMS 06/28 17:24 Order name: Magnesium EDMS 06/28 17:24 Order name: Magnesium EDMS 06/28 14:20 Order name: CT Head Brain wo Cont; Complete Time: 15:44 06/28 14:20 Order name: Chest Single View XRAY; Complete Time: 16:48 06/28 14:29 Order name: CT Chest For PE Angio; Complete Time: 15:44 06/28 14:30 Order name: Extrem Venous W Compression Dion[place] US; Complete Time: 16:48 06/28 14:38 Order name: CT Abd/Pelvis - IV Contrast Only; Complete Time: 16:48 rn 06/28 14:20 Order name: EKG; Complete Time: 14:20 rn 06/28 14:20 Order name: Cardiac monitoring; Complete Time: 14:33 rn 06/28 14:20 Order name: EKG - Nurse/Tech; Complete Time: 14:26 rn 06/28 14:20 Order name: IV Saline Lock; Complete Time: 14:33 rn 06/28 14:20 Order name: Labs collected and sent; Complete Time: 15:18 rn 06/28 14:20 Order name: NPO; Complete Time: 14:33 rn 06/28 14:20 Order name: O2 Per Protocol; Complete Time: 14:33 rn 06/28 14:20 Order name: O2 Sat Monitoring; Complete Time: 14:33 rn EC:26 Rate is 74 beats/min. Rhythm is regular. QRS [place] is Normal. [place] interval is normal. QRS rn interval is normal. QT interval is normal. No Q waves. T waves are Normal. No ST changes noted. Clinical impression: NSR w/ Non-specific ST/T Changes. Interpreted by me. Reviewed by me. Administered Medications: 15:18 Drug: NS 0.9% IV 1000 ml IV at 1000 ml once Route: IV; Rate: 1000 ml; Site: right ph antecubital; 16:30 Follow up: Response: No adverse reaction; IV Status: Completed infusion ph Disposition Summary: 06/29/23 17:03 Hospitalization Ordered Notes: Hospitalization Status: Observation rn Provider: Jean-Pierre Duff rn Location: Telemetry/[facility] (observation) rn Condition: Stable rn Problem: new rn Symptoms: have improved rn Bed/Room Type: Standard rn Room Assignment: 206(06/29/23 17:41) bd Diagnosis - Altered mental status, unspecified rn - Ileus, unspecified rn - Adverse effect of other drugs, medicaments and biological substances rn Forms: - Medication Reconciliation Form rn - SBAR form rn - Leadership Thank You Letter rn Signatures: Dispatcher [employer] [facility] Nereida Nails Roman, MD MD rn Hall, Patricia, RN RN ph Corrections: (The following items were deleted from the chart) 14:20 14:20 BASIC METABOLIC PANEL+C.LAB.BRZ ordered. EDMS EDMS 14:20 14:20 CBC+H.LAB.BRZ ordered. EDMS EDMS 14:20 14:20 HEPATIC FUNCTION+C.LAB.BRZ ordered. EDMS EDMS 14:20 14:20 MAGNESIUM+C.LAB.BRZ ordered. EDMS EDMS 14:20 14:20 PROTIME (+INR)+COAG.LAB.BRZ ordered. EDMS EDMS 14:20 14:20 PTT, ACTIVATED+COAG.LAB.BRZ ordered. EDMS EDMS 14:20 14:20 Troponin High Sensitivity+C.LAB.BRZ ordered. EDMS EDMS 14:20 14:20 URINE DRUG SCREEN+UC.LAB.BRZ ordered. EDMS EDMS 14:20 14:20 Urinalysis+U.LAB.BRZ ordered. EDMS EDMS 14:38 14:38 Abdomen Pelvis W Con+CT.RAD.BRZ ordered. EDMS EDMS 17:41 17:03 rn bd
--- NOTE | 2023-06-29 17:14 | P.HP ---
Certification for Inpatient Patient admitted to: Inpatient With expected LOS: <2 Midnights Practitioner: I am a practitioner with admitting privileges, knowledge of patient current condition, hospital course, and medical plan of care. Services: Services provided to patient in accordance with Admission requirements found in Title 42 Section 412.3 of the Code of Federal Regulations Patient History Date of Service: 06/29/23 Reason for admission: Syncope History of Present Illness: 77-year-old female with a past medical history Chronic pain; Diabetes - IDDM; Herniated disc; High Cholesterol; Hypertension; presents to the emergency room with unresponsiveness. Symptoms occurred just prior to arrival. Reports history of narcotic use, patient was given Narcan and responded to Narcan. Patient more alert on arrival to the ER.she states took her methocarbamol only for the second time. Son is now here and states that she was Falling asleep repeatedly, he did not see her breathing appropriately so he started CPR. She denies chest pain, abdominal pain, nausea vomiting diarrhea, seizure, headache, plan to admit for polysubstance abuse, accidental overdose, ileus, hypotensive on evaluation to the ED 5 BP 98 / 59; Pulse 87; Resp 18; Temp 97.5; Pulse Ox 96% on R/A; Weight 74.84 kg; Height 5 ft. 3 in. laboratory evaluation; microcytic anemia hemoglobin 8.7/8.2 urine drug screen pending, CT of the head IMPRESSION: No evidence of an acute intracranial process. CT of the abdomen pelvis IMPRESSION: Long segments of mild small bowel dilation throughout the abdomen, with minimal shortsegment air-fluid levels, suggesting ileus.Fracture of S1 at the level of the fusion and vertebral augmentation, with 1 cm anterior subluxation of the superior fragment, likely chronic. Venous Doppler ultrasound IMPRESSION: No DVT in either lower extremity. Allergies vancomycin Allergy (Verified 06/12/23 22:47) Anaphylaxis Home Medications: Ferrous Sulfate [Ferrous Sulfate*] 325 mg PO TID 30 Days #90 tab 06/13/23 Gabapentin 300 mg PO TID 30 Days #90 tab 06/13/23 Lidocaine 4% Patch [Lidoderm 5% Patch*] 1 patch TOP DAILY 31 Days #31 pat 06/13/23 Losartan Potassium 50 mg PO DAILY 60 Days #60 tab 06/13/23 Oxycodone HCl/Acetaminophen [Percocet 5/325 Tab*] 1 tab PO Q4H PRN 3 Days #18 tab 06/13/23 - Past Medical/Surgical History Diabetic: Yes -: HTN -: NIDDM -: HYPERLIPIDEMIA -: HERNIATED DISCS X3 -: GLAUCOMA -: anemia -: uti -: mrsa wound -: anaphylactic rxn vanco - unresponsive -: CHOLECYSTECTOMY -: APPENDECTOMY -: SEBAS KNEE REPLACEMENT -: ABD HERNIA SURGERY -: X2 - Family History Father -: Heart disease, Stroke - Social History Alcohol use: No CD- Drugs: No Caffeine use: Yes Review of Systems per HPI Physical Examination - Physical Exam General: Alert, In no apparent distress, Oriented x3 HEENT: Atraumatic, Normocephalic Neck: Supple, 2+ carotid pulse no bruit Respiratory: Normal air movement, Diminished Cardiovascular: Normal pulses, Regular rate/rhythm Capillary refill: <2 Seconds Gastrointestinal: Other (Hypoactive) Musculoskeletal: No clubbing, No swelling, Other (right rib pain) Integumentary: No rashes, No breakdown Neurological: Normal speech, Other (Generalized weak) - Studies Laboratory Data (last 24 hrs) 06/29/23 06/29/23 06/29/23 15:15 15:15 15:15 WBC 5.70 Hgb 8.2 L Hct 24.2 L Plt Count 335 PT 13.1 H INR 1.20 APTT 32.4 Sodium 139 Potassium 4.1 BUN 11 Creatinine 0.75 Glucose 135 H Magnesium 1.6 Total Bilirubin 0.5 AST 17 ALT 13 Alkaline Phosphatase 101 Assessment and Plan - Plan Assessment plan polysubstance abuse, accidental overdose [facility] presents to the emergency room with unresponsiveness. Symptoms occurred just prior to arrival. Reports history of narcotic use, patient was given Narcan and responded to Narcan. Patient more alert on arrival to the ER.she states took her methocarbamol only for the second time. Son is now here and states that she was Falling asleep repeatedly, he did not see her breathing appropriately so he started CPR. She denies chest pain, abdominal pain, nausea vomiting diarrhea, seizure, headache, Fall precautions, PRN narcan resp <8 ileus clear liq diet, advance as tolerated urine drug screen pending, CT of the head IMPRESSION: No evidence of an acute intracranial process. CT of the abdomen pelvis IMPRESSION: Long segments of mild small bowel dilation throughout the abdomen, with minimal shortsegment air- fluid levels, suggesting ileus. Fracture of S1 at the level of the fusion and vertebral augmentation, with 1 cm anterior subluxation of the superior fragment, likely chronic. Venous Doppler ultrasound IMPRESSION: No DVT in either lower extremity hypotensive IV fluids, BP 98 / 59; Pulse 87; Resp 18; Temp 97.5; Pulse Ox 96% on R/A; Weight 74.84 kg; Height 5 ft. 3 in hold antihypertensives chronic right/old/healed rib fractures S1 fracture t, likely chronic. Chronic pain Herniated disc CT Healing/healed right antro lateral rib fractures High Cholesterol Hypertension Resume appropriate home medication Diabetes - IDDM Accu-Cheks ACHS, sliding scale and microcytic anemia hemoglobin 8.7/8.2 Full code DVT SCDs Diet clear liq advance as tolerated Disposition Home independent prior . Discharge Plan: Home - Advance Directives Does patient have a Living Will: No Does patient have a Durable POA for Healthcare: No - Code Status/Comfort Care Code Status: Full Code Critical Care: No Time Spent Managing Pts Care (In Minutes): 55
[2023-06-29] MEDS ORDERED: ONDANSETRON 4 MG/2 ML VIAL IV PRN (17:20)
[2023-06-29] MEDS ORDERED: NALOXONE HCL 2 MG/2 ML VIAL IV PRN (17:44)
[2023-06-29 18:57] VITALS: O2SAT 100
[2023-06-29] MEDS: NA CHLORIDE 0.9% 1,000 ML IV SCH (21:14)
[2023-06-29] MEDS: INSULIN REGULAR (HUMAN) 100 UNIT/ML SQ SCH (21:16)
[2023-06-29] MEDS: ENOXAPARIN 40 MG/0.4 ML SQ SCH (21:17)
[2023-06-30 03:57] VITALS: BMI 29.2
[2023-06-30 04:09] LABS: Absolute Eosinophils 0.1 K/uL (0-0.5); Absolute Lymphocytes (CBC) 2.1 K/uL (0.7-4.9); Absolute Monocytes 0.5 K/uL (0.1-1.3); Absolute Neutrophil 2.7 K/uL (1.8-8.0); Basophils % 0.6 % (0-1.3); Eosinophils % 1.6 % (0-4.4); Hematocrit 25.1 % (36.0-45.0); Hemoglobin 8.4 g/dL (12.0-15.0); Lymphocytes % 39.5 % (15.3-44.8); MCH 29.2 pg (27.0-35.0); MCHC 33.6 g/dL (32.0-36.0); MCV 86.8 fL (80-100); MPV 8.9 fL (7.6-11.3); Monocytes % 8.7 % (3.3-12.3); Neutrophils % 49.6 % (41.7-73.7); Platelets 330 thou/uL (152-406); RBC Red Blood Cell Count 2.89 M/uL (3.86-4.86); Red Cell Distribution Width 16.6 % (12.1-15.2)
[2023-06-30 04:24] LABS: Anion Gap 5.7 mEq/L (5.0-15.0); Magnesium 1.6 mg/dL (1.6-2.4); Potassium 3.7 mEq/L (3.5-5.1)
[2023-06-30] MEDS: ACETAMINOPHEN 500 MG TAB PO PRN (04:26)
--- NOTE | 2023-06-30 07:41 | P.DS ---
Admission Date: 06/29/23 Discharge Date: 06/30/23 Disposition: ROUTINE DISCHARGE Reason for Admission: Syncope Brief History of Present Illness: 77-year-old female with a past medical history Chronic pain; Diabetes - IDDM; Herniated disc; High Cholesterol; Hypertension; presents to the emergency room with unresponsiveness. Symptoms occurred just prior to arrival. Reports history of narcotic use, patient was given Narcan and responded to Narcan. Patient more alert on arrival to the ER.she states took her methocarbamol only for the second time. Son is now here and states that she was Falling asleep repeatedly, he did not see her breathing appropriately so he started CPR. She denies chest pain, abdominal pain, nausea vomiting diarrhea, seizure, headache, plan to admit for polysubstance abuse, accidental overdose, ileus, hypotensive on evaluation to the ED 5 BP 98 / 59; Pulse 87; Resp 18; Temp 97.5; Pulse Ox 96% on R/A; Weight 74.84 kg; Height 5 ft. 3 in. laboratory evaluation; microcytic anemia hemoglobin 8.7/8.2 urine drug screen pending, CT of the head IMPRESSION: No evidence of an acute intracranial process. CT of the abdomen pelvis IMPRESSION: Long segments of mild small bowel dilation throughout the abdomen, with minimal shortsegment air-fluid levels, suggesting ileus.Fracture of S1 at the level of the fusion and vertebral augmentation, with 1 cm anterior subluxation of the superior fragment, likely chronic. Venous Doppler ultrasound IMPRESSION: No DVT in either lower extremity. - Physical Exam General: Alert, In no apparent distress, Oriented x3 HEENT: Atraumatic, Normocephalic Neck: Supple, 2+ carotid pulse no bruit Respiratory: Normal air movement, Diminished Cardiovascular: Normal pulses, Regular rate/rhythm Capillary refill: <2 Seconds Gastrointestinal: Other (Hypoactive) Musculoskeletal: No clubbing, No swelling, Other (right rib pain) Integumentary: No rashes, No breakdown Neurological: Normal speech, Other (Generalized weak) Hospital Course: 77-year-old female with a past medical history of chronic pain, reported taking muscle relaxer, was sleeping,/unresponsive, son initiated CPR. Patient was brought to the emergency room, patient responded to Narcan, was awake and alert on evaluation. Patient is stable to discharge follow-up with primary care, educated on avoiding multiple narcotic medications. Discontinuing muscle relaxer. Return to the ER for worsening symptoms Assessment Polypharmacy use Chronic pain on multiple medication Accidental overdose of narcotics/muscle relaxers Ileus-patient tolerated diet Hypotensive improved with IV fluids, hold if blood pressure systolic less than Microcytic anemia-continue [id number] supplement Continue home medicines as previously prescribed GOAL: Clear understanding of disease process INSTRUCTIONS: Physician Discharge Instructions: -DC IV and DC home -Follow-up with PCP in 1 to 2 weeks -Please call Dr. Duff at [phone] if any questions regarding hospital stay -Please call nursing station at [phone] if any nursing or medication questions -Return to the emergency room if symptoms worsen Diet: ADA, low sodium Activity: Fall precautions Vital Signs/Physical Exam: Temp Pulse Resp BP Pulse Ox 97.9 F 79 17 149/65 H 100 06/30/23 04:00 06/30/23 04:00 06/30/23 04:00 06/30/23 04:00 06/30/23 04:00 Laboratory Data at Discharge: WBC 5.40 thou/uL (4.3-10.9) 06/30/23 03:08 Hgb 8.4 g/dL (12.0-15.0) L 06/30/23 03:08 Hct 25.1 % (36.0-45.0) L 06/30/23 03:08 Plt Count 330 thou/uL (152-406) 06/30/23 03:08 PT 13.1 SECONDS (9.5-12.5) H 06/29/23 15:15 INR 1.20 06/29/23 15:15 APTT 32.4 SECONDS (24.3-36.9) 06/29/23 15:15 Sodium 142 mEq/L (136-145) 06/30/23 03:08 Potassium 3.7 mEq/L (3.5-5.1) 06/30/23 03:08 BUN 8 mg/dL (7-18) 06/30/23 03:08 Creatinine 0.56 mg/dL (0.55-1.02) 06/30/23 03:08 Glucose 81 mg/dL (74-106) 06/30/23 03:08 Magnesium 1.6 mg/dL (1.6-2.4) 06/30/23 03:08 Total Bilirubin 0.5 mg/dL (0.2-1.0) 06/29/23 15:15 AST 17 U/L (15-37) 06/29/23 15:15 ALT 13 U/L (13-56) 06/29/23 15:15 Alkaline Phosphatase 101 U/L (45-117) 06/29/23 15:15 Home Medications: Ferrous Sulfate [Ferrous Sulfate*] 325 mg PO TID 30 Days #90 tab 06/13/23 Gabapentin 300 mg PO TID 30 Days #90 tab 06/13/23 Lidocaine 4% Patch [Lidoderm 5% Patch*] 1 patch TOP DAILY 31 Days #31 pat 06/13/23 Losartan Potassium 50 mg PO DAILY 60 Days #60 tab 06/13/23 Oxycodone HCl/Acetaminophen [Percocet 5/325 Tab*] 1 tab PO Q4H PRN 3 Days #18 tab 06/13/23 Diet: ADA Activity: Fall precautions Followup: Diana Forte, PAC [Primary Care Provider] - Time spent managing pt's care (in minutes): 55
--- NOTE | 2023-06-30 12:38 | P.PN ---
Subjective Date of Service: 06/30/23 Chief Complaint: Syncope Admitted for lethargic, treated with Narcan, improved with treatment, History of chronic pain, polypharmacy, Admitted with ileus, bowel movement today, tolerated diet - Physical Exam General: Alert, In no apparent distress, Oriented x3 HEENT: Atraumatic, Normocephalic Neck: Supple, 2+ carotid pulse no bruit Respiratory: Normal air movement, Diminished Cardiovascular: Normal pulses, Regular rate/rhythm Capillary refill: <2 Seconds Gastrointestinal: Positive bowel sounds Musculoskeletal: No clubbing, No swelling, Other (right rib pain) Integumentary: No rashes, No breakdown Neurological: Normal speech, Other (Generalized weak) Review of Systems Per HPI Physical Examination - Vital Signs Temperature: 98.2 F Blood Pressure: 166/67 Pulse: 97 Respirations: 14 Pulse Ox (%): 99 - Studies Laboratory Data (last 24 hrs) 06/29/23 06/29/23 06/29/23 15:15 15:15 15:15 WBC 5.70 Hgb 8.2 L Hct 24.2 L Plt Count 335 PT 13.1 H INR 1.20 APTT 32.4 Sodium 139 Potassium 4.1 BUN 11 Creatinine 0.75 Glucose 135 H Magnesium 1.6 Total Bilirubin 0.5 AST 17 ALT 13 Alkaline Phosphatase 101 Assessment And Plan - Plan Assessment plan poly pharmacy secondary to chronic pain accidental overdose resolved Admitted to [facility] presents to the emergency room with unresponsiveness. Symptoms occurred just prior to arrival. Reports history of narcotic use, patient was given Narcan and responded to Narcan. Patient more alert on arrival to the ER.she states took her methocarbamol only for the second time. Son is now here and states that she was Falling asleep repeatedly, he did not see her breathing appropriately so he started CPR. She denies chest pain, abdominal pain, nausea vomiting diarrhea, seizure, headache, Fall precautions, PRN narcan resp <8 ileus resolved clear liq diet, advance as tolerated urine drug screen pending, CT of the head IMPRESSION: No evidence of an acute intracranial process. CT of the abdomen pelvis IMPRESSION: Long segments of mild small bowel dilation throughout the abdomen, with minimal shortsegment air- fluid levels, suggesting ileus. Fracture of S1 at the level of the fusion and vertebral augmentation, with 1 cm anterior subluxation of the superior fragment, likely chronic. Venous Doppler ultrasound IMPRESSION: No DVT in either lower extremity 06/29 soft bowel movement, tolerating diet hypotensive resolved IV fluids, BP 98 / 59; Pulse 87; Resp 18; Temp 97.5; Pulse Ox 96% on R/A; Weight 74.84 kg; Height 5 ft. 3 in hold antihypertensives chronic right/old/healed rib fractures chronic S1 fracture t, likely chronic. Chronic pain Herniated disc CT Healing/healed right antro lateral rib fractures High Cholesterol Hypertension Resume appropriate home medication Diabetes - IDDM Accu-Cheks ACHS, sliding scale insulin microcytic anemia hemoglobin 8.7/8.2 Full code DVT SCDs Diet clear liq advance as tolerated Disposition Home independent prior . Discharge Plan: Home - Code Status/Comfort Care Code Status: Full Code Critical Care: No Time Spent Managing PTS Care (In Minutes): 35
[2023-06-30 16:16] VITALS: BP 156/72; TEMP 98.5
--- NOTE | 2023-07-01 13:13 | EKG ---
Test Date: 2023-06-29 Test Time: 14:25:26 Choke Setter: ADELINE MEASUREMENT RESULTS: Intervals: Rate: 74 WV: 152 QRSD: 72 QT: 418 QTc: 463 [place]: P: 40 WV: 152 QRS: -28 T: 46 INTERPRETIVE STATEMENTS: Normal sinus rhythm Septal infarct, age undetermined Abnormal ECG Compared to ECG 06/12/2023 14:16:52 Myocardial infarct finding now present Electronically Signed On 07-01-23 13:07:40 CDT by Gilberto Elizabeth
== END 2023-06-30 18:31 | disposition home or self-care (01) ==
LOC: ER 14:16 → ERHOLD 17:19 → 2ND 18:08
PROVIDERS: ADMIT Hospitalist; ATTEND Hospitalist
DX: T40.601A Poisoning by unspecified narcotics, accidental (unintentional), initial encounter (principal); T48.201A Poisoning by unspecified drugs acting on muscles, accidental (unintentional), initial encounter; Y92.019 Unspecified place in single-family (private) house as the place of occurrence of the external cause; G89.29 Other chronic pain; K56.7 Ileus, unspecified; I95.9 Hypotension, unspecified; E78.00 Pure hypercholesterolemia, unspecified; I10 Essential (primary) hypertension; D64.9 Anemia, unspecified; E11.8 Type 2 diabetes mellitus with unspecified complications; Z79.4 Long term (current) use of insulin
CPT/HCPCS: 93005; 85025 ×2; 81001; 80048 ×2; 36415; 83735 ×2; 85610; 82565; 82947 ×4; 80076; 85730; 84484; 80307; 70450; 71275; 74177; 71045; 93970; 97161; 80179; Q9967; J1815 ×3; J1650 ×2; J7030; 96360; 99285; G0378